=== PATIENT | female | born 1965 | race Caucasian/White ===

== ENCOUNTER 2021-04-02 19:28 | Inpatient (IN) | payer MEDICAID ==
[~2021-04-02] VITALS: Ht 162.6 cm; Wt 138.1 kg
[2021-04-02] MEDS ORDERED: PANTOPRAZOLE 40 MG/10 ML VIAL INJ IV STA (19:37)
[2021-04-02] MEDS ORDERED: MORPHINE SULFATE 4 MG/ML SYR/VIAL IV ONE (19:45)
[2021-04-02] MEDS ORDERED: ONDANSETRON HCL 4 MG/2 ML VIAL IV ONE (19:45)
[2021-04-02 20:20] LABS: Basophils # (auto) 0 10 ^3/uL (0-0.2); Eosinophils # (auto) 0 10 ^3/uL (0-0.8); Hemoglobin 12.2 g/dL (12.2-16.2); Lymphocytes # (auto) 1.8 10 ^3/uL (0.4-5.4); Monocytes # (auto) 0.2 10 ^3/uL (0-1.3)
[2021-04-02 20:21] LABS: Basophils % (auto) 0.4 % (0.0-2.0); Eosinophils % (auto) 0.4 % (0.0-7.0); Hematocrit 36.8 % (36.0-46.0); Lymphocytes % (auto) 17.7 % (10.0-50.0); Mean Corpuscular Hemoglobin 25.1 pg (28.0-32.0); Mean Corpuscular Hgb Conc. 33.1 g/dL (32.0-36.0); Mean Corpuscular Volume 75.8 fL (80.0-100.0); Neutrophils # (auto) 7.9 10 ^3/uL (1.6-8.6); Neutrophils % (auto) 79.5 % (37.0-80.0); Red Blood Cells 4.86 10^6/uL (4.0-5.20); Red Cell Distribution Width 16.1 % (11.8-14.3)
[2021-04-02 20:40] LABS: Chloride 104 mmol/L (98-107); Potassium 3.6 mmol/L (3.5-5.1); Sodium 138 mmol/L (136-145)
[2021-04-02 20:50] LABS: Alanine Aminotransferase 19 U/L (13-56); Albumin 3.3 g/dL (3.4-5.0); Alkaline Phosphatase 78 U/L (45-117); Amylase 50 U/L (25-115); Anion Gap 9 (5-15); Aspartate Aminotransferase 14 U/L (15-37); BUN/Creatinine Ratio 12.3; Bilirubin, Total 0.5 mg/dL (0.2-1.0); Blood Urea Nitrogen 7 mg/dL (7-18); Calcium 9.1 mg/dL (8.5-10.1); Carbon Dioxide 25 mmol/L (21-32); GFR African American 141 mL/min; GFR Non-African American 117 mL/min; Glucose 176 mg/dL (74-106); Lipase 53 U/L (73-393); Total Protein 7.8 g/dL (6.4-8.2)
[2021-04-02] MEDS ORDERED: SODIUM CHLORIDE 0.9% 1,000 ML IV ONE (21:45)
[2021-04-02] MEDS ORDERED: DEXTROSE (50%) 50ML SYRG IV PRN (22:30)
[2021-04-02] MEDS ORDERED: ACETAMINOPHEN 325 MG TAB PO PRN (22:30)
[2021-04-02] MEDS: cefTRIAXone 1GM/50ML D5W 50 ML IV SCH (23:19)
[2021-04-03] VITALS (7 sets, daily range): BP systolic 119–140; BP diastolic 69–79
[2021-04-03 00:09] LABS: Urine Bacteria FEW /hpf (None Seen); Urine Blood Negative /uL (Negative); Urine Mucus FEW (None Seen); Urine WBC 107 /hpf (0 - 5); Urine WBC Clumps PRESENT /hpf (None Seen)
[2021-04-03] MEDS: MORPHINE SULFATE 4 MG/ML SYR/VIAL IV PRN ×3 (01:16→22:15)
[2021-04-03] MEDS: ONDANSETRON HCL 4 MG/2 ML VIAL IV PRN (01:30)
[2021-04-03] MEDS: TEMAZEPAM 15 MG CAP PO PRN (01:38)
[2021-04-03] MEDS: GABAPENTIN 300 MG CAP PO SCH ×3 (05:42→21:53)
[2021-04-03] MEDS ORDERED: GABAPENTIN 300 MG CAP PO SCH (06:00)
[2021-04-03 06:06] LABS: Basophils # (auto) 0 10 ^3/uL (0-0.2); Eosinophils # (auto) 0 10 ^3/uL (0-0.8); Hemoglobin 11.1 g/dL (12.2-16.2)
[2021-04-03 06:09] LABS: Basophils % (auto) 0.2 % (0.0-2.0); Eosinophils % (auto) 0.1 % (0.0-7.0); Hematocrit 34.5 % (36.0-46.0); Lymphocytes # (auto) 2.6 10 ^3/uL (0.4-5.4); Mean Corpuscular Hemoglobin 24.7 pg (28.0-32.0); Mean Corpuscular Hgb Conc. 32.3 g/dL (32.0-36.0); Mean Corpuscular Volume 76.5 fL (80.0-100.0); Monocytes # (auto) 0.7 10 ^3/uL (0-1.3); Monocytes % (auto) 5.7 % (0.0-12.0); Neutrophils # (auto) 8.4 10 ^3/uL (1.6-8.6); Nucleated Red Blood Cells % 0.1 %; Red Blood Cells 4.52 10^6/uL (4.0-5.20); White Blood Cell 11.6 10^3/uL (4.4-10.8)
[2021-04-03] MEDS: ACCU-CHEK COMFORT CURVE STRIP VI SCH ×4 (06:15→21:54)
[2021-04-03] MEDS: InsuLIN REG 1unit/0.01ml Soln (100units/ml) SC SCH ×4 (06:15→22:00)
[2021-04-03] MEDS ORDERED: GABA-339 PO (06:18)
[2021-04-03] MEDS ORDERED: METF-370 PO (06:21)
[2021-04-03] MEDS ORDERED: SEMA2INJ SC (06:21)
[2021-04-03 06:35] LABS: Calcium 8.3 mg/dL (8.5-10.1); Potassium 3.6 mmol/L (3.5-5.1)
[2021-04-03 06:37] LABS: BUN/Creatinine Ratio 14.8
[2021-04-03] MEDS: HYDROcodone-ACET 5/325MG TAB PO PRN ×2 (09:04→15:40)
[2021-04-03] MEDS: FAMOTIDINE 20 MG TAB PO SCH ×2 (09:05→21:54)
[2021-04-03] MEDS ORDERED: ENOXAPARIN SOD 40 MG/0.4 ML SYRINGE SC ONE (13:45)
[2021-04-03] MEDS ORDERED: SOD CHL 0.45% WITH 20MEQ KCL 1,000 ML IV ONE (13:45)
[2021-04-03] MEDS: cefTRIAXone 1GM/50ML D5W 50 ML IV SCH (21:53)
[2021-04-04] MEDS: HYDROcodone-ACET 5/325MG TAB PO PRN ×3 (02:15→20:05)
[2021-04-04 04:56] VITALS: BP 108/62
[2021-04-04] MEDS: InsuLIN REG 1unit/0.01ml Soln (100units/ml) SC SCH ×4 (06:08→22:00)
[2021-04-04] MEDS: GABAPENTIN 300 MG CAP PO SCH ×3 (06:08→22:01)
[2021-04-04] MEDS: ACCU-CHEK COMFORT CURVE STRIP VI SCH ×4 (06:08→22:01)
[2021-04-04 09:00] VITALS: BP 135/69
[2021-04-04] MEDS ORDERED: ENOXAPARIN SOD 40 MG/0.4 ML SYRINGE SC SCH (10:00)
[2021-04-04] MEDS: FAMOTIDINE 20 MG TAB PO SCH ×2 (10:01→22:01)
[2021-04-04 12:33] LABS: Urine Bacteria NONE SEEN /hpf (None Seen); Urine Blood Negative /uL (Negative); Urine Mucus FEW (None Seen); Urine Specific Gravity 1.024 (1.001-1.035); Urine WBC 147 /hpf (0 - 5); Urine WBC Clumps PRESENT /hpf (None Seen)
[2021-04-04 13:00] VITALS: BP 114/72
[2021-04-04] MEDS: MORPHINE SULFATE 4 MG/ML SYR/VIAL IV PRN (13:57)
[2021-04-04 17:00] VITALS: BP 135/76
[2021-04-04 21:45] VITALS: BP 147/82
[2021-04-04] MEDS: cefTRIAXone 1GM/50ML D5W 50 ML IV SCH (22:00)
[2021-04-04] MEDS: ENOXAPARIN SOD 40 MG/0.4 ML SYRINGE SC SCH (22:01)
[2021-04-04] MEDS: TEMAZEPAM 15 MG CAP PO PRN (23:47)
[2021-04-05 05:14] VITALS: BP 129/81
[2021-04-05] MEDS: GABAPENTIN 300 MG CAP PO SCH ×3 (06:32→21:12)
[2021-04-05] MEDS: ACCU-CHEK COMFORT CURVE STRIP VI SCH ×4 (06:32→21:56)
[2021-04-05] MEDS: InsuLIN REG 1unit/0.01ml Soln (100units/ml) SC SCH ×4 (06:32→21:56)
[2021-04-05 08:00] VITALS: BP 133/84
[2021-04-05 08:30] VITALS: BP 133/84
[2021-04-05] MEDS: FAMOTIDINE 20 MG TAB PO SCH ×2 (09:50→21:13)
[2021-04-05] MEDS: ENOXAPARIN SOD 40 MG/0.4 ML SYRINGE SC SCH ×2 (09:50→21:13)
[2021-04-05] MEDS: HYDROcodone-ACET 5/325MG TAB PO PRN ×3 (10:05→21:24)
[2021-04-05] MEDS: metFORMIN HYDROCHLORIDE 500 MG TAB PO SCH ×2 (10:43→17:44)
[2021-04-05 12:30] VITALS: BP 152/88
[2021-04-05 16:51] VITALS: BP 132/86
[2021-04-05] MEDS: cefTRIAXone 1GM/50ML D5W 50 ML IV SCH (21:12)
[2021-04-05 22:00] VITALS: BP 132/67
[2021-04-06] MEDS: HYDROcodone-ACET 5/325MG TAB PO PRN ×2 (02:31→10:07)
[2021-04-06] MEDS: ONDANSETRON HCL 4 MG/2 ML VIAL IV PRN (02:31)
[2021-04-06] MEDS: MORPHINE SULFATE 4 MG/ML SYR/VIAL IV PRN (02:42)
[2021-04-06 05:00] VITALS: BP 122/73
[2021-04-06 06:00] LABS: Basophils # (auto) 0 10 ^3/uL (0-0.2); Basophils % (auto) 0.2 % (0.0-2.0); Eosinophils # (auto) 0.1 10 ^3/uL (0-0.8); Eosinophils % (auto) 1.5 % (0.0-7.0); Hematocrit 34.5 % (36.0-46.0); Hemoglobin 11.1 g/dL (12.2-16.2); Lymphocytes # (auto) 2.7 10 ^3/uL (0.4-5.4); Lymphocytes % (auto) 28.7 % (10.0-50.0); Mean Corpuscular Hemoglobin 24.9 pg (28.0-32.0); Mean Corpuscular Hgb Conc. 32.2 g/dL (32.0-36.0); Mean Corpuscular Volume 77.2 fL (80.0-100.0); Monocytes # (auto) 0.7 10 ^3/uL (0-1.3); Monocytes % (auto) 7.4 % (0.0-12.0); Neutrophils # (auto) 5.8 10 ^3/uL (1.6-8.6); Neutrophils % (auto) 62.2 % (37.0-80.0); Nucleated Red Blood Cells % 0.1 %; Red Blood Cells 4.47 10^6/uL (4.0-5.20); Red Cell Distribution Width 16.1 % (11.8-14.3); White Blood Cell 9.3 10^3/uL (4.4-10.8)
[2021-04-06] MEDS: GABAPENTIN 300 MG CAP PO SCH (06:00)
[2021-04-06] MEDS: ACCU-CHEK COMFORT CURVE STRIP VI SCH ×2 (06:11→11:28)
[2021-04-06 06:12] LABS: BUN/Creatinine Ratio 27.5; Calcium 8.4 mg/dL (8.5-10.1); Potassium 3.8 mmol/L (3.5-5.1)
[2021-04-06] MEDS: InsuLIN REG 1unit/0.01ml Soln (100units/ml) SC SCH ×2 (06:17→11:29)
[2021-04-06 08:00] VITALS: BP 122/73
[2021-04-06] MEDS: metFORMIN HYDROCHLORIDE 500 MG TAB PO SCH (08:06)
[2021-04-06] MEDS: ENOXAPARIN SOD 40 MG/0.4 ML SYRINGE SC SCH (09:49)
[2021-04-06] MEDS: FAMOTIDINE 20 MG TAB PO SCH (09:52)
[2021-04-06] MEDS ORDERED: CEFU500T43 PO (09:53)
[2021-04-06 10:49] VITALS: BP 122/73
[2021-04-06 12:52] VITALS: BP 133/71
== END 2021-04-06 13:30 | disposition home or self-care (01) | DRG 463 ==
LOC: EDSEX 19:28 → EDBD 19:28 → ER 19:30 → OVERFLOW 22:33 → WEST WING 23:23
PROVIDERS: ADMIT Nurse Practitioner; ATTEND Internal Medicine
DX: N13.6 Pyonephrosis (principal); E11.40 Type 2 diabetes mellitus with diabetic neuropathy, unspecified; E27.8 Other specified disorders of adrenal gland; E66.01 Morbid (severe) obesity due to excess calories; E44.1 Mild protein-calorie malnutrition; K57.30 Diverticulosis of large intestine without perforation or abscess without bleeding; K43.9 Ventral hernia without obstruction or gangrene; D35.02 Benign neoplasm of left adrenal gland; Z20.822 Contact with and (suspected) exposure to COVID-19; Z68.43 Body mass index [BMI] 50.0-59.9, adult; K59.00 Constipation, unspecified; Z83.3 Family history of diabetes mellitus; Z90.49 Acquired absence of other specified parts of digestive tract; Z90.710 Acquired absence of both cervix and uterus; Z79.899 Other long term (current) drug therapy
CPT/HCPCS: 36415; 74176; 80048; 80053; 81001; 82150; 82962; 83036; 83690; 84484; 85025; 87081; 87086; 87426; 93005; 96361; 96374; 96375; C9113; G0378; J0696; J1815; J2405

== ENCOUNTER 2021-05-06 12:15 | Inpatient (IN) | payer MEDICAID ==
[~2021-05-06] VITALS: Ht 162.6 cm; Wt 145.3 kg
[~2021-05-06 12:15] MED LIST: CEFU500T43 PO; GABA-339 PO; METF-370 PO; SEMA2INJ SC
[2021-05-06] MEDS ORDERED: ONDANSETRON HCL 4 MG/2 ML VIAL IV ONE (12:30)
[2021-05-06] MEDS ORDERED: TAMSULOSIN HYDROCHLORIDE 0.4 MG CAP PO ONE (12:30)
[2021-05-06] MEDS ORDERED: KETOROLAC TROMETH 30 MG/ML 1ML VIAL IV ONE (12:30)
[2021-05-06] MEDS ORDERED: SODIUM CHLORIDE 0.9% 1,000 ML IV ONE ×2 (12:30)
[2021-05-06 13:40] LABS: Basophils # (auto) 0 10 ^3/uL (0-0.2); Eosinophils # (auto) 0 10 ^3/uL (0-0.8); Eosinophils % (auto) 0.1 % (0.0-7.0); Hemoglobin 11.2 g/dL (12.2-16.2); Monocytes # (auto) 1.6 10 ^3/uL (0-1.3)
[2021-05-06 13:43] LABS: Basophils % (auto) 0.2 % (0.0-2.0); Hematocrit 35.5 % (36.0-46.0); Lymphocytes % (auto) 10.4 % (10.0-50.0); Mean Corpuscular Hemoglobin 24.3 pg (28.0-32.0); Mean Corpuscular Hgb Conc. 31.6 g/dL (32.0-36.0); Mean Corpuscular Volume 77.1 fL (80.0-100.0); Monocytes % (auto) 8.2 % (0.0-12.0); Neutrophils # (auto) 15.4 10 ^3/uL (1.6-8.6); Neutrophils % (auto) 81.1 % (37.0-80.0); Nucleated Red Blood Cells % 0.1 %; Platelet Count (auto) 301 10^3/uL (140-450); Red Blood Cells 4.61 10^6/uL (4.0-5.20)
[2021-05-06 13:52] LABS: Albumin 2.8 g/dL (3.4-5.0); Calcium 8.6 mg/dL (8.5-10.1); Potassium 3.4 mmol/L (3.5-5.1)
[2021-05-06 13:55] LABS: BUN/Creatinine Ratio 12.9; Bilirubin, Total 0.7 mg/dL (0.2-1.0); Total Protein 7.4 g/dL (6.4-8.2)
[2021-05-06 15:51] LABS: Urine Bacteria MOD /hpf (None Seen); Urine Blood 2+ /uL (Negative); Urine Mucus FEW (None Seen); Urine Specific Gravity 1.026 (1.001-1.035); Urine WBC 435 /hpf (0 - 5)
[2021-05-06] MEDS ORDERED: cefTRIAXone 1GM/50ML D5W 50 ML IV ONE (16:45)
[2021-05-06] MEDS ORDERED: DEXTROSE (50%) 50ML SYRG IV PRN (17:00)
[2021-05-06] MEDS ORDERED: PROMETHAZINE HCL 25 MG/ML 1ML IV PRN (17:00)
[2021-05-06] MEDS ORDERED: PIPERACILLIN-TAZOB 3.375GM 100 ML IV ONE (17:00)
[2021-05-06] MEDS ORDERED: traMADol HCL 50 MG TAB PO PRN (17:00)
[2021-05-06] MEDS ORDERED: NITROGLYCERIN 0.4 MG SL TAB SL PRN (17:00)
[2021-05-06] MEDS ORDERED: ACETAMINOPHEN 500 MG TAB PO PRN (17:00)
[2021-05-06] MEDS ORDERED: MORPHINE SULF INJ 2 MG/ML SYRINGE 1ML IV PRN (17:00)
[2021-05-06] MEDS ORDERED: TEMAZEPAM 15 MG CAP PO PRN (17:00)
[2021-05-06] MEDS: FAMOTIDINE (10MG/ML) 2ML VL IV SCH (17:47)
[2021-05-06] MEDS: MORPHINE SULF INJ 2 MG/ML SYRINGE 1ML IV PRN ×2 (17:47→22:55)
[2021-05-06] MEDS: SODIUM CHLORIDE 0.9% 1,000 ML IV SCH (18:58)
[2021-05-06 19:39] LABS: INR 1.05 (0.9-1.15)
[2021-05-06] MEDS: ACCU-CHEK COMFORT CURVE STRIP VI SCH (20:23)
[2021-05-06] MEDS: InsuLIN REG 1unit/0.01ml Soln (100units/ml) SC SCH (20:25)
[2021-05-06 21:37] VITALS: BP 127/75
[2021-05-06 22:53] VITALS: BP 127/75
[2021-05-07] MEDS: ACCU-CHEK COMFORT CURVE STRIP VI SCH ×7 (00:45→23:38)
[2021-05-07] MEDS: PIPERACILLIN-TAZOB 3.375GM 100 ML IV SCH ×5 (00:46→23:38)
[2021-05-07] MEDS: SODIUM CHLORIDE 0.9% 1,000 ML IV SCH ×3 (01:00→17:00)
[2021-05-07] MEDS: InsuLIN REG 1unit/0.01ml Soln (100units/ml) SC SCH ×7 (04:33→23:39)
[2021-05-07 05:00] VITALS: BP 115/63
[2021-05-07] MEDS: FAMOTIDINE (10MG/ML) 2ML VL IV SCH (05:31)
[2021-05-07 07:14] LABS: Basophils # (auto) 0 10 ^3/uL (0-0.2); Basophils % (auto) 0.2 % (0.0-2.0); Eosinophils # (auto) 0.1 10 ^3/uL (0-0.8); Eosinophils % (auto) 0.4 % (0.0-7.0)
[2021-05-07 07:16] LABS: Hematocrit 30.5 % (36.0-46.0); Lymphocytes # (auto) 2.4 10 ^3/uL (0.4-5.4); Mean Corpuscular Hgb Conc. 32.6 g/dL (32.0-36.0); Mean Corpuscular Volume 76.6 fL (80.0-100.0); Monocytes # (auto) 1.3 10 ^3/uL (0-1.3); Monocytes % (auto) 9.2 % (0.0-12.0); Neutrophils # (auto) 10.3 10 ^3/uL (1.6-8.6); Neutrophils % (auto) 73.2 % (37.0-80.0); Platelet Count (auto) 263 10^3/uL (140-450); Red Blood Cells 3.98 10^6/uL (4.0-5.20); Red Cell Distribution Width 16.8 % (11.8-14.3)
[2021-05-07 07:32] LABS: Potassium 3.1 mmol/L (3.5-5.1)
[2021-05-07 07:36] LABS: Albumin 2.5 g/dL (3.4-5.0); BUN/Creatinine Ratio 17.1; Bilirubin, Total 0.6 mg/dL (0.2-1.0); Calcium 8.2 mg/dL (8.5-10.1); Total Protein 6.7 g/dL (6.4-8.2)
[2021-05-07] MEDS: MORPHINE SULF INJ 2 MG/ML SYRINGE 1ML IV PRN (08:02)
[2021-05-07 10:00] VITALS: BP 114/67
[2021-05-07] MEDS ORDERED: POTASSIUM CHLORIDE 40 MEQ, LIDOCAINE 1% (LOCAL ANESTH.) 4 ML in SODIUM CHL 0.9% 250 ML IV ONE (11:45)
[2021-05-07] MEDS: HYDROmorphone HCL 2 MG/ML VL IV PRN ×3 (12:18→23:39)
[2021-05-07 13:00] VITALS: BP 115/73
[2021-05-07] MEDS ORDERED: HEPARIN SODIUM (PORCINE) 5000 UNITS/ML 1ML VIAL ONE (15:10)
[2021-05-07] MEDS ORDERED: fentaNYL CITRATE 100 MCG/2 ML VL ONE (15:10)
[2021-05-07] MEDS ORDERED: MIDAZOLAM HCL 1MG/1ML-2 ML VIAL ONE (15:10)
[2021-05-07] MEDS ORDERED: IODIXANOL 320MG/ML 100ML BTL IV ONE (15:12)
[2021-05-07] MEDS ORDERED: LIDOCAINE 2%HCL (LOCAL ANESTH.) INJ 20ML MDV ONE (15:12)
[2021-05-08] MEDS: SODIUM CHLORIDE 0.9% 1,000 ML IV SCH ×3 (01:00→17:00)
[2021-05-08] MEDS: ACCU-CHEK COMFORT CURVE STRIP VI SCH ×6 (04:05→23:46)
[2021-05-08] MEDS: InsuLIN REG 1unit/0.01ml Soln (100units/ml) SC SCH ×6 (04:08→23:48)
[2021-05-08] MEDS: HYDROmorphone HCL 2 MG/ML VL IV PRN ×4 (04:38→21:24)
[2021-05-08] MEDS: PIPERACILLIN-TAZOB 3.375GM 100 ML IV SCH ×4 (05:59→23:46)
[2021-05-08 06:01] VITALS: BP 105/67
[2021-05-08 06:13] LABS: Basophils # (auto) 0 10 ^3/uL (0-0.2); Hematocrit 31.2 % (36.0-46.0); Lymphocytes # (auto) 1.3 10 ^3/uL (0.4-5.4); Monocytes # (auto) 1.1 10 ^3/uL (0-1.3)
[2021-05-08 06:16] LABS: Basophils % (auto) 0.2 % (0.0-2.0); Eosinophils # (auto) 0 10 ^3/uL (0-0.8); Eosinophils % (auto) 0.3 % (0.0-7.0); Hemoglobin 10.3 g/dL (12.2-16.2); Lymphocytes % (auto) 9.9 % (10.0-50.0); Mean Corpuscular Hemoglobin 25.3 pg (28.0-32.0); Mean Corpuscular Volume 76.7 fL (80.0-100.0); Monocytes % (auto) 8.2 % (0.0-12.0); Neutrophils # (auto) 10.9 10 ^3/uL (1.6-8.6); Neutrophils % (auto) 81.4 % (37.0-80.0); Platelet Count (auto) 276 10^3/uL (140-450); Red Blood Cells 4.06 10^6/uL (4.0-5.20); Red Cell Distribution Width 16.7 % (11.8-14.3); White Blood Cell 13.4 10^3/uL (4.4-10.8)
[2021-05-08 06:31] LABS: Potassium 3.4 mmol/L (3.5-5.1)
[2021-05-08 06:34] LABS: BUN/Creatinine Ratio 20.4
[2021-05-08 09:00] VITALS: BP 119/70
[2021-05-08] MEDS ORDERED: POTASSIUM CHL 20 Meq TABLET PO ONE (10:30)
[2021-05-08 12:29] VITALS: BP 128/71
[2021-05-08 16:32] VITALS: BP 122/78
[2021-05-08] MEDS ORDERED: ALPRAZolam 0.25 MG TAB PO PRN (18:30)
[2021-05-08 22:00] VITALS: BP 119/72
[2021-05-09] MEDS: SODIUM CHLORIDE 0.9% 1,000 ML IV SCH ×2 (01:00→12:30)
[2021-05-09] MEDS: InsuLIN REG 1unit/0.01ml Soln (100units/ml) SC SCH ×5 (04:00→22:03)
[2021-05-09] MEDS: ACCU-CHEK COMFORT CURVE STRIP VI SCH ×5 (04:07→22:06)
[2021-05-09] MEDS: HYDROmorphone HCL 2 MG/ML VL IV PRN ×3 (04:35→22:06)
[2021-05-09 05:00] VITALS: BP 145/62
[2021-05-09] MEDS: PIPERACILLIN-TAZOB 3.375GM 100 ML IV SCH (05:21)
[2021-05-09 07:05] LABS: Basophils # (auto) 0 10 ^3/uL (0-0.2); Eosinophils # (auto) 0.1 10 ^3/uL (0-0.8); Hemoglobin 9.7 g/dL (12.2-16.2); Lymphocytes # (auto) 1.6 10 ^3/uL (0.4-5.4); Lymphocytes % (auto) 14.8 % (10.0-50.0); Monocytes # (auto) 1.1 10 ^3/uL (0-1.3); Neutrophils # (auto) 7.9 10 ^3/uL (1.6-8.6); Nucleated Red Blood Cells % 0.1 %
[2021-05-09 07:08] LABS: BUN/Creatinine Ratio 26.1; Basophils % (auto) 0.3 % (0.0-2.0); Calcium 8.4 mg/dL (8.5-10.1); Eosinophils % (auto) 0.7 % (0.0-7.0); Hematocrit 29.6 % (36.0-46.0); Mean Corpuscular Hemoglobin 25.1 pg (28.0-32.0); Mean Corpuscular Hgb Conc. 32.9 g/dL (32.0-36.0); Mean Corpuscular Volume 76.4 fL (80.0-100.0); Neutrophils % (auto) 74.2 % (37.0-80.0); Platelet Count (auto) 284 10^3/uL (140-450); Potassium 3.3 mmol/L (3.5-5.1); Red Blood Cells 3.88 10^6/uL (4.0-5.20); Red Cell Distribution Width 16.5 % (11.8-14.3); White Blood Cell 10.6 10^3/uL (4.4-10.8)
[2021-05-09 08:55] VITALS: BP 113/69
[2021-05-09] MEDS ORDERED: DEXTROSE (50%) 50ML SYRG IV PRN (11:30)
[2021-05-09] MEDS ORDERED: POTASSIUM CHL 20 Meq TABLET PO ONE (11:30)
[2021-05-09] MEDS: cefTRIAXone 1GM/50ML D5W 50 ML IV SCH (12:03)
[2021-05-09 13:00] VITALS: BP 119/69
[2021-05-09 17:00] VITALS: BP 113/65
[2021-05-09 23:39] VITALS: BP 114/68
[2021-05-10] MEDS: SODIUM CHLORIDE 0.9% 1,000 ML IV SCH ×2 (01:10→14:10)
[2021-05-10 05:00] VITALS: BP 95/55
[2021-05-10 06:31] LABS: Basophils # (auto) 0 10 ^3/uL (0-0.2); Basophils % (auto) 0.4 % (0.0-2.0); Eosinophils # (auto) 0.1 10 ^3/uL (0-0.8); Hematocrit 29.7 % (36.0-46.0); Hemoglobin 9.7 g/dL (12.2-16.2); Lymphocytes # (auto) 2.4 10 ^3/uL (0.4-5.4); Mean Corpuscular Hgb Conc. 32.7 g/dL (32.0-36.0)
[2021-05-10 06:33] LABS: Eosinophils % (auto) 1.4 % (0.0-7.0); Lymphocytes % (auto) 22.8 % (10.0-50.0); Mean Corpuscular Hemoglobin 24.9 pg (28.0-32.0); Mean Corpuscular Volume 76.4 fL (80.0-100.0); Monocytes # (auto) 0.9 10 ^3/uL (0-1.3); Neutrophils # (auto) 6.9 10 ^3/uL (1.6-8.6); Neutrophils % (auto) 66.4 % (37.0-80.0); Nucleated Red Blood Cells % 0.1 %; Platelet Count (auto) 302 10^3/uL (140-450); Red Blood Cells 3.89 10^6/uL (4.0-5.20); Red Cell Distribution Width 16.6 % (11.8-14.3); White Blood Cell 10.4 10^3/uL (4.4-10.8)
[2021-05-10] MEDS: InsuLIN REG 1unit/0.01ml Soln (100units/ml) SC SCH ×4 (06:35→22:00)
[2021-05-10] MEDS: ACCU-CHEK COMFORT CURVE STRIP VI SCH ×4 (06:38→22:00)
[2021-05-10 06:46] LABS: Potassium 3.5 mmol/L (3.5-5.1)
[2021-05-10 06:53] LABS: BUN/Creatinine Ratio 27.1; Calcium 8.5 mg/dL (8.5-10.1)
[2021-05-10] MEDS: HYDROmorphone HCL 2 MG/ML VL IV PRN ×3 (07:46→20:43)
[2021-05-10 09:00] VITALS: BP 112/69
[2021-05-10] MEDS: cefTRIAXone 1GM/50ML D5W 50 ML IV SCH (09:10)
[2021-05-10] MEDS ORDERED: SODIUM CHLORIDE 0.9% 1,000 ML IV ONE (10:00)
[2021-05-10] MEDS ORDERED: IOHEXOL 300 MG/ML 100ML BOTTLE IJ ONE (11:21)
[2021-05-10 13:00] VITALS: BP 130/78
[2021-05-10 14:16] LABS: INR 1.04 (0.9-1.15); Partial Thromboplastin Time 23.5 sec (23.0-31.2)
[2021-05-10 17:00] VITALS: BP_SYST 126; BP_SYST 99; BP_DIAS 59; BP_DIAS 65
[2021-05-10 18:00] VITALS: BP 97/66
[2021-05-11] MEDS: HYDROmorphone HCL 2 MG/ML VL IV PRN ×4 (02:29→22:23)
[2021-05-11 05:00] VITALS: BP 129/77
[2021-05-11] MEDS: SODIUM CHLORIDE 0.9% 1,000 ML IV SCH ×2 (05:38→16:40)
[2021-05-11] MEDS: ACCU-CHEK COMFORT CURVE STRIP VI SCH ×4 (06:26→22:23)
[2021-05-11] MEDS: InsuLIN REG 1unit/0.01ml Soln (100units/ml) SC SCH ×4 (06:26→22:20)
[2021-05-11 06:40] LABS: Basophils # (auto) 0 10 ^3/uL (0-0.2); Eosinophils # (auto) 0.2 10 ^3/uL (0-0.8); Eosinophils % (auto) 1.4 % (0.0-7.0); Hemoglobin 9.9 g/dL (12.2-16.2); Monocytes # (auto) 0.7 10 ^3/uL (0-1.3); Monocytes % (auto) 5.9 % (0.0-12.0); Red Cell Distribution Width 16.7 % (11.8-14.3); White Blood Cell 11.7 10^3/uL (4.4-10.8)
[2021-05-11 06:43] LABS: Basophils % (auto) 0.3 % (0.0-2.0); Hematocrit 30.6 % (36.0-46.0); Lymphocytes # (auto) 3.1 10 ^3/uL (0.4-5.4); Lymphocytes % (auto) 26.3 % (10.0-50.0); Mean Corpuscular Hgb Conc. 32.5 g/dL (32.0-36.0); Mean Corpuscular Volume 77.1 fL (80.0-100.0); Neutrophils # (auto) 7.7 10 ^3/uL (1.6-8.6); Neutrophils % (auto) 66.1 % (37.0-80.0); Platelet Count (auto) 359 10^3/uL (140-450); Red Blood Cells 3.97 10^6/uL (4.0-5.20)
[2021-05-11 06:59] LABS: BUN/Creatinine Ratio 25.6; Calcium 8.6 mg/dL (8.5-10.1); Potassium 3.6 mmol/L (3.5-5.1)
[2021-05-11 08:15] VITALS: BP 96/55
[2021-05-11] MEDS: cefTRIAXone 1GM/50ML D5W 50 ML IV SCH (08:43)
[2021-05-11 09:00] VITALS: BP 96/55
[2021-05-11 13:00] VITALS: BP 96/47
[2021-05-11] MEDS ORDERED: MIDAZOLAM HCL 1MG/1ML-2 ML VIAL ONE (16:45)
[2021-05-11] MEDS ORDERED: fentaNYL CITRATE 100 MCG/2 ML VL ONE (16:45)
[2021-05-11] MEDS ORDERED: LIDOCAINE 2%HCL (LOCAL ANESTH.) INJ 20ML MDV ONE (17:00)
[2021-05-11] MEDS ORDERED: IOHEXOL 350 MG/ML 100ML IJ ONE (17:13)
[2021-05-11 22:00] VITALS: BP 117/67
[2021-05-11] MEDS: SODIUM CHLOR 0.9% PF (SALINE LOCK) 10ML VIAL/SYR IV SCH (22:19)
[2021-05-12] VITALS (7 sets, daily range): BP systolic 102–135; BP diastolic 50–71
[2021-05-12] MEDS: SODIUM CHLOR 0.9% PF (SALINE LOCK) 10ML VIAL/SYR IV SCH ×3 (06:31→21:47)
[2021-05-12] MEDS: ACCU-CHEK COMFORT CURVE STRIP VI SCH ×4 (06:32→21:48)
[2021-05-12] MEDS: InsuLIN REG 1unit/0.01ml Soln (100units/ml) SC SCH ×4 (06:32→21:55)
[2021-05-12] MEDS: SODIUM CHLORIDE 0.9% 1,000 ML IV SCH ×2 (06:32→20:00)
[2021-05-12 08:15] LABS: Eosinophils # (auto) 0.1 10 ^3/uL (0-0.8); Hemoglobin 9.7 g/dL (12.2-16.2); Monocytes # (auto) 0.6 10 ^3/uL (0-1.3)
[2021-05-12 08:17] LABS: Basophils # (auto) 0 10 ^3/uL (0-0.2); Basophils % (auto) 0.3 % (0.0-2.0); Eosinophils % (auto) 1.2 % (0.0-7.0); Hematocrit 29.8 % (36.0-46.0); Lymphocytes # (auto) 2.2 10 ^3/uL (0.4-5.4); Lymphocytes % (auto) 20.8 % (10.0-50.0); Mean Corpuscular Hemoglobin 24.6 pg (28.0-32.0); Mean Corpuscular Hgb Conc. 32.5 g/dL (32.0-36.0); Mean Corpuscular Volume 75.7 fL (80.0-100.0); Monocytes % (auto) 6.1 % (0.0-12.0); Neutrophils # (auto) 7.5 10 ^3/uL (1.6-8.6); Neutrophils % (auto) 71.6 % (37.0-80.0); Platelet Count (auto) 378 10^3/uL (140-450); Red Blood Cells 3.93 10^6/uL (4.0-5.20); Red Cell Distribution Width 16.9 % (11.8-14.3); White Blood Cell 10.5 10^3/uL (4.4-10.8)
[2021-05-12 08:48] LABS: BUN/Creatinine Ratio 24.3; Calcium 8.6 mg/dL (8.5-10.1); Potassium 3.6 mmol/L (3.5-5.1)
[2021-05-12] MEDS: cefTRIAXone 1GM/50ML D5W 50 ML IV SCH (09:02)
[2021-05-12 16:10] LABS: % Iron Saturation 8.4 % (15-50)
[2021-05-12] MEDS: HYDROmorphone HCL 2 MG/ML VL IV PRN ×2 (17:27→21:55)
[2021-05-13] VITALS (7 sets, daily range): BP systolic 111–150; BP diastolic 56–79
[2021-05-13] MEDS: SODIUM CHLOR 0.9% PF (SALINE LOCK) 10ML VIAL/SYR IV SCH ×3 (06:25→21:42)
[2021-05-13] MEDS: InsuLIN REG 1unit/0.01ml Soln (100units/ml) SC SCH ×4 (06:32→21:43)
[2021-05-13] MEDS: ACCU-CHEK COMFORT CURVE STRIP VI SCH ×4 (06:32→21:43)
[2021-05-13] MEDS: SODIUM CHLORIDE 0.9% 1,000 ML IV SCH (08:35)
[2021-05-13] MEDS: CEFTRIAXONE SODIUM 2 GM in D5W 5% 50 ML IV SCH (09:39)
[2021-05-13] MEDS: HYDROmorphone HCL 2 MG/ML VL IV PRN ×3 (09:39→21:24)
[2021-05-13] MEDS: GABAPENTIN 300 MG CAP PO SCH ×2 (14:17→21:42)
[2021-05-13] MEDS ORDERED: SODIUM FERR GLUC 62.5MG/5ML 125 MG in SODIUM CHL 0.9% 100 ML IV ONE (14:30)
[2021-05-13 15:42] LABS: Basophils # (auto) 0.1 10 ^3/uL (0-0.2); Basophils % (auto) 0.5 % (0.0-2.0); Eosinophils # (auto) 0.1 10 ^3/uL (0-0.8); Lymphocytes # (auto) 2.5 10 ^3/uL (0.4-5.4); Monocytes # (auto) 0.6 10 ^3/uL (0-1.3); Nucleated Red Blood Cells % 0.1 %
[2021-05-13 15:43] LABS: Eosinophils % (auto) 0.8 % (0.0-7.0); Hematocrit 29.8 % (36.0-46.0); Hemoglobin 9.8 g/dL (12.2-16.2); Lymphocytes % (auto) 23.7 % (10.0-50.0); Mean Corpuscular Hemoglobin 25.1 pg (28.0-32.0); Mean Corpuscular Hgb Conc. 32.9 g/dL (32.0-36.0); Mean Corpuscular Volume 76.2 fL (80.0-100.0); Monocytes % (auto) 5.5 % (0.0-12.0); Neutrophils # (auto) 7.2 10 ^3/uL (1.6-8.6); Neutrophils % (auto) 69.5 % (37.0-80.0); Platelet Count (auto) 399 10^3/uL (140-450); Red Blood Cells 3.91 10^6/uL (4.0-5.20); Red Cell Distribution Width 16.5 % (11.8-14.3); White Blood Cell 10.4 10^3/uL (4.4-10.8)
[2021-05-13 15:44] LABS: Calcium 8.6 mg/dL (8.5-10.1); Potassium 3.9 mmol/L (3.5-5.1)
[2021-05-14] MEDS: HYDROmorphone HCL 2 MG/ML VL IV PRN ×5 (03:34→23:07)
[2021-05-14 05:00] VITALS: BP 124/68
[2021-05-14] MEDS: SODIUM CHLOR 0.9% PF (SALINE LOCK) 10ML VIAL/SYR IV SCH ×3 (06:15→21:31)
[2021-05-14] MEDS: GABAPENTIN 300 MG CAP PO SCH ×3 (06:15→21:31)
[2021-05-14] MEDS: InsuLIN REG 1unit/0.01ml Soln (100units/ml) SC SCH ×4 (06:31→21:31)
[2021-05-14] MEDS: ACCU-CHEK COMFORT CURVE STRIP VI SCH ×4 (06:31→21:32)
[2021-05-14 07:49] LABS: Basophils # (auto) 0.1 10 ^3/uL (0-0.2); Eosinophils # (auto) 0.1 10 ^3/uL (0-0.8); Monocytes # (auto) 0.6 10 ^3/uL (0-1.3); Red Cell Distribution Width 16.7 % (11.8-14.3)
[2021-05-14 07:51] LABS: Eosinophils % (auto) 1.1 % (0.0-7.0); Hematocrit 30.5 % (36.0-46.0); Hemoglobin 9.9 g/dL (12.2-16.2); Lymphocytes # (auto) 2.5 10 ^3/uL (0.4-5.4); Mean Corpuscular Hemoglobin 25.3 pg (28.0-32.0); Mean Corpuscular Hgb Conc. 32.4 g/dL (32.0-36.0); Mean Corpuscular Volume 78.2 fL (80.0-100.0); Monocytes % (auto) 5.6 % (0.0-12.0); Neutrophils # (auto) 7.4 10 ^3/uL (1.6-8.6); Neutrophils % (auto) 69.3 % (37.0-80.0); Nucleated Red Blood Cells % 0.1 %; Platelet Count (auto) 348 10^3/uL (140-450); White Blood Cell 10.7 10^3/uL (4.4-10.8)
[2021-05-14 08:01] LABS: Potassium 4.2 mmol/L (3.5-5.1)
[2021-05-14 08:12] LABS: Albumin 2.5 g/dL (3.4-5.0); BUN/Creatinine Ratio 22.7; Bilirubin, Total 0.3 mg/dL (0.2-1.0); Calcium 8.7 mg/dL (8.5-10.1); Total Protein 6.9 g/dL (6.4-8.2)
[2021-05-14 09:00] VITALS: BP_SYST 111; BP_SYST 123; BP_DIAS 44; BP_DIAS 80
[2021-05-14] MEDS: CEFTRIAXONE SODIUM 2 GM in D5W 5% 50 ML IV SCH (10:33)
[2021-05-14] MEDS ORDERED: SODIUM FERR GLUC 62.5MG/5ML 125 MG in SODIUM CHL 0.9% 100 ML IV SCH (12:00)
[2021-05-14 13:00] VITALS: BP_SYST 104; BP_SYST 110; BP_DIAS 48; BP_DIAS 65
[2021-05-14] MEDS ORDERED: IOHEXOL 300 MG/ML 100ML BOTTLE IJ ONE (13:11)
[2021-05-14 17:00] VITALS: BP 141/51
[2021-05-14 20:00] VITALS: BP 105/64
[2021-05-14 22:00] VITALS: BP 105/64
[2021-05-15 05:00] VITALS: BP 110/75
[2021-05-15] MEDS: HYDROmorphone HCL 2 MG/ML VL IV PRN ×4 (05:18→20:21)
[2021-05-15] MEDS: GABAPENTIN 300 MG CAP PO SCH ×3 (05:18→22:37)
[2021-05-15] MEDS: SODIUM CHLOR 0.9% PF (SALINE LOCK) 10ML VIAL/SYR IV SCH ×3 (05:19→22:36)
[2021-05-15] MEDS: ACCU-CHEK COMFORT CURVE STRIP VI SCH ×4 (06:08→22:00)
[2021-05-15] MEDS: InsuLIN REG 1unit/0.01ml Soln (100units/ml) SC SCH ×4 (06:09→22:39)
[2021-05-15 09:00] VITALS: BP 139/86
[2021-05-15] MEDS: CEFTRIAXONE SODIUM 2 GM in D5W 5% 50 ML IV SCH (10:41)
[2021-05-15 13:00] VITALS: BP 110/70
[2021-05-15 17:00] VITALS: BP 130/68
[2021-05-15 20:00] VITALS: BP 104/62
[2021-05-15 22:00] VITALS: BP 104/62
[2021-05-16] MEDS: HYDROmorphone HCL 2 MG/ML VL IV PRN ×4 (04:34→18:53)
[2021-05-16 05:00] VITALS: BP 126/84
[2021-05-16] MEDS: SODIUM CHLOR 0.9% PF (SALINE LOCK) 10ML VIAL/SYR IV SCH ×3 (06:22→21:54)
[2021-05-16] MEDS: GABAPENTIN 300 MG CAP PO SCH ×3 (06:23→21:54)
[2021-05-16] MEDS: ACCU-CHEK COMFORT CURVE STRIP VI SCH ×4 (06:26→21:54)
[2021-05-16] MEDS: InsuLIN REG 1unit/0.01ml Soln (100units/ml) SC SCH ×4 (06:27→21:59)
[2021-05-16 09:00] VITALS: BP 116/65
[2021-05-16] MEDS: CEFTRIAXONE SODIUM 2 GM in D5W 5% 50 ML IV SCH (09:16)
[2021-05-16 13:00] VITALS: BP 110/60
[2021-05-16 16:27] VITALS: BP 110/51
[2021-05-16 20:00] VITALS: BP 138/79
[2021-05-16 22:19] VITALS: BP 138/79
[2021-05-17] MEDS: HYDROmorphone HCL 2 MG/ML VL IV PRN ×5 (00:12→21:32)
[2021-05-17 05:31] VITALS: BP 135/70
[2021-05-17] MEDS: SODIUM CHLOR 0.9% PF (SALINE LOCK) 10ML VIAL/SYR IV SCH ×3 (05:34→22:00)
[2021-05-17] MEDS: GABAPENTIN 300 MG CAP PO SCH ×3 (05:36→21:31)
[2021-05-17] MEDS: InsuLIN REG 1unit/0.01ml Soln (100units/ml) SC SCH ×4 (06:26→23:27)
[2021-05-17] MEDS: ACCU-CHEK COMFORT CURVE STRIP VI SCH ×4 (06:26→22:00)
[2021-05-17 09:00] VITALS: BP 110/97
[2021-05-17] MEDS: CEFTRIAXONE SODIUM 2 GM in D5W 5% 50 ML IV SCH (09:22)
[2021-05-17] MEDS ORDERED: IOHEXOL 300 MG/ML 100ML BOTTLE IJ ONE (12:32)
[2021-05-17] MEDS ORDERED: SUCCINYLCHOLINE CHLORIDE 20 MG/ML 10ML VIAL IV ONE (12:52)
[2021-05-17] MEDS ORDERED: fentaNYL CITRATE 100 MCG/2 ML VL ONE (12:53)
[2021-05-17] MEDS ORDERED: MIDAZOLAM HCL 1MG/1ML-2 ML VIAL ONE (12:53)
[2021-05-17] MEDS ORDERED: ROCURONIUM 10MG/ML 10ML VIAL IV ONE (13:18)
[2021-05-17] MEDS ORDERED: PROPOFOL 10 MG/ML 20 ML IV ONE (13:30)
[2021-05-17] MEDS ORDERED: LIDOCAINE 2% (LOCAL ANESTH.) PF 5ml SDV ONE (13:30)
[2021-05-17] MEDS ORDERED: ONDANSETRON HCL 4 MG/2 ML VIAL ONE (13:30)
[2021-05-17] MEDS ORDERED: GLYCOPYRROLATE 0.2 MG/ML 1ML VIAL ONE (14:14)
[2021-05-17] MEDS ORDERED: HYDROmorphone HCL 2 MG/ML VL IV PRN (14:45)
[2021-05-17] MEDS ORDERED: ONDANSETRON HCL 4 MG/2 ML VIAL IV PRN (14:45)
[2021-05-17 17:00] VITALS: BP 108/60
[2021-05-17 22:00] VITALS: BP 140/66
[2021-05-18] MEDS: HYDROmorphone HCL 2 MG/ML VL IV PRN ×2 (04:30→08:43)
[2021-05-18 05:00] VITALS: BP_SYST 119; BP_DIAS 54; BP_DIAS 79
[2021-05-18] MEDS: SODIUM CHLOR 0.9% PF (SALINE LOCK) 10ML VIAL/SYR IV SCH ×2 (06:00→14:00)
[2021-05-18] MEDS: InsuLIN REG 1unit/0.01ml Soln (100units/ml) SC SCH ×2 (06:49→12:20)
[2021-05-18] MEDS: GABAPENTIN 300 MG CAP PO SCH ×2 (06:50→14:00)
[2021-05-18] MEDS: ACCU-CHEK COMFORT CURVE STRIP VI SCH ×2 (06:50→11:30)
[2021-05-18] MEDS: CEFTRIAXONE SODIUM 2 GM in D5W 5% 50 ML IV SCH (08:42)
[2021-05-18 08:58] VITALS: BP 102/62
[2021-05-18 13:00] VITALS: BP 97/62
== END 2021-05-18 16:00 | disposition home or self-care (01) | DRG 720 ==
LOC: ER 12:15 → TELE 16:53 → TELE-EAST 21:32 → EAST 05-08 10:31
PROVIDERS: ADMIT Internal Medicine; ATTEND Internal Medicine
PROC: 0T9030Z Drainage of Right Kidney with Drainage Device, Percutaneous Approach (ICD-10-PCS; 2021-05-07)
PROC: BT1DYZZ Fluoroscopy of Right Kidney, Ureter and Bladder using Other Contrast (ICD-10-PCS; 2021-05-07)
PROC: BT41ZZZ Ultrasonography of Right Kidney (ICD-10-PCS; 2021-05-07)
PROC: 0T9030Z Drainage of Right Kidney with Drainage Device, Percutaneous Approach (ICD-10-PCS; 2021-05-11)
PROC: BT1DYZZ Fluoroscopy of Right Kidney, Ureter and Bladder using Other Contrast (ICD-10-PCS; 2021-05-11)
PROC: BT41ZZZ Ultrasonography of Right Kidney (ICD-10-PCS; 2021-05-11)
PROC: 0T9B70Z Drainage of Bladder with Drainage Device, Via Natural or Artificial Opening (ICD-10-PCS; 2021-05-17)
PROC: 0TF3XZZ Fragmentation in Right Kidney Pelvis, External Approach (ICD-10-PCS; 2021-05-17)
PROC: 0T768DZ Dilation of Right Ureter with Intraluminal Device, Via Natural or Artificial Opening Endoscopic (ICD-10-PCS; principal; 2021-05-17 12:57)
DX: A41.51 Sepsis due to Escherichia coli [E. coli] (principal); K76.0 Fatty (change of) liver, not elsewhere classified; E11.65 Type 2 diabetes mellitus with hyperglycemia; E66.01 Morbid (severe) obesity due to excess calories; N13.6 Pyonephrosis; Z68.42 Body mass index [BMI] 45.0-49.9, adult; E87.6 Hypokalemia; J43.9 Emphysema, unspecified; D50.9 Iron deficiency anemia, unspecified; Z83.3 Family history of diabetes mellitus; Z87.442 Personal history of urinary calculi; Z90.710 Acquired absence of both cervix and uterus; Z88.1 Allergy status to other antibiotic agents; Z91.018 Allergy to other foods; Z71.3 Dietary counseling and surveillance; Z20.822 Contact with and (suspected) exposure to COVID-19; E44.1 Mild protein-calorie malnutrition
CPT/HCPCS: 36415; 50432; 71045; 74018; 74176; 74425; 76942; 80048; 80053; 81001; 82962; 83036; 83540; 83550; 83690; 85025; 85610; 85730; 86850; 86900; 86901; 87040; 87081; 87086; 87088; 87186; 87426; 93005; 96365; 96375; 99152; 99153; C1729; G0378; J0330; J0696; J1815; J1885; J2001; J2250; J2405; J2543; J2704; J3490; J7060; Q9967

== ENCOUNTER 2022-12-06 13:03 | Inpatient (IN) | payer MEDICAID ==
[~2022-12-06] VITALS: Ht 162.6 cm; Wt 147.4 kg
[2022-12-06 13:45] LABS: Basophils # (auto) 0 10 ^3/uL (0-0.2); Basophils % (auto) 0.4 % (0.0-2.0); Eosinophils # (auto) 0.1 10 ^3/uL (0-0.8); Eosinophils % (auto) 0.9 % (0.0-7.0); Hematocrit 51.2 % (36.0-46.0); Hemoglobin 16.1 g/dL (12.2-16.2); Lymphocytes # (auto) 2.8 10 ^3/uL (0.4-5.4); Lymphocytes % (auto) 23.3 % (10.0-50.0); Mean Corpuscular Hgb Conc. 31.5 g/dL (32.0-36.0); Mean Corpuscular Volume 85.4 fL (80.0-100.0); Monocytes # (auto) 0.9 10 ^3/uL (0-1.3); Monocytes % (auto) 7.8 % (0.0-12.0); Neutrophils # (auto) 8.2 10 ^3/uL (1.6-8.6); Neutrophils % (auto) 67.6 % (37.0-80.0); Nucleated Red Blood Cells % 0.3 %; Red Blood Cells 5.99 10^6/uL (4.0-5.20); Red Cell Distribution Width 16.4 % (11.8-14.3); White Blood Cell 12.1 10^3/uL (4.4-10.8)
[2022-12-06 13:52] LABS: INR 1.06 (0.9-1.15); Partial Thromboplastin Time 26.2 sec (24.6-33.4)
[2022-12-06 13:58] LABS: Albumin 3.3 g/dL (3.4-5.0); Calcium 9.1 mg/dL (8.5-10.1); Potassium 4.4 mmol/L (3.5-5.1)
[2022-12-06 14:02] LABS: BUN/Creatinine Ratio 19.5; Bilirubin, Total 0.6 mg/dL (0.2-1.0); Total Protein 7.5 g/dL (6.4-8.2)
[2022-12-06] MEDS ORDERED: DexAMETHasone 4 MG TAB PO ONE (14:15)
[2022-12-06] MEDS ORDERED: ASPirin 325 MG TAB PO ONE (14:15)
[2022-12-06] MEDS ORDERED: ALBUTEROL SULF 2.5 MG/0.5ML(0.5%) NEB SOLN NEB ONE (14:15)
[2022-12-06] MEDS ORDERED: IPRATROPIUM BROM 0.5 MG/2.5ML INH SOL NEB ONE (14:15)
[2022-12-06] MEDS ORDERED: DOXYCYCLINE 100 MG TAB/CAP PO ONE (14:30)
[2022-12-06] MEDS ORDERED: IOHEXOL 350 MG/ML 100ML IJ ONE (15:37)
[2022-12-06] MEDS ORDERED: MORPHINE SULFATE INJ 2 MG/ml SYRG IV PRN (17:30)
[2022-12-06] MEDS ORDERED: DOCUSATE SOD 100 MG CAP PO PRN (17:30)
[2022-12-06] MEDS ORDERED: NITROGLYCERIN 0.4 MG SL TAB SL PRN (17:30)
[2022-12-06] MEDS ORDERED: ONDANSETRON HCL 4 MG/2 ML VIAL IV PRN (17:30)
[2022-12-06] MEDS ORDERED: ACETAMINOPHEN 325 MG TAB PO PRN (17:30)
[2022-12-06] MEDS: CEPHALEXIN 250 MG CAP PO SCH (18:36)
[2022-12-07] MEDS: SODIUM CHLOR 0.9% PF (SALINE LOCK) 10ML VIAL/SYR IV SCH ×3 (01:40→15:55)
[2022-12-07] MEDS: HYDROcodone-ACET 5/325MG TAB PO PRN ×4 (01:41→22:46)
[2022-12-07] MEDS: CEPHALEXIN 250 MG CAP PO SCH ×5 (02:43→22:45)
[2022-12-07 05:08] VITALS: BP 134/83
[2022-12-07 08:10] VITALS: BP 143/79
[2022-12-07 09:00] VITALS: BP 143/79
[2022-12-07 13:00] VITALS: BP 142/88
[2022-12-07 17:00] VITALS: BP 112/70
[2022-12-07 21:49] VITALS: BP 127/74
[2022-12-08] MEDS: SODIUM CHLOR 0.9% PF (SALINE LOCK) 10ML VIAL/SYR IV SCH ×2 (04:46→04:55)
[2022-12-08] MEDS: CEPHALEXIN 250 MG CAP PO SCH ×2 (04:55→11:08)
[2022-12-08 05:00] VITALS: BP 127/77
[2022-12-08 08:15] VITALS: BP 123/67
[2022-12-08 08:57] VITALS: BP 123/67
[2022-12-08] MEDS: HYDROcodone-ACET 5/325MG TAB PO PRN (10:13)
[2022-12-08 13:00] VITALS: BP 128/78
[2022-12-08] MEDS ORDERED: DOXY-286 PO (13:11)
[2022-12-08 14:21] VITALS: BP 128/78
[2022-12-09] MEDS ORDERED: ASPirin 81 mg TAB PO SCH (10:00)
== END 2022-12-08 14:50 | disposition home or self-care (01) | DRG 203 ==
LOC: ER 13:03 → TELE 17:27 → TELE-WESTW 12-07 03:35
PROVIDERS: ADMIT Internal Medicine; ATTEND Internal Medicine
DX: R07.9 Chest pain, unspecified (principal); J44.1 Chronic obstructive pulmonary disease with (acute) exacerbation; E11.622 Type 2 diabetes mellitus with other skin ulcer; L97.519 Non-pressure chronic ulcer of other part of right foot with unspecified severity; R09.89 Other specified symptoms and signs involving the circulatory and respiratory systems; E66.01 Morbid (severe) obesity due to excess calories; S43.402A Unspecified sprain of left shoulder joint, initial encounter; Z20.822 Contact with and (suspected) exposure to COVID-19; F17.210 Nicotine dependence, cigarettes, uncomplicated; W01.0XXA Fall on same level from slipping, tripping and stumbling without subsequent striking against object, initial encounter; Z82.49 Family history of ischemic heart disease and other diseases of the circulatory system; Z86.16 Personal history of COVID-19; Z87.442 Personal history of urinary calculi; Z83.3 Family history of diabetes mellitus; Z90.710 Acquired absence of both cervix and uterus; Z88.1 Allergy status to other antibiotic agents; Z68.43 Body mass index [BMI] 50.0-59.9, adult; Z71.3 Dietary counseling and surveillance; Z71.6 Tobacco abuse counseling; Y93.89 Activity, other specified; Y92.512 Supermarket, store or market as the place of occurrence of the external cause; Y99.8 Other external cause status; Z91.018 Allergy to other foods
CPT/HCPCS: 36415; 36600; 70450; 71046; 71275; 73030; 73200; 80053; 82805; 83735; 83880; 84484; 85025; 85379; 85610; 85730; 87426; 93005; 93306; 94640; 97163; 99291; G0378

== ENCOUNTER 2024-03-01 12:40 | Inpatient (IN) | payer MEDICAID ==
[~2024-03-01] VITALS: Ht 160 cm; Wt 125.6 kg
[2024-03-01] VITALS (7 sets, daily range): BP systolic 111–124; BP diastolic 72–81; PULSE 120–127; RESP 12–16; O2SAT 90–100
[~2024-03-01 12:40] MED LIST changes: +DOXY-286 PO
[2024-03-01 13:16] LABS: Basophils # (auto) 0 10 ^3/uL (0-0.2); Basophils % (auto) 0.5 % (0.0-2.0); Eosinophils # (auto) 0.1 10 ^3/uL (0-0.8); Hemoglobin 16.3 g/dL (12.2-16.2); Monocytes # (auto) 0.8 10 ^3/uL (0-1.3); Neutrophils # (auto) 6.1 10 ^3/uL (1.6-8.6); White Blood Cell 9.1 10^3/uL (4.4-10.8)
[2024-03-01 13:17] LABS: Hematocrit 53.1 % (36.0-46.0); Lymphocytes % (auto) 22.2 % (10.0-50.0); Mean Corpuscular Hgb Conc. 30.8 g/dL (32.0-36.0); Mean Corpuscular Volume 94.2 fL (80.0-100.0); Monocytes % (auto) 8.8 % (0.0-12.0); Neutrophils % (auto) 67.5 % (37.0-80.0); Nucleated Red Blood Cells % 0.2 %; Red Blood Cells 5.63 10^6/uL (4.0-5.20)
[2024-03-01 13:42] LABS: Alanine Aminotransferase 25 U/L (7-40); Albumin 3.7 g/dL (3.2-4.8); Alkaline Phosphatase 89 U/L (46-116); Anion Gap 8 (5-15); Aspartate Aminotransferase 31 U/L (13-40); Bilirubin, Total 0.5 mg/dL (0.2-1.0); Blood Urea Nitrogen 42 mg/dL (9-23); Calcium 9.1 mg/dL (8.5-10.1); Carbon Dioxide 25 mmol/L (20-30); Chloride 103 mmol/L (98-107); Glucose 100 mg/dL (74-106); Sodium 136 mmol/L (136-145); Total Protein 6.3 g/dL (5.7-8.2)
[2024-03-01 13:58] LABS: Lactic Acid w/Reflex 3.7 mmol/L (0.4-2.0)
[2024-03-01] MEDS: SODIUM CHLORIDE 0.9% 3,950 ML IV ONE (14:08)
[2024-03-01] MEDS: cefTRIAXone 1GM/50ML D5W 50 ML IV ONE (14:08)
[2024-03-01] MEDS: CALCIUM GLUC 1,000mg/50ml-NS 50 ML IV ONE (14:08)
[2024-03-01 14:12] LABS: COVID19 ANTIGEN SOFIA FIA NEGATIVE (NEGATIVE)
[2024-03-01] MEDS: VANCOMYCIN 1GM/200ML 200 ML IV ONE (14:26)
[2024-03-01] MEDS: SODIUM BICARB 8.4% 50Meq/50ml SYR Vial IV ONE (14:26)
[2024-03-01] MEDS ORDERED: DEXTROSE (50%) 50ML SYRG IV PRN (14:45)
[2024-03-01] MEDS ORDERED: LORazepam 2MG/ML-1ML VIAL IV PRN (16:15)
[2024-03-01] MEDS ORDERED: ENOXAPARIN SOD 30 MG/0.3 ML SYRINGE SC SCH (16:15)
[2024-03-01 16:17] LABS: Magnesium 1.9 mg/dL (1.6-2.6)
[2024-03-01 16:19] LABS: Phosphorus 6.6 mg/dL (2.4-5.1)
[2024-03-01 16:25] LABS: Potassium 6.7 mmol/L (3.5-5.1)
[2024-03-01] MEDS ORDERED: LEVALBUTEROL HCL 1.25 MG/3 ML NEB NEB SCH (16:30)
[2024-03-01 17:06] LABS: Base Excess -3.9 mmol/L (-2.0-2.0)
[2024-03-01] MEDS: CLINDAMYCIN 600MG IV 50 ML IV ONE (17:54)
[2024-03-01] MEDS: NYSTATIN TOPICAL POWDER 15GM TOP ONE (17:54)
[2024-03-01] MEDS: FUROSEMIDE 40 MG/4 ML VIAL IV ONE (17:55)
[2024-03-01] MEDS: FUROSEMIDE 20 MG/2 ML VIAL IV SCH (18:00)
[2024-03-01] MEDS: NYSTATIN-TRIAMCINOLONE TOPICAL CRE 15GM TOP ONE (18:18)
[2024-03-01] MEDS: ACCU-CHEK COMFORT CURVE STRIP VI SCH (18:19)
[2024-03-01] MEDS: InsuLIN REG 1unit/0.01ml Soln (100units/ml) SC SCH (18:39)
[2024-03-01 18:43] LABS: Urine Bacteria MOD /hpf (None Seen); Urine Blood 3+ /uL (Negative); Urine Clarity CLOUDY (Clear); Urine Color Red (Yellow); Urine Mucus FEW (None Seen); Urine Protein, UAD 2+ (Negative); Urine Urobilinogen Normal (Negative); Urine WBC 764 /hpf (0 - 5); Urine WBC Clumps PRESENT /hpf (None Seen); Urine pH 5.5 (5.0-9.0)
[2024-03-01] MEDS: LEVALBUTEROL HCL 1.25 MG/3 ML NEB NEB SCH (18:45)
[2024-03-01] MEDS: IPRATROPIUM BROM 0.5 MG/2.5ML INH SOL NEB SCH (18:45)
[2024-03-01] MEDS: IPRATROPIUM BROM 0.5 MG/2.5ML INH SOL NEB ONE (18:45)
[2024-03-01 18:46] LABS: Urine Specific Gravity 1.025 (1.001-1.035)
[2024-03-01] MEDS: levoFLOXacin 500MG 100 ML IV ONE (19:10)
[2024-03-01] MEDS: FUROSEMIDE 100 MG/10ML VIAL IV ONE (20:27)
[2024-03-01] MEDS: SODIUM ZIRCONIUM CYCL 10 GM PAK PO ONE ×2 (20:27→23:43)
[2024-03-01 20:32] LABS: Base Excess -5.1 mmol/L (-2.0-2.0)
[2024-03-01] MEDS: METOPROLOL TARTRATE 25 MG TAB PO SCH (22:00)
[2024-03-01] MEDS: ATORVASTATIN 20 MG TAB PO SCH (22:26)
[2024-03-01 22:52] LABS: Base Excess -5.6 mmol/L (-2.0-2.0)
[2024-03-01] MEDS: CLINDAMYCIN 600MG IV 50 ML IV SCH (23:34)
[2024-03-02] VITALS (55 sets, daily range): BP systolic 86–175; BP diastolic 44–114; PULSE 123–149; RESP 16–41; TEMP 97.5–98.2; O2SAT 91–100
[2024-03-02] MEDS: PHENYLEPHRINE IV 250 ML IV SCH (02:54)
[2024-03-02 05:12] LABS: Basophils # (auto) 0.1 10 ^3/uL (0-0.2); Eosinophils # (auto) 0.1 10 ^3/uL (0-0.8); Hemoglobin 15.9 g/dL (12.2-16.2); Mean Corpuscular Volume 92.8 fL (80.0-100.0)
[2024-03-02 05:15] LABS: Basophils % (auto) 0.5 % (0.0-2.0); Hematocrit 51.1 % (36.0-46.0); Lymphocytes # (auto) 2.5 10 ^3/uL (0.4-5.4); Lymphocytes % (auto) 20.6 % (10.0-50.0); Mean Corpuscular Hemoglobin 28.9 pg (28.0-32.0); Mean Corpuscular Hgb Conc. 31.1 g/dL (32.0-36.0); Monocytes # (auto) 1.5 10 ^3/uL (0-1.3); Monocytes % (auto) 12.4 % (0.0-12.0); Neutrophils % (auto) 65.5 % (37.0-80.0); Nucleated Red Blood Cells % 0.3 %; Red Blood Cells 5.51 10^6/uL (4.0-5.20); Red Cell Distribution Width 16.7 % (11.8-14.3); White Blood Cell 12.2 10^3/uL (4.4-10.8)
[2024-03-02 05:43] LABS: Alanine Aminotransferase 13 U/L (7-40); Albumin 3.6 g/dL (3.2-4.8); Alkaline Phosphatase 81 U/L (46-116); Anion Gap 9 (5-15); Aspartate Aminotransferase 27 U/L (13-40); BUN/Creatinine Ratio 11.3 (10.0-20.0); Bilirubin, Total 0.4 mg/dL (0.2-1.0); Calcium 8.5 mg/dL (8.7-10.4); Carbon Dioxide 26 mmol/L (20-30); Chloride 103 mmol/L (98-107); Glucose 79 mg/dL (74-106); Sodium 138 mmol/L (136-145); Total Protein 6.9 g/dL (5.7-8.2)
[2024-03-02 05:51] LABS: Blood Urea Nitrogen 32 mg/dL (9-23)
[2024-03-02 05:52] LABS: Potassium 6.5 mmol/L (3.5-5.1)
[2024-03-02 06:03] LABS: LDL Cholesterol 74 mg/dL (< 100); Triglycerides 105 mg/dL (< 150)
[2024-03-02 06:05] LABS: Cholesterol 108 mg/dL (< 200); HDL Cholesterol 21 mg/dL (40-59)
[2024-03-02] MEDS: ALBUTEROL SULF 2.5 MG/0.5ML(0.5%) NEB SOLN NEB ONE ×3 (06:15→18:00)
[2024-03-02 06:42] LABS: Base Excess -5.2 mmol/L (-2.0-2.0)
[2024-03-02] MEDS: DEXTROSE (50%) 50ML SYRG IV ONE ×2 (06:45→11:17)
[2024-03-02] MEDS: SODIUM BICARB 8.4% 50Meq/50ml SYR INJ IV ONE ×3 (06:46→20:32)
[2024-03-02] MEDS: InsuLIN REG 1unit/0.01ml Soln (100units/ml) IV ONE ×2 (06:46→09:30)
[2024-03-02] MEDS: CALCIUM GLUC 1,000mg/50ml-NS 50 ML IV ONE ×2 (07:01→20:25)
[2024-03-02] MEDS: SODIUM ZIRCONIUM CYCL 10 GM PAK PO ONE ×2 (07:13→09:53)
[2024-03-02] MEDS ORDERED: levoFLOXacin 500MG 100 ML IV SCH (10:00)
[2024-03-02] MEDS ORDERED: ENOXAPARIN SOD 150 MG/1 ML SYRINGE SC SCH (10:00)
[2024-03-02] MEDS ORDERED: levoFLOXacin 250MG 50 ML IV SCH (10:00)
[2024-03-02] MEDS ORDERED: SEMA4INJ SC (11:15)
[2024-03-02] MEDS ORDERED: METF-929 PO (11:15)
[2024-03-02] MEDS: MEROPENEM 1GM IVPB 50 ML IV ONE (11:17)
[2024-03-02] MEDS ORDERED: HYDR-4902 PO (11:19)
[2024-03-02] MEDS ORDERED: CITA10TA5 PO (11:19)
[2024-03-02] MEDS ORDERED: FURO20TA3 PO (11:19)
[2024-03-02] MEDS ORDERED: IBUP-1455 PO (11:19)
[2024-03-02 11:21] LABS: Base Excess -4.8 mmol/L (-2.0-2.0)
[2024-03-02] MEDS: FUROSEMIDE 20 MG/2 ML VIAL IV ONE (11:22)
[2024-03-02] MEDS ORDERED: VARE1TAB12 (11:22)
[2024-03-02] MEDS: PROPOFOL 100 ML IV SCH (12:45)
[2024-03-02] MEDS: ETOMIDATE (2MG/ML) 20ML VIAL IV ONE ×2 (12:50→12:52)
[2024-03-02] MEDS: ROCURONIUM 10MG/ML 10ML VIAL IV ONE ×2 (12:51→12:52)
[2024-03-02] MEDS: MIDAZOLAM DRIP 50 mg/50mL 50 ML IV SCH ×2 (12:55→13:22)
[2024-03-02] MEDS ORDERED: DEXTROSE (50%) 50ML SYRG IV PRN (13:00)
[2024-03-02] MEDS: NOREPINEPHRINE 8 MG/250ML KIT 250 ML IV SCH (13:00)
[2024-03-02] MEDS: PANTOPRAZOLE 40 MG/10 ML VIAL INJ IV ONE (13:27)
[2024-03-02 13:55] LABS: Base Excess -2.8 mmol/L (-2.0-2.0)
[2024-03-02] MEDS ORDERED: MEROPENEM 1GM IVPB 50 ML IV SCH (14:00)
[2024-03-02] MEDS: ENOXAPARIN SOD 30 MG/0.3 ML SYRINGE SC SCH (14:00)
[2024-03-02 15:22] LABS: INR 1.18 (0.9-1.15); Partial Thromboplastin Time 26.8 SEC (24.5-34.5); Prothrombin Time 12.3 sec (9.3-11.8)
[2024-03-02] MEDS: InsuLIN REG 1unit/0.01ml Soln (100units/ml) SC SCH (18:00)
[2024-03-02] MEDS: ACCU-CHEK COMFORT CURVE STRIP VI SCH (18:00)
[2024-03-02 18:47] LABS: Sodium Urine 105 mmol/L (40-220)
[2024-03-02 18:52] LABS: Protein, Urine 128.2 mg/dL (0.0-11.9)
[2024-03-02 18:53] LABS: Amphetamine Screen, Urine Neg (NEGATIVE)
[2024-03-02 18:54] LABS: Barbiturate Scree,Urine Neg (NEGATIVE); Benzodiazephine Screen, Urine Pos (NEGATIVE); Cannabinoid Screen, Urine Neg (NEGATIVE); Cocaine Screen, Urine Neg (NEGATIVE); Creatinine, Urine 44.35 mg/dL (30.0-125.0); Opiate Scree,Urine Neg (NEGATIVE); Phencyclidine Screen, Urine Neg (NEGATIVE)
[2024-03-02 19:52] LABS: Basophils # (auto) 0 10 ^3/uL (0-0.2); Basophils % (auto) 0.4 % (0.0-2.0); Eosinophils # (auto) 0.1 10 ^3/uL (0-0.8); Eosinophils % (auto) 0.7 % (0.0-7.0); Hematocrit 50.4 % (36.0-46.0); Hemoglobin 15.8 g/dL (12.2-16.2); Lymphocytes % (auto) 25.5 % (10.0-50.0); Mean Corpuscular Hemoglobin 28.5 pg (28.0-32.0); Mean Corpuscular Hgb Conc. 31.4 g/dL (32.0-36.0); Mean Corpuscular Volume 90.8 fL (80.0-100.0); Monocytes # (auto) 1.3 10 ^3/uL (0-1.3); Monocytes % (auto) 10.9 % (0.0-12.0); Neutrophils # (auto) 7.4 10 ^3/uL (1.6-8.6); Neutrophils % (auto) 62.5 % (37.0-80.0); Nucleated Red Blood Cells % 0.1 %; Red Blood Cells 5.55 10^6/uL (4.0-5.20); Red Cell Distribution Width 16.8 % (11.8-14.3); White Blood Cell 11.8 10^3/uL (4.4-10.8)
[2024-03-02 20:13] LABS: Alanine Aminotransferase 14 U/L (7-40); Albumin 3.4 g/dL (3.2-4.8); Alkaline Phosphatase 79 U/L (46-116); Anion Gap 9 (5-15); Aspartate Aminotransferase 27 U/L (13-40); BUN/Creatinine Ratio 13.7 (10.0-20.0); Bilirubin, Total 0.4 mg/dL (0.2-1.0); Blood Urea Nitrogen 39 mg/dL (9-23); Calcium 8.1 mg/dL (8.5-10.1); Carbon Dioxide 27 mmol/L (20-30); Chloride 104 mmol/L (98-107); Glucose 100 mg/dL (74-106); Potassium 5.4 mmol/L (3.5-5.1); Sodium 140 mmol/L (136-145); Total Protein 6.5 g/dL (5.7-8.2)
[2024-03-02 20:28] LABS: Magnesium 1.8 mg/dL (1.6-2.6)
[2024-03-02] MEDS: FUROSEMIDE INJECTION 100 MG in SODIUM CHL 0.9% 100 ML IV SCH (20:38)
[2024-03-02] MEDS: LINEZOLID 600MG/300ML 300 ML IV SCH (20:52)
[2024-03-02] MEDS: SODIUM CHLOR 0.9% PF (SALINE LOCK) 10ML VIAL/SYR IV SCH (21:03)
[2024-03-02] MEDS: MEROPENEM 1GM IVPB 50 ML IV SCH (23:16)
[2024-03-03] VITALS (110 sets, daily range): BP systolic 76–173; BP diastolic 36–112; PULSE 136–149; RESP 13–37; TEMP 96.8–98.8; O2SAT 91–99
[2024-03-03 00:10] LABS: Magnesium 1.7 mg/dL (1.6-2.6)
[2024-03-03] MEDS: AMIODARONE BOLUS KIT 100 ML IV ONE (01:19)
[2024-03-03] MEDS: AMIODARONE 450mg/250ml AE 250 ML IV SCH ×2 (01:19→07:05)
[2024-03-03 04:12] LABS: Basophils # (auto) 0 10 ^3/uL (0-0.2); Basophils % (auto) 0.4 % (0.0-2.0); Eosinophils # (auto) 0.1 10 ^3/uL (0-0.8); Eosinophils % (auto) 1.1 % (0.0-7.0); Hematocrit 48.5 % (36.0-46.0); Hemoglobin 15.9 g/dL (12.2-16.2); Lymphocytes # (auto) 2.2 10 ^3/uL (0.4-5.4); Lymphocytes % (auto) 22.3 % (10.0-50.0); Mean Corpuscular Hemoglobin 29.7 pg (28.0-32.0); Mean Corpuscular Hgb Conc. 32.8 g/dL (32.0-36.0); Mean Corpuscular Volume 90.7 fL (80.0-100.0); Monocytes # (auto) 1.1 10 ^3/uL (0-1.3); Monocytes % (auto) 11.3 % (0.0-12.0); Neutrophils # (auto) 6.4 10 ^3/uL (1.6-8.6); Neutrophils % (auto) 64.9 % (37.0-80.0); Nucleated Red Blood Cells % 0.1 %; Red Blood Cells 5.35 10^6/uL (4.0-5.20); Red Cell Distribution Width 16.6 % (11.8-14.3); White Blood Cell 9.9 10^3/uL (4.4-10.8)
[2024-03-03 04:25] LABS: Alanine Aminotransferase 10 U/L (7-40); Albumin 2.9 g/dL (3.2-4.8); Alkaline Phosphatase 71 U/L (46-116); Anion Gap 10 (5-15); Aspartate Aminotransferase 24 U/L (13-40); BUN/Creatinine Ratio 12.3 (10.0-20.0); Blood Urea Nitrogen 32 mg/dL (9-23); Calcium 8.1 mg/dL (8.7-10.4); Carbon Dioxide 24 mmol/L (20-30); Chloride 103 mmol/L (98-107); Glucose 143 mg/dL (74-106); Magnesium 1.7 mg/dL (1.6-2.6); Potassium 4.8 mmol/L (3.5-5.1); Sodium 137 mmol/L (136-145)
[2024-03-03 04:26] LABS: Bilirubin, Total 0.4 mg/dL (0.2-1.0); Total Protein 5.8 g/dL (5.7-8.2)
[2024-03-03 04:41] LABS: Lactic Acid w/Reflex 2.6 mmol/L (0.4-2.0)
[2024-03-03 06:55] LABS: Base Excess -1.2 mmol/L (-2.0-2.0)
[2024-03-03] MEDS: MAGNESIUM SULFATE 1GM/100ML 100 ML IV ONE (07:50)
[2024-03-03] MEDS: PANTOPRAZOLE 40 MG/10 ML VIAL INJ IV SCH (09:20)
[2024-03-03] MEDS: CLOTRIMAZOLE 1 % CREAM 15GM TOP SCH (10:00)
[2024-03-03] MEDS: ADENOSINE 6 MG/2 ML INJ IV ONE ×4 (14:28→15:01)
[2024-03-03] MEDS ORDERED: ADENOSINE 6 MG/2 ML INJ IV ONE (15:04)
[2024-03-04] VITALS (115 sets, daily range): BP systolic 84–148; BP diastolic 29–84; PULSE 84–139; RESP 9–29; TEMP 97.3–99.7; O2SAT 90–100
[2024-03-04 03:52] LABS: Basophils # (auto) 0.1 10 ^3/uL (0-0.2); Basophils % (auto) 0.8 % (0.0-2.0); Eosinophils # (auto) 0.1 10 ^3/uL (0-0.8); Eosinophils % (auto) 1.3 % (0.0-7.0); Hematocrit 47.9 % (36.0-46.0); Hemoglobin 15.5 g/dL (12.2-16.2); Lymphocytes # (auto) 1.7 10 ^3/uL (0.4-5.4); Lymphocytes % (auto) 19.9 % (10.0-50.0); Mean Corpuscular Hemoglobin 28.7 pg (28.0-32.0); Mean Corpuscular Hgb Conc. 32.3 g/dL (32.0-36.0); Mean Corpuscular Volume 88.7 fL (80.0-100.0); Monocytes # (auto) 0.9 10 ^3/uL (0-1.3); Monocytes % (auto) 10.8 % (0.0-12.0); Neutrophils # (auto) 5.7 10 ^3/uL (1.6-8.6); Neutrophils % (auto) 67.2 % (37.0-80.0); Nucleated Red Blood Cells % 0.2 %; Red Blood Cells 5.39 10^6/uL (4.0-5.20); Red Cell Distribution Width 16.5 % (11.8-14.3); White Blood Cell 8.5 10^3/uL (4.4-10.8)
[2024-03-04 04:11] LABS: Alanine Aminotransferase 10 U/L (7-40); Alkaline Phosphatase 73 U/L (46-116); Anion Gap 7 (5-15); Aspartate Aminotransferase 21 U/L (13-40); BUN/Creatinine Ratio 17.6 (10.0-20.0); Bilirubin, Total 0.8 mg/dL (0.2-1.0); Blood Urea Nitrogen 40 mg/dL (9-23); Calcium 8.3 mg/dL (8.7-10.4); Carbon Dioxide 29 mmol/L (20-30); Chloride 101 mmol/L (98-107); Glucose 120 mg/dL (74-106); Magnesium 1.6 mg/dL (1.6-2.6); Potassium 4.6 mmol/L (3.5-5.1); Sodium 137 mmol/L (136-145)
[2024-03-04 07:03] LABS: Complement C3 104 mg/dL (82-167)
[2024-03-04 08:24] LABS: Base Excess 3.6 mmol/L (-2.0-2.0)
[2024-03-04] MEDS ORDERED: ENOXAPARIN SOD 100 MG/1 ML SYRINGE SC SCH (10:00)
[2024-03-04] MEDS: fentaNYL Drip 2500mCg/250mlNS 250 ML IV SCH (10:12)
[2024-03-04] MEDS: MUPIROCIN 2% OINT 15gm or 22gm FOR MRSA NARES EACHNOSTRI SCH (12:39)
[2024-03-04] MEDS: ENOXAPARIN SOD 150 MG/1 ML SYRINGE SC SCH (22:00)
[2024-03-05] VITALS (117 sets, daily range): BP systolic 92–126; BP diastolic 48–77; PULSE 88–126; RESP 10–26; TEMP 99.3–100; O2SAT 91–98
[2024-03-05 03:44] LABS: Basophils # (auto) 0 10 ^3/uL (0-0.2); Basophils % (auto) 0.6 % (0.0-2.0); Eosinophils # (auto) 0.1 10 ^3/uL (0-0.8); Eosinophils % (auto) 0.9 % (0.0-7.0); Hemoglobin 15.6 g/dL (12.2-16.2); Lymphocytes # (auto) 1.4 10 ^3/uL (0.4-5.4); Lymphocytes % (auto) 16.4 % (10.0-50.0); Mean Corpuscular Hemoglobin 28.8 pg (28.0-32.0); Mean Corpuscular Hgb Conc. 32.5 g/dL (32.0-36.0); Mean Corpuscular Volume 88.8 fL (80.0-100.0); Monocytes # (auto) 0.9 10 ^3/uL (0-1.3); Monocytes % (auto) 10.6 % (0.0-12.0); Neutrophils # (auto) 6.1 10 ^3/uL (1.6-8.6); Neutrophils % (auto) 71.5 % (37.0-80.0); Nucleated Red Blood Cells % 0.1 %; Red Blood Cells 5.41 10^6/uL (4.0-5.20); Red Cell Distribution Width 16.4 % (11.8-14.3); White Blood Cell 8.6 10^3/uL (4.4-10.8)
[2024-03-05 04:02] LABS: Alkaline Phosphatase 75 U/L (46-116); Anion Gap 2 (5-15); Aspartate Aminotransferase 26 U/L (13-40); BUN/Creatinine Ratio 23.5 (10.0-20.0); Blood Urea Nitrogen 32 mg/dL (9-23); Calcium 8.6 mg/dL (8.7-10.4); Carbon Dioxide 36 mmol/L (20-30); Chloride 100 mmol/L (98-107); Glucose 109 mg/dL (74-106); Magnesium 1.3 mg/dL (1.6-2.6); Potassium 3.9 mmol/L (3.5-5.1); Sodium 138 mmol/L (136-145)
[2024-03-05 04:03] LABS: Bilirubin, Total 1.6 mg/dL (0.2-1.0); Total Protein 6.1 g/dL (5.7-8.2)
[2024-03-05 05:23] LABS: Alanine Aminotransferase < 9 U/L (7-40)
[2024-03-05 06:58] LABS: Base Excess 8.5 mmol/L (-2.0-2.0)
[2024-03-05 10:06] LABS: Anti-Centromere B Antibody <0.2 AI (0.0-0.9); Anti-Jo-1 Antibody <0.2 AI (0.0-0.9); Anti-dsDNA Antibody <1 IU/mL (0-9); Antichromatin Antibody <0.2 AI (0.0-0.9); Antiscleroderma-70 Antibody <0.2 AI (0.0-0.9); RNP Antibody <0.2 AI (0.0-0.9); Sjogren's Anti-SS-A Antibody <0.2 AI (0.0-0.9); Sjogren's Anti-SS-B Antibody <0.2 AI (0.0-0.9); Smith Antibody <0.2 AI (0.0-0.9)
[2024-03-05] MEDS: MAGNESIUM SULFATE 1GM/100ML 100 ML IV ONE ×2 (11:00→11:12)
[2024-03-05] MEDS: MEROPENEM 1GM IVPB 50 ML IV SCH (15:30)
[2024-03-06] VITALS (110 sets, daily range): BP systolic 87–142; BP diastolic 48–85; PULSE 81–114; RESP 9–29; TEMP 99.3–100.2; O2SAT 88–100
[2024-03-06 04:16] LABS: Basophils # (auto) 0 10 ^3/uL (0-0.2); Basophils % (auto) 0.4 % (0.0-2.0); Eosinophils # (auto) 0.1 10 ^3/uL (0-0.8); Hematocrit 46.6 % (36.0-46.0); Hemoglobin 15.2 g/dL (12.2-16.2); Lymphocytes # (auto) 1.3 10 ^3/uL (0.4-5.4); Mean Corpuscular Hemoglobin 28.9 pg (28.0-32.0); Mean Corpuscular Hgb Conc. 32.6 g/dL (32.0-36.0); Mean Corpuscular Volume 88.7 fL (80.0-100.0); Monocytes # (auto) 0.9 10 ^3/uL (0-1.3); Monocytes % (auto) 9.5 % (0.0-12.0); Neutrophils % (auto) 75.1 % (37.0-80.0); Nucleated Red Blood Cells % 0.1 %; Red Blood Cells 5.26 10^6/uL (4.0-5.20); White Blood Cell 9.3 10^3/uL (4.4-10.8)
[2024-03-06 04:38] LABS: Alkaline Phosphatase 76 U/L (46-116); Anion Gap 5 (5-15); Aspartate Aminotransferase 30 U/L (13-40); BUN/Creatinine Ratio 27.7 (10.0-20.0); Blood Urea Nitrogen 23 mg/dL (9-23); Calcium 8.5 mg/dL (8.7-10.4); Carbon Dioxide 39 mmol/L (20-30); Chloride 96 mmol/L (98-107); Glucose 128 mg/dL (74-106); Magnesium 1.2 mg/dL (1.6-2.6); Potassium 3.2 mmol/L (3.5-5.1); Sodium 140 mmol/L (136-145)
[2024-03-06 04:39] LABS: Bilirubin, Total 1.9 mg/dL (0.2-1.0); Total Protein 6.2 g/dL (5.7-8.2)
[2024-03-06 04:55] LABS: Alanine Aminotransferase < 9 U/L (7-40)
[2024-03-06] MEDS: Glucerna 1.2 Cal 1Liter BOTTLE GT SCH (05:18)
[2024-03-06] MEDS: MAGNESIUM SULFATE 1GM/100ML 100 ML IV SCH (06:38)
[2024-03-06 07:12] LABS: Base Excess 9.7 mmol/L (-2.0-2.0)
[2024-03-06 09:06] LABS: Antiglomerular BM Antibody <0.2 units (0.0-0.9); Antimyeloperoxidase (MPO) Ab <0.2 units (0.0-0.9); Antiproteinase 3 (PR-3) Ab 0.7 units (0.0-0.9)
[2024-03-06] MEDS: POTASSIUM CHL 20MEQ/100ML 100 ML IV SCH (09:48)
[2024-03-06] MEDS: POTASSIUM CHL 20MEQ/100ML 200 ML IV ONE (12:47)
[2024-03-06] MEDS: MAGNESIUM SULFATE 1GM/100ML 100 ML IV ONE ×2 (12:47)
[2024-03-06] MEDS: FUROSEMIDE INJECTION 100 MG in SODIUM CHL 0.9% 100 ML IV SCH (15:44)
[2024-03-07] VITALS (105 sets, daily range): BP systolic 92–170; BP diastolic 43–151; PULSE 74–101; RESP 10–41; TEMP 98.2–99.9; O2SAT 92–100
[2024-03-07 04:14] LABS: Chloride 98 mmol/L (98-107); Sodium 140 mmol/L (136-145)
[2024-03-07 04:15] LABS: Calcium 8.6 mg/dL (8.7-10.4)
[2024-03-07 04:20] LABS: BUN/Creatinine Ratio 27.7 (10.0-20.0); Blood Urea Nitrogen 18 mg/dL (9-23); Glucose 87 mg/dL (74-106)
[2024-03-07 04:21] LABS: Magnesium 1.2 mg/dL (1.6-2.6)
[2024-03-07 04:57] LABS: Anion Gap 1.99999 (5-15)
[2024-03-07 04:58] LABS: Carbon Dioxide > 40 mmol/L (20-30)
[2024-03-07] MEDS: MAGNESIUM SULFATE 1GM/100ML 100 ML IV ONE ×2 (05:46→07:30)
[2024-03-07] MEDS: MAGNESIUM SULFATE 1GM/100ML 100 ML IV SCH (05:47)
[2024-03-07 07:25] LABS: Base Excess 12.7 mmol/L (-2.0-2.0)
[2024-03-07] MEDS: POTASSIUM CHL 20MEQ/100ML 100 ML IV SCH (08:55)
[2024-03-07] MEDS: acetaZOLAMIDE SODIUM 500 MG VL IV ONE (11:28)
[2024-03-07] MEDS: AMIODARONE HCL 200 MG TAB ONE ×2 (12:20→21:08)
[2024-03-07] MEDS: AMIODARONE HCL 200 MG TAB PO SCH (12:22)
[2024-03-07] MEDS: methylPREDNISolone SOD SUCC 125 MG/2 ML VL ONE (14:55)
[2024-03-07] MEDS: methylPREDNISolone SOD SUCC 125 MG/2 ML VL IV ONE (14:58)
[2024-03-07] MEDS: CLINDAMYCIN 300MG IV 50 ML IV ONE ×3 (15:44→20:48)
[2024-03-07] MEDS: FLUCONAZOLE 200MG/100ML 100 ML IV ONE ×2 (16:45→16:46)
[2024-03-07] MEDS: CLINDAMYCIN 300MG IV 50 ML IV SCH (20:50)
[2024-03-07] MEDS: methylPREDNISolone SOD SUCC 40 MG/ML VL ONE (21:04)
[2024-03-07] MEDS: ENOXAPARIN SOD 100 MG/1 ML SYRINGE SC ONE (21:12)
[2024-03-07] MEDS: methylPREDNISolone SOD SUCC 40 MG/ML VL IV SCH (21:38)
[2024-03-07] MEDS: LACTULOSE 20Gm/30ML SOLN PO SCH (21:38)
[2024-03-07] MEDS: ENOXAPARIN SOD 100 MG/1 ML SYRINGE SC SCH (21:38)
[2024-03-08] VITALS (107 sets, daily range): BP systolic 86–127; BP diastolic 36–71; PULSE 76–107; RESP 10–22; TEMP 98.4–99.3; O2SAT 90–98
[2024-03-08] MEDS: CLINDAMYCIN 300MG IV 50 ML IV ONE ×2 (04:16→13:38)
[2024-03-08 04:17] LABS: Basophils # (auto) 0 10 ^3/uL (0-0.2); Basophils % (auto) 0.1 % (0.0-2.0); Eosinophils # (auto) 0 10 ^3/uL (0-0.8); Eosinophils % (auto) 0.1 % (0.0-7.0); Hematocrit 46.9 % (36.0-46.0); Lymphocytes % (auto) 11.8 % (10.0-50.0); Mean Corpuscular Hemoglobin 28.9 pg (28.0-32.0); Mean Corpuscular Volume 90.4 fL (80.0-100.0); Monocytes # (auto) 0.2 10 ^3/uL (0-1.3); Monocytes % (auto) 2.1 % (0.0-12.0); Neutrophils # (auto) 7.4 10 ^3/uL (1.6-8.6); Neutrophils % (auto) 85.9 % (37.0-80.0); Nucleated Red Blood Cells % 0.1 %; Red Cell Distribution Width 16.2 % (11.8-14.3); White Blood Cell 8.6 10^3/uL (4.4-10.8)
[2024-03-08 04:34] LABS: Albumin 3.1 g/dL (3.2-4.8); Alkaline Phosphatase 74 U/L (46-116); Anion Gap 10 (5-15); Aspartate Aminotransferase 39 U/L (13-40); BUN/Creatinine Ratio 28.4 (10.0-20.0); Blood Urea Nitrogen 19 mg/dL (9-23); Calcium 8.6 mg/dL (8.5-10.1); Carbon Dioxide 33 mmol/L (20-30); Chloride 99 mmol/L (98-107); Glucose 144 mg/dL (74-106); Sodium 142 mmol/L (136-145)
[2024-03-08 04:35] LABS: Total Protein 6.1 g/dL (5.7-8.2)
[2024-03-08 04:36] LABS: Alanine Aminotransferase < 9 U/L (7-40)
[2024-03-08] MEDS: methylPREDNISolone SOD SUCC 40 MG/ML VL ONE ×2 (05:14→13:38)
[2024-03-08 07:37] LABS: Base Excess 9.2 mmol/L (-2.0-2.0)
[2024-03-08] MEDS: POTASSIUM CHL 20MEQ/100ML 200 ML IV ONE (08:32)
[2024-03-08 08:39] LABS: COVID19 ANTIGEN SOFIA FIA NEGATIVE (NEGATIVE)
[2024-03-08] MEDS: POTASSIUM CHL 20MEQ/100ML 100 ML IV SCH (08:39)
[2024-03-08 08:40] LABS: Rapid Influenza A Negative (Negative); Rapid Influenza B Negative (Negative)
[2024-03-08] MEDS: AMIODARONE HCL 200 MG TAB ONE (09:11)
[2024-03-08] MEDS: LACTULOSE 20Gm/30ML SOLN ONE (09:11)
[2024-03-08] MEDS: FLUCONAZOLE 200MG/100ML 100 ML IV ONE (09:12)
[2024-03-08] MEDS: FLUCONAZOLE 200MG/100ML 100 ML IV SCH (09:27)
[2024-03-08] MEDS: ENOXAPARIN SOD 100 MG/1 ML SYRINGE SC ONE (09:34)
[2024-03-08] MEDS: FUROSEMIDE 20 MG/2 ML VIAL ONE (12:05)
[2024-03-08] MEDS: FUROSEMIDE 20 MG/2 ML VIAL IV ONE (12:06)
[2024-03-08] MEDS: METOCLOPRAMIDE HCL 5MG/ml INJ 2ml VIAL IV ONE (14:55)
[2024-03-08] MEDS: NYSTATIN TOPICAL POWDER 15GM TOP ONE (15:04)
[2024-03-08] MEDS: acetaZOLAMIDE SODIUM 500 MG VL IV ONE (16:30)
[2024-03-08 17:59] LABS: INR 1.12 (0.9-1.15); Prothrombin Time 11.7 sec (9.3-11.8)
[2024-03-08] MEDS: METOCLOPRAMIDE HCL 5MG/ml INJ 2ml VIAL IV SCH (22:43)
[2024-03-08] MEDS: FUROSEMIDE 20 MG/2 ML VIAL IV SCH (22:43)
[2024-03-08] MEDS: NYSTATIN TOPICAL POWDER 15GM TOP SCH (22:44)
[2024-03-09] VITALS (105 sets, daily range): BP systolic 92–152; BP diastolic 41–97; PULSE 67–92; RESP 12–30; TEMP 96.3–99.1; O2SAT 91–96
[2024-03-09] MEDS: POTASSIUM CHL 20MEQ/100ML 100 ML IV SCH ×2 (01:56→12:45)
[2024-03-09 04:32] LABS: Basophils # (auto) 0 10 ^3/uL (0-0.2); Eosinophils # (auto) 0 10 ^3/uL (0-0.8); Hematocrit 46.9 % (36.0-46.0); Hemoglobin 15.1 g/dL (12.2-16.2); Lymphocytes # (auto) 1.3 10 ^3/uL (0.4-5.4); Lymphocytes % (auto) 16.9 % (10.0-50.0); Mean Corpuscular Hemoglobin 28.9 pg (28.0-32.0); Mean Corpuscular Hgb Conc. 32.1 g/dL (32.0-36.0); Monocytes # (auto) 0.7 10 ^3/uL (0-1.3); Monocytes % (auto) 8.4 % (0.0-12.0); Neutrophils % (auto) 74.7 % (37.0-80.0); Nucleated Red Blood Cells % 0.1 %
[2024-03-09 04:46] LABS: Alanine Aminotransferase 13 U/L (7-40); Alkaline Phosphatase 73 U/L (46-116); Anion Gap 4 (5-15); BUN/Creatinine Ratio 33.8 (10.0-20.0); Blood Urea Nitrogen 23 mg/dL (9-23); Calcium 9.4 mg/dL (8.7-10.4); Carbon Dioxide 36 mmol/L (20-30); Chloride 103 mmol/L (98-107); Glucose 174 mg/dL (74-106); Magnesium 1.9 mg/dL (1.6-2.6); Sodium 143 mmol/L (136-145)
[2024-03-09 04:47] LABS: Albumin 3.1 g/dL (3.2-4.8)
[2024-03-09 04:48] LABS: Aspartate Aminotransferase 34 U/L (13-40); Bilirubin, Total 0.6 mg/dL (0.2-1.0); Phosphorus 2.4 mg/dL (2.4-5.1); Total Protein 6.3 g/dL (5.7-8.2)
[2024-03-09 07:29] LABS: Base Excess 8.7 mmol/L (-2.0-2.0)
[2024-03-09] MEDS: cefTRIAXone 2GM/50ML D5W 50 ML IV SCH (09:36)
[2024-03-09] MEDS ORDERED: FUROSEMIDE 20 MG/2 ML VIAL IV SCH (10:00)
[2024-03-09] MEDS: POTASSIUM CHL 20MEQ/100ML 200 ML IV ONE (10:04)
[2024-03-09] MEDS: Glucerna 1.2 Cal 1Liter BOTTLE GT SCH (11:42)
[2024-03-10] VITALS (110 sets, daily range): BP systolic 85–126; BP diastolic 46–79; PULSE 70–90; RESP 11–30; TEMP 97.3–99.1; O2SAT 91–99
[2024-03-10 03:47] LABS: Basophils # (auto) 0 10 ^3/uL (0-0.2); Eosinophils # (auto) 0 10 ^3/uL (0-0.8); Eosinophils % (auto) 0.5 % (0.0-7.0); Hematocrit 45.4 % (36.0-46.0); Hemoglobin 14.1 g/dL (12.2-16.2); Lymphocytes # (auto) 2.2 10 ^3/uL (0.4-5.4); Mean Corpuscular Hemoglobin 28.2 pg (28.0-32.0); Mean Corpuscular Hgb Conc. 31.1 g/dL (32.0-36.0); Mean Corpuscular Volume 90.9 fL (80.0-100.0); Neutrophils # (auto) 6.8 10 ^3/uL (1.6-8.6); Neutrophils % (auto) 67.5 % (37.0-80.0); Nucleated Red Blood Cells % 0.1 %; Red Cell Distribution Width 16.2 % (11.8-14.3); White Blood Cell 10.1 10^3/uL (4.4-10.8)
[2024-03-10 04:09] LABS: Alanine Aminotransferase 15 U/L (7-40); Albumin 2.9 g/dL (3.2-4.8); Alkaline Phosphatase 63 U/L (46-116); Anion Gap 4 (5-15); BUN/Creatinine Ratio 41.2 (10.0-20.0); Blood Urea Nitrogen 28 mg/dL (9-23); Calcium 9.4 mg/dL (8.7-10.4); Carbon Dioxide 36 mmol/L (20-30); Chloride 106 mmol/L (98-107); Glucose 118 mg/dL (74-106); Magnesium 1.7 mg/dL (1.6-2.6); Potassium 2.9 mmol/L (3.5-5.1); Sodium 146 mmol/L (136-145)
[2024-03-10 04:10] LABS: Aspartate Aminotransferase 27 U/L (13-40); Bilirubin, Total 0.5 mg/dL (0.2-1.0); Total Protein 5.8 g/dL (5.7-8.2)
[2024-03-10 07:18] LABS: Base Excess 8.5 mmol/L (-2.0-2.0)
[2024-03-10] MEDS: POTASSIUM EFFERVESENT TAB 25 MEQ GT ONE (09:29)
[2024-03-10] MEDS: POTASSIUM CHL 20MEQ/100ML 100 ML IV SCH (11:01)
[2024-03-10 11:03] LABS: Base Excess 10.8 mmol/L (-2.0-2.0)
[2024-03-10] MEDS: acetaZOLAMIDE SODIUM 500 MG VL IV ONE (12:32)
[2024-03-10 13:07] LABS: Cytoplasmic (C-ANCA) <1:20 titer (Neg:<1:20); Perinuclear (P-ANCA) <1:20 titer (Neg:<1:20)
[2024-03-10] MEDS: CLINDAMYCIN 600MG IV 50 ML IV SCH (13:45)
[2024-03-10] MEDS: acetaZOLAMIDE 250 MG TAB PO SCH (19:46)
[2024-03-10] MEDS: POTASSIUM CHL 20MEQ/100ML 100 ML IV ONE (21:53)
[2024-03-11] VITALS (119 sets, daily range): BP systolic 93–140; BP diastolic 45–83; PULSE 71–88; RESP 17–21; TEMP 97.5–99.3; O2SAT 90–98
[2024-03-11 03:57] LABS: Basophils # (auto) 0 10 ^3/uL (0-0.2); Basophils % (auto) 0.2 % (0.0-2.0); Eosinophils # (auto) 0.2 10 ^3/uL (0-0.8); Eosinophils % (auto) 2.7 % (0.0-7.0); Hematocrit 46.6 % (36.0-46.0); Hemoglobin 14.5 g/dL (12.2-16.2); Lymphocytes # (auto) 2.4 10 ^3/uL (0.4-5.4); Mean Corpuscular Hemoglobin 28.7 pg (28.0-32.0); Mean Corpuscular Hgb Conc. 31.2 g/dL (32.0-36.0); Mean Corpuscular Volume 91.9 fL (80.0-100.0); Monocytes # (auto) 0.7 10 ^3/uL (0-1.3); Neutrophils # (auto) 4.2 10 ^3/uL (1.6-8.6); Neutrophils % (auto) 56.1 % (37.0-80.0); Nucleated Red Blood Cells % 0.1 %; Red Blood Cells 5.07 10^6/uL (4.0-5.20); Red Cell Distribution Width 16.7 % (11.8-14.3); White Blood Cell 7.5 10^3/uL (4.4-10.8)
[2024-03-11 04:06] LABS: Chloride 111 mmol/L (98-107); Potassium 3.4 mmol/L (3.5-5.1); Sodium 148 mmol/L (136-145)
[2024-03-11 04:07] LABS: Anion Gap 3 (5-15); Calcium 9.2 mg/dL (8.7-10.4); Carbon Dioxide 34 mmol/L (20-30)
[2024-03-11 04:12] LABS: BUN/Creatinine Ratio 38.1 (10.0-20.0); Blood Urea Nitrogen 24 mg/dL (9-23); Glucose 121 mg/dL (74-106)
[2024-03-11 04:13] LABS: Magnesium 1.6 mg/dL (1.6-2.6)
[2024-03-11 07:36] LABS: Base Excess 6.4 mmol/L (-2.0-2.0)
[2024-03-11] MEDS: POTASSIUM EFFERVESENT TAB 25 MEQ GT ONE (09:19)
[2024-03-11] MEDS: POTASSIUM CHL 20MEQ/100ML 100 ML IV SCH (09:20)
[2024-03-11] MEDS: MAGNESIUM SULFATE 1GM/100ML 100 ML IV SCH (14:24)
[2024-03-11] MEDS: fentaNYL Drip 2500mCg/250mlNS 250 ML IV SCH (15:44)
[2024-03-11] MEDS: FREE WATER GT SCH (18:14)
[2024-03-11] MEDS: FUROSEMIDE 20 MG/2 ML VIAL IV SCH (22:25)
[2024-03-12] VITALS (107 sets, daily range): BP systolic 91–167; BP diastolic 53–103; PULSE 70–99; RESP 15–35; TEMP 98.4–100.8; O2SAT 91–100
[2024-03-12 03:32] LABS: Basophils # (auto) 0 10 ^3/uL (0-0.2); Basophils % (auto) 0.4 % (0.0-2.0); Eosinophils # (auto) 0.2 10 ^3/uL (0-0.8); Eosinophils % (auto) 3.2 % (0.0-7.0); Hematocrit 44.6 % (36.0-46.0); Hemoglobin 14.1 g/dL (12.2-16.2); Lymphocytes # (auto) 1.9 10 ^3/uL (0.4-5.4); Lymphocytes % (auto) 27.3 % (10.0-50.0); Mean Corpuscular Hemoglobin 28.8 pg (28.0-32.0); Mean Corpuscular Hgb Conc. 31.7 g/dL (32.0-36.0); Mean Corpuscular Volume 91.1 fL (80.0-100.0); Monocytes # (auto) 0.6 10 ^3/uL (0-1.3); Monocytes % (auto) 7.9 % (0.0-12.0); Neutrophils # (auto) 4.4 10 ^3/uL (1.6-8.6); Neutrophils % (auto) 61.2 % (37.0-80.0); Nucleated Red Blood Cells % 0.1 %; Red Blood Cells 4.89 10^6/uL (4.0-5.20); Red Cell Distribution Width 16.4 % (11.8-14.3); White Blood Cell 7.1 10^3/uL (4.4-10.8)
[2024-03-12 03:43] LABS: Chloride 110 mmol/L (98-107); Potassium 3.6 mmol/L (3.5-5.1); Sodium 145 mmol/L (136-145)
[2024-03-12 03:44] LABS: Anion Gap 5 (5-15); Calcium 9.1 mg/dL (8.7-10.4); Carbon Dioxide 30 mmol/L (20-30)
[2024-03-12 03:49] LABS: BUN/Creatinine Ratio 35.7 (10.0-20.0); Blood Urea Nitrogen 20 mg/dL (9-23); Glucose 141 mg/dL (74-106)
[2024-03-12 03:50] LABS: Magnesium 1.7 mg/dL (1.6-2.6)
[2024-03-12] MEDS: POTASSIUM EFFERVESENT TAB 25 MEQ GT ONE (06:45)
[2024-03-12] MEDS: MAGNESIUM SULFATE 1GM/100ML 100 ML IV ONE (06:45)
[2024-03-12 07:17] LABS: Base Excess 2.9 mmol/L (-2.0-2.0)
[2024-03-12] MEDS: POTASSIUM CHL 20MEQ/100ML 100 ML IV ONE (09:40)
[2024-03-12] MEDS: ACETAMINOPHEN 500 MG TAB PO PRN (12:20)
[2024-03-12] MEDS ORDERED: DOXYCYCLINE 100MG/250ML 250 ML IV SCH (14:30)
[2024-03-12] MEDS: FREE WATER GT SCH (18:00)
[2024-03-12] MEDS: LINEZOLID 600MG/300ML 300 ML IV SCH (22:15)
[2024-03-13] VITALS (108 sets, daily range): BP systolic 88–177; BP diastolic 41–88; PULSE 77–96; RESP 10–35; TEMP 97.3–100.8; O2SAT 90–100
[2024-03-13 04:07] LABS: Basophils # (auto) 0.1 10 ^3/uL (0-0.2); Basophils % (auto) 0.8 % (0.0-2.0); Eosinophils # (auto) 0.2 10 ^3/uL (0-0.8); Eosinophils % (auto) 2.5 % (0.0-7.0); Hematocrit 45.1 % (36.0-46.0); Hemoglobin 14.5 g/dL (12.2-16.2); Lymphocytes # (auto) 1.6 10 ^3/uL (0.4-5.4); Lymphocytes % (auto) 17.8 % (10.0-50.0); Mean Corpuscular Hemoglobin 29.2 pg (28.0-32.0); Mean Corpuscular Hgb Conc. 32.1 g/dL (32.0-36.0); Mean Corpuscular Volume 90.8 fL (80.0-100.0); Monocytes # (auto) 0.8 10 ^3/uL (0-1.3); Neutrophils # (auto) 6.4 10 ^3/uL (1.6-8.6); Neutrophils % (auto) 69.9 % (37.0-80.0); Nucleated Red Blood Cells % 0.1 %; Red Blood Cells 4.97 10^6/uL (4.0-5.20); Red Cell Distribution Width 15.8 % (11.8-14.3); White Blood Cell 9.1 10^3/uL (4.4-10.8)
[2024-03-13 04:28] LABS: Alanine Aminotransferase 13 U/L (7-40); Albumin 3.2 g/dL (3.2-4.8); Alkaline Phosphatase 72 U/L (46-116); Anion Gap 6 (5-15); Aspartate Aminotransferase 22 U/L (13-40); BUN/Creatinine Ratio 22.6 (10.0-20.0); Blood Urea Nitrogen 14 mg/dL (9-23); Calcium 9.5 mg/dL (8.7-10.4); Carbon Dioxide 29 mmol/L (20-30); Chloride 109 mmol/L (98-107); Glucose 106 mg/dL (74-106); Magnesium 1.7 mg/dL (1.6-2.6); Potassium 3.4 mmol/L (3.5-5.1); Sodium 144 mmol/L (136-145)
[2024-03-13 04:29] LABS: Bilirubin, Total 1.2 mg/dL (0.2-1.0); Total Protein 6.4 g/dL (5.7-8.2)
[2024-03-13 08:23] LABS: Base Excess 4.3 mmol/L (-2.0-2.0)
[2024-03-13] MEDS: acetaZOLAMIDE 250 MG TAB PO SCH (11:08)
[2024-03-13 14:17] LABS: Base Excess 3.5 mmol/L (-2.0-2.0)
[2024-03-14] VITALS (95 sets, daily range): BP systolic 91–151; BP diastolic 50–95; PULSE 72–100; RESP 12–27; TEMP 98.2–100.8; O2SAT 80–100
[2024-03-14 05:40] LABS: Basophils # (auto) 0.1 10 ^3/uL (0-0.2); Basophils % (auto) 0.6 % (0.0-2.0); Eosinophils # (auto) 0.2 10 ^3/uL (0-0.8); Eosinophils % (auto) 1.9 % (0.0-7.0); Hematocrit 44.7 % (36.0-46.0); Hemoglobin 14.1 g/dL (12.2-16.2); Lymphocytes # (auto) 1.8 10 ^3/uL (0.4-5.4); Lymphocytes % (auto) 17.8 % (10.0-50.0); Mean Corpuscular Hemoglobin 28.8 pg (28.0-32.0); Mean Corpuscular Hgb Conc. 31.6 g/dL (32.0-36.0); Mean Corpuscular Volume 91.3 fL (80.0-100.0); Monocytes # (auto) 0.9 10 ^3/uL (0-1.3); Monocytes % (auto) 8.7 % (0.0-12.0); Neutrophils # (auto) 7.3 10 ^3/uL (1.6-8.6); Red Blood Cells 4.89 10^6/uL (4.0-5.20); Red Cell Distribution Width 16.2 % (11.8-14.3); White Blood Cell 10.2 10^3/uL (4.4-10.8)
[2024-03-14 05:45] LABS: Alanine Aminotransferase 10 U/L (7-40); Albumin 3.2 g/dL (3.2-4.8); Alkaline Phosphatase 72 U/L (46-116); Anion Gap 9 (5-15); Aspartate Aminotransferase 22 U/L (13-40); Bilirubin, Total 1.1 mg/dL (0.2-1.0); Blood Urea Nitrogen 12 mg/dL (9-23); Calcium 9.5 mg/dL (8.7-10.4); Carbon Dioxide 27 mmol/L (20-30); Chloride 106 mmol/L (98-107); Glucose 100 mg/dL (74-106); Potassium 3.4 mmol/L (3.5-5.1); Sodium 142 mmol/L (136-145); Total Protein 6.5 g/dL (5.7-8.2)
[2024-03-14 08:16] LABS: Base Excess 1.3 mmol/L (-2.0-2.0)
[2024-03-14] MEDS: ONDANSETRON HCL 4 MG/2 ML VIAL IV PRN (11:35)
[2024-03-14 15:02] LABS: Base Excess 2.7 mmol/L (-2.0-2.0)
[2024-03-15] VITALS (89 sets, daily range): BP systolic 89–138; BP diastolic 52–85; PULSE 74–99; RESP 11–27; TEMP 98.8–100; O2SAT 89–99
[2024-03-15 04:27] LABS: Basophils # (auto) 0.1 10 ^3/uL (0-0.2); Basophils % (auto) 0.6 % (0.0-2.0); Eosinophils # (auto) 0.3 10 ^3/uL (0-0.8); Eosinophils % (auto) 2.8 % (0.0-7.0); Hematocrit 42.1 % (36.0-46.0); Hemoglobin 13.3 g/dL (12.2-16.2); Lymphocytes % (auto) 20.5 % (10.0-50.0); Mean Corpuscular Hemoglobin 28.6 pg (28.0-32.0); Mean Corpuscular Hgb Conc. 31.7 g/dL (32.0-36.0); Mean Corpuscular Volume 90.2 fL (80.0-100.0); Monocytes % (auto) 10.5 % (0.0-12.0); Neutrophils # (auto) 6.4 10 ^3/uL (1.6-8.6); Neutrophils % (auto) 65.6 % (37.0-80.0); Nucleated Red Blood Cells % 0.1 %; Red Blood Cells 4.66 10^6/uL (4.0-5.20); White Blood Cell 9.7 10^3/uL (4.4-10.8)
[2024-03-15 04:37] LABS: Chloride 104 mmol/L (98-107); Potassium 2.9 mmol/L (3.5-5.1); Sodium 141 mmol/L (136-145)
[2024-03-15 04:38] LABS: Anion Gap 8 (5-15); Carbon Dioxide 29 mmol/L (20-30)
[2024-03-15 04:39] LABS: Calcium 9.2 mg/dL (8.7-10.4)
[2024-03-15 04:43] LABS: Blood Urea Nitrogen 12 mg/dL (9-23); Glucose 103 mg/dL (74-106)
[2024-03-15] MEDS: POTASSIUM CHL 20MEQ/100ML 100 ML IV SCH (06:31)
[2024-03-15 07:21] LABS: Base Excess 3.6 mmol/L (-2.0-2.0)
[2024-03-15] MEDS: POTASSIUM EFFERVESENT TAB 25 MEQ PO ONE (08:03)
[2024-03-15] MEDS: IPRATROPIUM BROM 0.5 MG/2.5ML INH SOL ONE (09:51)
[2024-03-15] MEDS: LEVALBUTEROL HCL 1.25 MG/3 ML NEB ONE (09:51)
[2024-03-15] MEDS: MAGNESIUM SULFATE 1GM/100ML 100 ML IV SCH (11:13)
[2024-03-15] MEDS: MICAFUNGIN SODIUM 100 MG in SODIUM CHL 0.9% 100 ML IV ONE (14:58)
[2024-03-16] VITALS (82 sets, daily range): BP systolic 94–155; BP diastolic 54–90; PULSE 69–127; RESP 15–37; TEMP 99.5–100.2; O2SAT 81–100
[2024-03-16 03:59] LABS: Basophils # (auto) 0.1 10 ^3/uL (0-0.2); Basophils % (auto) 0.7 % (0.0-2.0); Eosinophils # (auto) 0.3 10 ^3/uL (0-0.8); Eosinophils % (auto) 2.9 % (0.0-7.0); Hematocrit 42.5 % (36.0-46.0); Hemoglobin 13.8 g/dL (12.2-16.2); Lymphocytes # (auto) 1.7 10 ^3/uL (0.4-5.4); Mean Corpuscular Hemoglobin 29.3 pg (28.0-32.0); Mean Corpuscular Hgb Conc. 32.4 g/dL (32.0-36.0); Mean Corpuscular Volume 90.5 fL (80.0-100.0); Monocytes # (auto) 1.2 10 ^3/uL (0-1.3); Monocytes % (auto) 12.2 % (0.0-12.0); Neutrophils # (auto) 6.4 10 ^3/uL (1.6-8.6); Neutrophils % (auto) 66.2 % (37.0-80.0); Red Blood Cells 4.69 10^6/uL (4.0-5.20); Red Cell Distribution Width 15.6 % (11.8-14.3); White Blood Cell 9.6 10^3/uL (4.4-10.8)
[2024-03-16 04:20] LABS: Alanine Aminotransferase 10 U/L (7-40); Albumin 3.3 g/dL (3.2-4.8); Alkaline Phosphatase 84 U/L (46-116); Anion Gap 7 (5-15); Aspartate Aminotransferase 19 U/L (13-40); BUN/Creatinine Ratio 21.1 (10.0-20.0); Blood Urea Nitrogen 12 mg/dL (9-23); Calcium 9.1 mg/dL (8.7-10.4); Carbon Dioxide 27 mmol/L (20-30); Chloride 103 mmol/L (98-107); Glucose 121 mg/dL (74-106); Magnesium 1.8 mg/dL (1.6-2.6); Potassium 3.4 mmol/L (3.5-5.1); Sodium 137 mmol/L (136-145)
[2024-03-16 04:21] LABS: Bilirubin, Total 0.9 mg/dL (0.2-1.0); Total Protein 6.7 g/dL (5.7-8.2)
[2024-03-16] MEDS: POTASSIUM EFFERVESENT TAB 25 MEQ GT ONE (07:15)
[2024-03-16] MEDS: MAGNESIUM SULFATE 1GM/100ML 100 ML IV ONE (07:15)
[2024-03-16] MEDS: POTASSIUM CHL 20MEQ/100ML 100 ML IV SCH (07:21)
[2024-03-16 08:51] LABS: Base Excess 0.7 mmol/L (-2.0-2.0)
[2024-03-16] MEDS: FUROSEMIDE 40 MG/4 ML VIAL IV SCH (10:12)
[2024-03-16] MEDS: MICAFUNGIN SODIUM 100 MG in SODIUM CHL 0.9% 100 ML IV SCH (10:14)
[2024-03-16 13:28] LABS: Base Excess 1.9 mmol/L (-2.0-2.0)
[2024-03-16] MEDS: FUROSEMIDE 40 MG/4 ML VIAL IV ONE (13:42)
[2024-03-16] MEDS: EPINEPHrine HCL 0.5 ML NEB ONE (15:46)
[2024-03-16] MEDS: EPINEPHrine HCL 0.5 ML NEB NEB ONE (18:00)
[2024-03-16] MEDS: LORazepam 2MG/ML-1ML VIAL IV PRN (23:24)
[2024-03-17] VITALS (78 sets, daily range): BP systolic 99–174; BP diastolic 56–101; PULSE 93–117; RESP 14–40; TEMP 98.1–98.8; O2SAT 82–100
[2024-03-17 04:15] LABS: Anion Gap 7 (5-15); Basophils # (auto) 0.1 10 ^3/uL (0-0.2); Basophils % (auto) 0.8 % (0.0-2.0); Carbon Dioxide 28 mmol/L (20-30); Chloride 103 mmol/L (98-107); Eosinophils # (auto) 0.2 10 ^3/uL (0-0.8); Eosinophils % (auto) 2.2 % (0.0-7.0); Hematocrit 44.1 % (36.0-46.0); Lymphocytes # (auto) 1.4 10 ^3/uL (0.4-5.4); Mean Corpuscular Hemoglobin 29.2 pg (28.0-32.0); Mean Corpuscular Hgb Conc. 31.8 g/dL (32.0-36.0); Mean Corpuscular Volume 92.1 fL (80.0-100.0); Monocytes # (auto) 1.1 10 ^3/uL (0-1.3); Monocytes % (auto) 11.8 % (0.0-12.0); Neutrophils # (auto) 6.7 10 ^3/uL (1.6-8.6); Neutrophils % (auto) 70.2 % (37.0-80.0); Nucleated Red Blood Cells % 0.1 %; Potassium 3.4 mmol/L (3.5-5.1); Red Blood Cells 4.79 10^6/uL (4.0-5.20); Red Cell Distribution Width 15.7 % (11.8-14.3); Sodium 138 mmol/L (136-145); White Blood Cell 9.5 10^3/uL (4.4-10.8)
[2024-03-17 04:16] LABS: Calcium 9.6 mg/dL (8.7-10.4)
[2024-03-17 04:21] LABS: BUN/Creatinine Ratio 12.7 (10.0-20.0); Blood Urea Nitrogen 7 mg/dL (9-23); Glucose 119 mg/dL (74-106)
[2024-03-17 04:22] LABS: Magnesium 1.7 mg/dL (1.6-2.6)
[2024-03-17 05:08] LABS: CRP High Sensitivity 8.82 mg/dL (<1.0)
[2024-03-17] MEDS: EPINEPHrine HCL 0.5 ML NEB ONE (07:40)
[2024-03-17] MEDS: EPINEPHrine HCL 0.5 ML NEB NEB ONE (07:56)
[2024-03-17 08:37] LABS: Base Excess 0.4 mmol/L (-2.0-2.0)
[2024-03-17] MEDS: FUROSEMIDE 40 MG/4 ML VIAL IV ONE (11:58)
[2024-03-17] MEDS: methylPREDNISolone SOD SUCC 40 MG/ML VL IV ONE (12:37)
[2024-03-17] MEDS: POTASSIUM CHL 20MEQ/100ML 100 ML IV ONE (13:18)
[2024-03-17] MEDS: cefTRIAXone 2GM/50ML D5W 50 ML IV SCH (16:19)
[2024-03-17] MEDS: DexAMETHasone SOD PHOS 4 MG/1ML SDV INJ IV ONE (16:32)
[2024-03-17] MEDS: NTG 0.1MG/HR TOPICAL PATCH TD SCH (16:32)
[2024-03-17] MEDS: LINEZOLID 600MG/300ML 300 ML IV SCH (21:07)
[2024-03-17] MEDS: methylPREDNISolone SOD SUCC 40 MG/ML VL IV SCH (21:07)
[2024-03-18] VITALS (36 sets, daily range): BP systolic 98–178; BP diastolic 54–116; PULSE 87–121; RESP 13–31; TEMP 97.4–98.8; O2SAT 85–96
[2024-03-18 03:56] LABS: Basophils # (auto) 0 10 ^3/uL (0-0.2); Basophils % (auto) 0.2 % (0.0-2.0); Eosinophils # (auto) 0 10 ^3/uL (0-0.8); Hematocrit 46.8 % (36.0-46.0); Hemoglobin 15.1 g/dL (12.2-16.2); Lymphocytes % (auto) 11.1 % (10.0-50.0); Mean Corpuscular Hemoglobin 28.8 pg (28.0-32.0); Mean Corpuscular Hgb Conc. 32.2 g/dL (32.0-36.0); Mean Corpuscular Volume 89.6 fL (80.0-100.0); Monocytes # (auto) 0.1 10 ^3/uL (0-1.3); Monocytes % (auto) 1.5 % (0.0-12.0); Neutrophils # (auto) 7.7 10 ^3/uL (1.6-8.6); Neutrophils % (auto) 87.2 % (37.0-80.0); Nucleated Red Blood Cells % 0.2 %; Red Blood Cells 5.23 10^6/uL (4.0-5.20); Red Cell Distribution Width 15.1 % (11.8-14.3); White Blood Cell 8.8 10^3/uL (4.4-10.8)
[2024-03-18 04:12] LABS: Alanine Aminotransferase 15 U/L (7-40); Alkaline Phosphatase 98 U/L (46-116); Anion Gap 9 (5-15); Calcium 10.3 mg/dL (8.7-10.4); Carbon Dioxide 28 mmol/L (20-30); Chloride 102 mmol/L (98-107); Glucose 150 mg/dL (74-106); Potassium 3.6 mmol/L (3.5-5.1); Sodium 139 mmol/L (136-145)
[2024-03-18 04:13] LABS: BUN/Creatinine Ratio 18.9 (10.0-20.0); Blood Urea Nitrogen 10 mg/dL (9-23); Magnesium 1.7 mg/dL (1.6-2.6)
[2024-03-18 04:14] LABS: Albumin 3.8 g/dL (3.2-4.8); Aspartate Aminotransferase 18 U/L (13-40)
[2024-03-18 04:15] LABS: Bilirubin, Total 0.7 mg/dL (0.2-1.0); Total Protein 7.7 g/dL (5.7-8.2)
[2024-03-18] MEDS: ENALAPRILAT 1.25 MG/ML-1ML VIAL IV PRN (05:10)
[2024-03-18] MEDS: MAGNESIUM SULFATE 1GM/100ML 100 ML IV SCH (10:09)
[2024-03-18] MEDS: LORazepam 2MG/ML-1ML VIAL IV PRN ×2 (10:19→19:58)
[2024-03-18] MEDS: POTASSIUM CHLORIDE 40 MEQ, LIDOCAINE 1% (LOCAL ANESTH.) 4 ML in SODIUM CHL 0.9% 250 ML IV ONE (10:53)
[2024-03-18] MEDS: MAGNESIUM SULFATE 1GM/100ML 100 ML IV ONE (12:48)
[2024-03-19] VITALS (43 sets, daily range): BP systolic 133–179; BP diastolic 68–114; PULSE 90–106; RESP 12–32; TEMP 98.1–99.5; O2SAT 3–99
[2024-03-19 04:24] LABS: Basophils # (auto) 0 10 ^3/uL (0-0.2); Basophils % (auto) 0.2 % (0.0-2.0); Eosinophils # (auto) 0 10 ^3/uL (0-0.8); Eosinophils % (auto) 0.1 % (0.0-7.0); Hemoglobin 14.6 g/dL (12.2-16.2); Lymphocytes % (auto) 10.6 % (10.0-50.0); Mean Corpuscular Hemoglobin 28.9 pg (28.0-32.0); Mean Corpuscular Hgb Conc. 32.5 g/dL (32.0-36.0); Mean Corpuscular Volume 88.9 fL (80.0-100.0); Monocytes # (auto) 0.3 10 ^3/uL (0-1.3); Monocytes % (auto) 3.3 % (0.0-12.0); Neutrophils # (auto) 8.3 10 ^3/uL (1.6-8.6); Neutrophils % (auto) 85.8 % (37.0-80.0); Red Blood Cells 5.06 10^6/uL (4.0-5.20); Red Cell Distribution Width 15.7 % (11.8-14.3); White Blood Cell 9.7 10^3/uL (4.4-10.8)
[2024-03-19 04:39] LABS: Alanine Aminotransferase 18 U/L (7-40); Albumin 3.7 g/dL (3.2-4.8); Alkaline Phosphatase 86 U/L (46-116); Anion Gap 10 (5-15); Aspartate Aminotransferase 24 U/L (13-40); BUN/Creatinine Ratio 23.6 (10.0-20.0); Blood Urea Nitrogen 13 mg/dL (9-23); Calcium 9.7 mg/dL (8.5-10.1); Carbon Dioxide 28 mmol/L (20-30); Chloride 104 mmol/L (98-107); Glucose 160 mg/dL (74-106); Potassium 4.1 mmol/L (3.5-5.1); Sodium 142 mmol/L (136-145)
[2024-03-19 04:40] LABS: Bilirubin, Total 0.7 mg/dL (0.2-1.0); Total Protein 7.1 g/dL (5.7-8.2)
[2024-03-19 04:48] LABS: CRP High Sensitivity 3.02 mg/dL (<1.0)
[2024-03-19 07:34] LABS: Base Excess 6.5 mmol/L (-2.0-2.0)
[2024-03-19] MEDS: FLUCONAZOLE 200MG/100ML 100 ML IV SCH (11:10)
[2024-03-19] MEDS: Glucerna 1.2 Cal 1Liter BOTTLE GT SCH (22:29)
[2024-03-20] VITALS (25 sets, daily range): BP systolic 103–154; BP diastolic 55–94; PULSE 90–113; RESP 16–29; TEMP 98.2–99.7; O2SAT 87–100
[2024-03-20 05:02] LABS: Basophils # (auto) 0 10 ^3/uL (0-0.2); Basophils % (auto) 0.1 % (0.0-2.0); Eosinophils # (auto) 0 10 ^3/uL (0-0.8); Eosinophils % (auto) 0.2 % (0.0-7.0); Hematocrit 47.8 % (36.0-46.0); Hemoglobin 15.3 g/dL (12.2-16.2); Lymphocytes # (auto) 1.8 10 ^3/uL (0.4-5.4); Lymphocytes % (auto) 16.5 % (10.0-50.0); Mean Corpuscular Hemoglobin 28.7 pg (28.0-32.0); Mean Corpuscular Volume 89.5 fL (80.0-100.0); Monocytes % (auto) 9.6 % (0.0-12.0); Neutrophils # (auto) 7.9 10 ^3/uL (1.6-8.6); Neutrophils % (auto) 73.6 % (37.0-80.0); Nucleated Red Blood Cells % 0.3 %; Red Blood Cells 5.34 10^6/uL (4.0-5.20); Red Cell Distribution Width 15.4 % (11.8-14.3); White Blood Cell 10.7 10^3/uL (4.4-10.8)
[2024-03-20 05:24] LABS: Alanine Aminotransferase 23 U/L (7-40); Alkaline Phosphatase 84 U/L (46-116); Anion Gap 9 (5-15); BUN/Creatinine Ratio 24.6 (10.0-20.0); Blood Urea Nitrogen 16 mg/dL (9-23); Calcium 10.1 mg/dL (8.7-10.4); Carbon Dioxide 33 mmol/L (20-30); Chloride 103 mmol/L (98-107); Glucose 131 mg/dL (74-106); Magnesium 1.7 mg/dL (1.6-2.6); Sodium 145 mmol/L (136-145)
[2024-03-20 05:26] LABS: Albumin 3.8 g/dL (3.2-4.8); Aspartate Aminotransferase 26 U/L (13-40); Bilirubin, Total 0.9 mg/dL (0.2-1.0); Total Protein 7.4 g/dL (5.7-8.2)
[2024-03-20] MEDS: POTASSIUM CHL 20MEQ/100ML 100 ML IV SCH ×2 (06:00→12:23)
[2024-03-20 06:03] LABS: CRP High Sensitivity 1.16 mg/dL (<1.0)
[2024-03-21] VITALS (28 sets, daily range): BP systolic 110–146; BP diastolic 58–87; PULSE 80–98; RESP 17–89; TEMP 97.5–99.5; O2SAT 89–97
[2024-03-21 05:40] LABS: Basophils # (auto) 0 10 ^3/uL (0-0.2); Basophils % (auto) 0.1 % (0.0-2.0); Eosinophils # (auto) 0.1 10 ^3/uL (0-0.8); Eosinophils % (auto) 1.5 % (0.0-7.0); Hematocrit 49.1 % (36.0-46.0); Hemoglobin 15.8 g/dL (12.2-16.2); Lymphocytes # (auto) 1.9 10 ^3/uL (0.4-5.4); Mean Corpuscular Hemoglobin 29.1 pg (28.0-32.0); Mean Corpuscular Hgb Conc. 32.2 g/dL (32.0-36.0); Mean Corpuscular Volume 90.4 fL (80.0-100.0); Monocytes # (auto) 0.7 10 ^3/uL (0-1.3); Monocytes % (auto) 7.8 % (0.0-12.0); Neutrophils # (auto) 5.7 10 ^3/uL (1.6-8.6); Neutrophils % (auto) 67.6 % (37.0-80.0); Nucleated Red Blood Cells % 0.1 %; Red Blood Cells 5.43 10^6/uL (4.0-5.20); Red Cell Distribution Width 15.2 % (11.8-14.3); White Blood Cell 8.5 10^3/uL (4.4-10.8)
[2024-03-21 05:43] LABS: Anion Gap 9 (5-15); Carbon Dioxide 34 mmol/L (20-30); Chloride 103 mmol/L (98-107); Potassium 3.3 mmol/L (3.5-5.1); Sodium 146 mmol/L (136-145)
[2024-03-21 05:45] LABS: Calcium 9.7 mg/dL (8.5-10.1)
[2024-03-21 05:49] LABS: BUN/Creatinine Ratio 25.9 (10.0-20.0); Blood Urea Nitrogen 15 mg/dL (9-23); Glucose 115 mg/dL (74-106)
[2024-03-21] MEDS ORDERED: POTASSIUM CHL 20MEQ/100ML 100 ML IV SCH (09:15)
[2024-03-21] MEDS: MAGNESIUM SULFATE 1GM/100ML 100 ML IV ONE (09:34)
[2024-03-21] MEDS: POTASSIUM CHLORIDE 40 MEQ in D5W 5% 1,000 ML IV SCH (10:46)
[2024-03-22] VITALS (34 sets, daily range): BP systolic 90–143; BP diastolic 38–90; PULSE 80–101; RESP 11–27; TEMP 97.2–98.7; O2SAT 87–100
[2024-03-22 05:56] LABS: Anion Gap 5 (5-15); Carbon Dioxide 36 mmol/L (20-30); Chloride 99 mmol/L (98-107); Potassium 3.7 mmol/L (3.5-5.1); Sodium 140 mmol/L (136-145)
[2024-03-22 05:58] LABS: Calcium 9.7 mg/dL (8.7-10.4)
[2024-03-22 06:01] LABS: Basophils # (auto) 0 10 ^3/uL (0-0.2); Basophils % (auto) 0.4 % (0.0-2.0); Eosinophils # (auto) 0.2 10 ^3/uL (0-0.8); Eosinophils % (auto) 2.6 % (0.0-7.0); Hematocrit 48.6 % (36.0-46.0); Hemoglobin 15.5 g/dL (12.2-16.2); Lymphocytes # (auto) 1.8 10 ^3/uL (0.4-5.4); Lymphocytes % (auto) 19.1 % (10.0-50.0); Mean Corpuscular Hemoglobin 28.6 pg (28.0-32.0); Mean Corpuscular Volume 89.6 fL (80.0-100.0); Monocytes # (auto) 0.6 10 ^3/uL (0-1.3); Monocytes % (auto) 6.5 % (0.0-12.0); Neutrophils # (auto) 6.9 10 ^3/uL (1.6-8.6); Neutrophils % (auto) 71.4 % (37.0-80.0); Nucleated Red Blood Cells % 0.4 %; Red Blood Cells 5.42 10^6/uL (4.0-5.20); Red Cell Distribution Width 15.1 % (11.8-14.3); White Blood Cell 9.7 10^3/uL (4.4-10.8)
[2024-03-22 06:02] LABS: Glucose 133 mg/dL (74-106)
[2024-03-22 06:03] LABS: Blood Urea Nitrogen 11 mg/dL (9-23)
[2024-03-22] MEDS ORDERED: Glucerna 1.2 Cal 1Liter BOTTLE GT SCH (12:30)
[2024-03-22] MEDS: POTASSIUM CHLORIDE 40 MEQ in D5W 5% 1,000 ML IV SCH (12:30)
[2024-03-23] VITALS (17 sets, daily range): BP systolic 99–142; BP diastolic 61–83; PULSE 79–89; RESP 16–20; TEMP 97.5–98.4; O2SAT 93–100
[2024-03-23 06:56] LABS: Anion Gap 7 (5-15); Basophils # (auto) 0 10 ^3/uL (0-0.2); Basophils % (auto) 0.3 % (0.0-2.0); Calcium 9.5 mg/dL (8.5-10.1); Carbon Dioxide 31 mmol/L (20-30); Chloride 98 mmol/L (98-107); Eosinophils # (auto) 0.3 10 ^3/uL (0-0.8); Hematocrit 49.1 % (36.0-46.0); Hemoglobin 15.8 g/dL (12.2-16.2); Lymphocytes # (auto) 2.7 10 ^3/uL (0.4-5.4); Lymphocytes % (auto) 25.1 % (10.0-50.0); Mean Corpuscular Hemoglobin 28.9 pg (28.0-32.0); Mean Corpuscular Hgb Conc. 32.2 g/dL (32.0-36.0); Mean Corpuscular Volume 89.7 fL (80.0-100.0); Monocytes # (auto) 0.8 10 ^3/uL (0-1.3); Monocytes % (auto) 7.6 % (0.0-12.0); Neutrophils # (auto) 6.9 10 ^3/uL (1.6-8.6); Nucleated Red Blood Cells % 0.2 %; Potassium 3.8 mmol/L (3.5-5.1); Red Blood Cells 5.48 10^6/uL (4.0-5.20); Red Cell Distribution Width 15.6 % (11.8-14.3); Sodium 136 mmol/L (136-145); White Blood Cell 10.8 10^3/uL (4.4-10.8)
[2024-03-23 07:02] LABS: BUN/Creatinine Ratio 14.1 (10.0-20.0); Blood Urea Nitrogen 9 mg/dL (9-23); Glucose 125 mg/dL (74-106)
[2024-03-23 07:26] LABS: Magnesium 1.6 mg/dL (1.6-2.6)
[2024-03-23] MEDS: POTASSIUM CHL 20 Meq TABLET PO ONE (08:47)
[2024-03-23] MEDS: MAGNESIUM SULFATE 1GM/100ML 100 ML IV SCH (08:47)
[2024-03-23] MEDS ORDERED: LORazepam 2MG/ML-1ML VIAL IV PRN (12:00)
[2024-03-24] VITALS (8 sets, daily range): BP systolic 109–145; BP diastolic 58–77; PULSE 73–87; RESP 16–20; TEMP 97.6–98.4; O2SAT 92–100
[2024-03-24 07:54] LABS: Basophils # (auto) 0 10 ^3/uL (0-0.2); Basophils % (auto) 0.3 % (0.0-2.0); Eosinophils # (auto) 0.3 10 ^3/uL (0-0.8); Eosinophils % (auto) 2.8 % (0.0-7.0); Hematocrit 47.9 % (36.0-46.0); Hemoglobin 15.4 g/dL (12.2-16.2); Lymphocytes # (auto) 2.3 10 ^3/uL (0.4-5.4); Lymphocytes % (auto) 23.6 % (10.0-50.0); Mean Corpuscular Hgb Conc. 32.2 g/dL (32.0-36.0); Monocytes # (auto) 0.8 10 ^3/uL (0-1.3); Monocytes % (auto) 8.1 % (0.0-12.0); Neutrophils # (auto) 6.4 10 ^3/uL (1.6-8.6); Neutrophils % (auto) 65.2 % (37.0-80.0); Nucleated Red Blood Cells % 0.3 %; Red Blood Cells 5.32 10^6/uL (4.0-5.20); Red Cell Distribution Width 15.5 % (11.8-14.3); White Blood Cell 9.8 10^3/uL (4.4-10.8)
[2024-03-24 08:09] LABS: Anion Gap 7 (5-15); Calcium 9.6 mg/dL (8.5-10.1); Carbon Dioxide 31 mmol/L (20-30); Chloride 96 mmol/L (98-107); Potassium 3.5 mmol/L (3.5-5.1); Sodium 134 mmol/L (136-145)
[2024-03-24 08:15] LABS: BUN/Creatinine Ratio 15.9 (10.0-20.0); Blood Urea Nitrogen 10 mg/dL (9-23); Glucose 110 mg/dL (74-106)
[2024-03-24 08:39] LABS: Rapid Influenza A Negative (Negative); Rapid Influenza B Negative (Negative)
[2024-03-24 09:08] LABS: Magnesium 1.7 mg/dL (1.6-2.6)
[2024-03-24] MEDS ORDERED: FUROSEMIDE 40 MG/4 ML VIAL IV SCH (10:00)
[2024-03-24] MEDS ORDERED: FUROSEMIDE 40 MG TAB PO SCH (10:00)
[2024-03-24] MEDS: FUROSEMIDE 40 MG TAB PO SCH (10:01)
[2024-03-24] MEDS: POTASSIUM CHL 20 Meq TABLET PO SCH (10:01)
[2024-03-24] MEDS: MAGNESIUM SULFATE 1GM/100ML 100 ML IV SCH (10:01)
[2024-03-24] MEDS: POTASSIUM CHL 20 Meq TABLET PO ONE (10:02)
== END 2024-03-24 13:40 | disposition left against medical advice (07) | DRG 720 ==
LOC: ER 12:40 → TELE 16:24 → ICU WEST 03-02 15:45 → DOU IN ICU 03-19 19:35 → CENTRAL 03-22 18:09 → DOU IN ICU 03-22 18:30 → TELE-CENTR 03-22 19:32
PROVIDERS: ADMIT Internal Medicine; ATTEND Emergency Medicine
PROC: 05HF33Z Insertion of Infusion Device into Left Cephalic Vein, Percutaneous Approach (ICD-10-PCS; 2024-03-01)
PROC: B54NZZA Ultrasonography of Left Upper Extremity Veins, Guidance (ICD-10-PCS; 2024-03-01)
PROC: 5A09357 Assistance with Respiratory Ventilation, Less than 24 Consecutive Hours, Continuous Positive Airway Pressure (ICD-10-PCS; 2024-03-01)
PROC: 0BH17EZ Insertion of Endotracheal Airway into Trachea, Via Natural or Artificial Opening (ICD-10-PCS; principal; 2024-03-02)
PROC: 5A1955Z Respiratory Ventilation, Greater than 96 Consecutive Hours (ICD-10-PCS; 2024-03-02)
PROC: 02HV33Z Insertion of Infusion Device into Superior Vena Cava, Percutaneous Approach (ICD-10-PCS; 2024-03-02)
PROC: B548ZZA Ultrasonography of Superior Vena Cava, Guidance (ICD-10-PCS; 2024-03-02)
PROC: 5A09357 Assistance with Respiratory Ventilation, Less than 24 Consecutive Hours, Continuous Positive Airway Pressure (ICD-10-PCS; 2024-03-02)
PROC: 05HD33Z Insertion of Infusion Device into Right Cephalic Vein, Percutaneous Approach (ICD-10-PCS; 2024-03-17)
PROC: B54MZZA Ultrasonography of Right Upper Extremity Veins, Guidance (ICD-10-PCS; 2024-03-17)
PROC: 5A09357 Assistance with Respiratory Ventilation, Less than 24 Consecutive Hours, Continuous Positive Airway Pressure (ICD-10-PCS; 2024-03-17)
PROC: 5A09357 Assistance with Respiratory Ventilation, Less than 24 Consecutive Hours, Continuous Positive Airway Pressure (ICD-10-PCS; 2024-03-20)
PROC: 5A09357 Assistance with Respiratory Ventilation, Less than 24 Consecutive Hours, Continuous Positive Airway Pressure (ICD-10-PCS; 2024-03-21)
PROC: 05HD33Z Insertion of Infusion Device into Right Cephalic Vein, Percutaneous Approach (ICD-10-PCS; 2024-03-22)
PROC: B54MZZA Ultrasonography of Right Upper Extremity Veins, Guidance (ICD-10-PCS; 2024-03-22)
PROC: 5A09357 Assistance with Respiratory Ventilation, Less than 24 Consecutive Hours, Continuous Positive Airway Pressure (ICD-10-PCS; 2024-03-23)
DX: A41.51 Sepsis due to Escherichia coli [E. coli] (principal); N17.0 Acute kidney failure with tubular necrosis; J96.21 Acute and chronic respiratory failure with hypoxia; R65.21 Severe sepsis with septic shock; J69.0 Pneumonitis due to inhalation of food and vomit; G93.41 Metabolic encephalopathy; I50.33 Acute on chronic diastolic (congestive) heart failure; R18.8 Other ascites; I13.0 Hypertensive heart and chronic kidney disease with heart failure and stage 1 through stage 4 chronic kidney disease, or unspecified chronic kidney disease; L89.152 Pressure ulcer of sacral region, stage 2; I95.0 Idiopathic hypotension; B35.4 Tinea corporis; I21.A1 Myocardial infarction type 2; J44.0 Chronic obstructive pulmonary disease with (acute) lower respiratory infection; L03.115 Cellulitis of right lower limb; L03.116 Cellulitis of left lower limb; E87.5 Hyperkalemia; F17.210 Nicotine dependence, cigarettes, uncomplicated; J44.1 Chronic obstructive pulmonary disease with (acute) exacerbation; F32.A Depression, unspecified; N39.0 Urinary tract infection, site not specified; N20.0 Calculus of kidney; E66.01 Morbid (severe) obesity due to excess calories; D75.1 Secondary polycythemia; N18.9 Chronic kidney disease, unspecified; E87.0 Hyperosmolality and hypernatremia; Z20.822 Contact with and (suspected) exposure to COVID-19; E87.6 Hypokalemia; I47.10 Supraventricular tachycardia, unspecified; J96.22 Acute and chronic respiratory failure with hypercapnia; I48.0 Paroxysmal atrial fibrillation; R80.9 Proteinuria, unspecified; E11.22 Type 2 diabetes mellitus with diabetic chronic kidney disease; K42.9 Umbilical hernia without obstruction or gangrene; Z83.3 Family history of diabetes mellitus; Z90.710 Acquired absence of both cervix and uterus; Z87.442 Personal history of urinary calculi; Z90.49 Acquired absence of other specified parts of digestive tract; Z88.1 Allergy status to other antibiotic agents; Z68.42 Body mass index [BMI] 45.0-49.9, adult; Z93.6 Other artificial openings of urinary tract status; Z99.11 Dependence on respirator [ventilator] status; Z88.0 Allergy status to penicillin; Z79.84 Long term (current) use of oral hypoglycemic drugs
CPT/HCPCS: 36415; 36569; 36600; 70450; 71045; 74176; 76604; 76775; 80048; 80053; 80061; 80307; 81001; 82306; 82550; 82553; 82570; 82607; 82805; 82962; 83036; 83516; 83520; 83605; 83735; 83880; 84100; 84132; 84156; 84300; 84443; 84484; 85025; 85379; 85610; 85730; 86141; 86160; 86225; 86235; 86256; 87040; 87070; 87077; 87081; 87086; 87088; 87186; 87205; 87426; 87804; 92507; 92610; 93005; 93306; 93886; 93970; 94002; 94003; 94640; 94660; 96365; 96368; 96375; 97110; 97116; 97163; 97530; 99291; C9113; G0378; J0153; J1100; J1450; J1815; J1956; J2001; J2185; J2248; J2250; J2405; J2704; J3480; J3490; J7060

== ENCOUNTER 2025-02-10 15:06 | Inpatient (IN) | payer MEDICAID ==
[~2025-02-10] VITALS: Ht 160 cm; Wt 148.0 kg
[~2025-02-10 15:06] MED LIST changes: -CEFU500T43 PO; +CITA10TA5 PO; -DOXY-286 PO; +FURO20TA3 PO; +HYDR-4902 PO; +IBUP-1455 PO; -METF-370 PO; +METF-929 PO; -SEMA2INJ SC; +SEMA4INJ SC; +VARE1TAB12
--- NOTE | 2025-02-10 16:08 | DVH ---
INDICATION: sob cp TECHNIQUE: Frontal view of the chest. COMPARISON: XY CHEST PORTABLE on DOS: 03/22/24, XY CHEST PORTABLE on DOS: 03/20/24, XY CHEST PORTABLE o n DOS: 03/19/24, XY CHEST PORTABLE on DOS: 03/18/24, XY CHEST PORTABLE on DOS: 03/17/24 FINDINGS: . Cardiomegaly. There is no evidence of pleural disease. The lungs are clear. The bony structures of the chest are intact without fracture. IMPRESSION: Cardiomegaly with pulmonary edema.
[2025-02-10 16:20] LABS: Basophils # (auto) 0 10 ^3/uL (0-0.2); Basophils % (auto) 0.3 % (0.0-2.0); Eosinophils # (auto) 0.1 10 ^3/uL (0-0.8); Eosinophils % (auto) 1.3 % (0.0-7.0); Hemoglobin 14.9 g/dL (12.2-16.2); Lymphocytes % (auto) 22.3 % (10.0-50.0); Mean Corpuscular Hgb Conc. 31.8 g/dL (32.0-36.0); Monocytes # (auto) 0.6 10 ^3/uL (0-1.3); Monocytes % (auto) 7.2 % (0.0-12.0); Neutrophils # (auto) 6.1 10 ^3/uL (1.6-8.6); Neutrophils % (auto) 68.9 % (37.0-80.0); Nucleated Red Blood Cells % 0.2 %; Platelet Count (auto) 199 10^3/uL (140-450); Red Blood Cells 5.34 10^6/uL (4.0-5.20); Red Cell Distribution Width 15.8 % (11.8-14.3); White Blood Cell 8.9 10^3/uL (4.4-10.8)
[2025-02-10 16:30] LABS: Albumin 3.7 g/dL (3.2-4.8); Alkaline Phosphatase 80 U/L (46-116); Anion Gap 4 (5-15); Aspartate Aminotransferase 15 U/L (13-40); BUN/Creatinine Ratio 25.6 (10.0-20.0); Bilirubin, Total 0.7 mg/dL (0.2-1.0); Blood Urea Nitrogen 23 mg/dL (9-23); Calcium 9.7 mg/dL (8.7-10.4); Chloride 103 mmol/L (98-107); Potassium 4.6 mmol/L (3.5-5.1); Sodium 143 mmol/L (136-145); Total Protein 6.4 g/dL (5.7-8.2)
[2025-02-10 16:31] LABS: Alanine Aminotransferase < 9 U/L (7-40); Carbon Dioxide 36 mmol/L (20-31); Glucose 122 mg/dL (74-106)
[2025-02-10] MEDS: ALBUTEROL SULF 2.5 MG/0.5ML(0.5%) NEB SOLN ONE (17:33)
[2025-02-10] MEDS: IPRATROPIUM BROM 0.5 MG/2.5ML INH SOL ONE (17:33)
[2025-02-10 18:08] VITALS: PULSE 87; RESP 18; O2SAT 95
[2025-02-10] MEDS: FUROSEMIDE 40 MG/4 ML VIAL IV ONE (18:30)
[2025-02-10 18:38] VITALS: O2SAT 96
--- NOTE | 2025-02-10 18:38 | ED.PDOC ---
SOB-HPI HPI Comments 59y F who presents to the ED via EMS for chief complaint of shortness of breath. Pt states she has been having shortness of breath, upper chest pain, cough with associated clear sputum for the past 2 weeks and called EMS to due exacerbation of her symptoms. Pt states over the past few weeks, she has started to get increased swelling her lower extremities and abdominal area. Pt states she saw PCP a few weeks ago and states her Lasix were increased from 20 to 40 mg daily. Pt now in the ED, states she has sharp pain with inspiration around her neck, shoulders and diffusely across her chest. Per EMS, pt received 324 ASA, 0.4 nitro x 1 and they state her was a 1/10 upon arrival to the ED. Pt now in the ED, has stable vitals with noted 02 sat of 95% on 4 L via nc, BP of 114/66, rr 18, and heart rate of 87. Pt states she has history of COPD and CHF and is on 1.5-2 L home 02. Pt otherwise denies any other symptoms at this time. Chief Complaint: Shortness of Breath Time Seen by MD: 18:32 Primary Care Provider: ABELINO Reviewed notes: Nurses Notes, Manager Installation Notes Information Source: Patient Mode of Arrival: EMS Brought in by: EMS Past Medical History PAST MEDICAL HISTORY: CHF, COPD, DM, HTN, Kidney Stones Surgical History: Cholecystectomy, Hysterectomy [employer] History: Ovarian Cysts Family History Family History: Family hx of DM Social History Smoker: Cigarettes Alcohol: Denies ETOH Use Drugs: Denies Drug Use Lives In: Home Constitutional: denies: chills, diaphoresis, fatigue, fever, malaise, sweats, weakness, others EENTM: denies: blurred vision, double vision, ear bleeding, ear discharge, ear drainage, ear pain, ear ringing, eye pain, eye redness, hearing loss, mouth pain, mouth swelling, nasal discharge, nose bleeding, nose congestion, nose pain, photophobia, tearing, throat pain, throat swelling, voice changes, others Respiratory: reports: cough, shortness of breath; denies: hemoptysis, orthopnea, SOB at rest, SOB with excertion, stridor, wheezing, others Cardiovascular: reports: chest pain; denies: dizzy spells, diaphoresis, Dyspnea on exertion, edema, irregular heart beat, left arm pain, lightheadedness, palpitations, PND, syncope, others Gastrointestinal: denies: abdomen distended, abdominal pain, blood streaked bowels, constipated, diarrhea, dysphagia, difficulty swallowing, hematemesis, melena, nausea, poor appetite, poor fluid intake, rectal bleeding, rectal pain, vomiting, others Genitourinary: denies: abnormal vagina bleeding, burning, dyspareunia, dysuria, flank pain, frequency, hematuria, incontinence, pain, , vagina discharge, urgency, others Neurological: denies: dizziness, fainting, headache, left sided numbness, left sided weakness, numbness, paresthesia, pre-existing deficit, right sided numbness, right sided weakness, seizure, speech problems, tingling, tremors, weakness, others Musculoskeletal: denies: back pain, gout, joint pain, joint swelling, muscle pain, muscle stiffness, neck pain, others Integumetry: denies: bruises, change in color, change in hair/nails, dryness, laceration, lesions, lumps, rash, wounds, others Allergic/Immunocompromised: denies: Difficulty Healing, Frequent Infections, Hives, Itching, others Hematologic/Lymphatic: denies: anemia, blood clots, easy bleeding, easy bruising, swollen glands, others Endocrine: denies: excessive hunger, excessive sweating, excessive thirst, excessive urination, flushing, intolerance to cold, intolerance to heat, unexplained weight gain, unexplained weight loss, others Psychiatric: denies: anxiety, bipolar disorder, depression, hopeless, panic dis order, schizophrenia, sleepless, suicidal, others All Other Systems: Reviewed and Negative Physical Exam General Appearance: No Apparent Distress, Obese HEENT: PERRL/EOMI Neck: Full Range of Motion, Normal Inspection Respiratory: Decreased Breath Sounds, No Accessory Muscle Use, No Respiratory Distress, Rales Cardiovascular: No JVD, Regular Rate/Rhythm Breast Exam: Deferred Gastrointestinal: Non Tender, Soft Genitalia: Deferred Pelvic: Deferred Rectal: Deferred Extremities: Leg edema, Pedal edema, Swelling, Tender, Other (Bilateral lower extremity 3+ pitting edema and erythema to the mid leg area) Neurologic: Alert (Oriented x4), Normal Affect, Normal Mood, Other (Moves all extremities. No gross focal deficit.) Cerebellar Function: NOT DONE Reflexes: NOT DONE Skin: Dry, Normal Color, Warm Lymphatic: NOT DONE EKG EKG : Comments Sinus rhythm, rate 95, normal intervals, normal axis, possible RVH, inferior, anteroseptal and lateral T-wave inversion with ST depression Was a procedure done? Was a procedure done?: No Differential Dx Differential Diagnosis: CHF, COPD, Myocardial infarction, Pneumonia, Pulmonary Embolism, Respiratory Distress, Other (Lower extremity DVT) Comments acute coronary syndrome, influenza A and B, COVID X-Ray, Labs, Meds, VS Vital Signs Date Time Temp Pulse Resp B/P (MAP) Pulse Ox O2 Delivery O2 Flow Rate FiO2 02/10/25 20:07 89 23 97 Room Air* 0 21 02/10/25 19:30 98.1 89 23 144/74 (97) 96 98.1 02/10/25 18:38 18 96 Nasal Cannula* 4 36 02/10/25 18:08 87 18 95 Nasal Cannula* 4 36 02/10/25 17:36 98.8 87 18 114/66 (82) 95 98.8 02/10/25 17:34 95 Nasal Cannula* 4 36 02/10/25 15:20 98.4 97 18 129/73 (91) 91 02/10/25 15:09 95 Lab Test 02/10/25 19:00 02/10/25 17:24 02/10/25 15:57 Range/Units Lactic Acid Level 1.1 0.4-2.0 mmol/L Troponin I High Sensitivity 13 11 10 </=34 ng/L White Blood Count 8.9 4.4-10.8 10^3/uL Red Blood Count 5.34 H 4.0-5.20 10^6/uL Hemoglobin 14.9 12.2-16.2 g/dL Hematocrit 47.0 H 36.0-46.0 % Mean Corpuscular Volume 88.0 80.0-100.0 fL Mean Corpuscular Hemoglobin 28.0 28.0-32.0 pg Mean Corpuscular Hemoglobin Concent 31.8 L 32.0-36.0 g/dL Red Cell Distribution Width 15.8 H 11.8-14.3 % Platelet Count 199 140-450 10^3/uL Mean Platelet Volume 7.6 6.9-10.8 fL Neutrophils (%) (Auto) 68.9 37.0-80.0 % Lymphocytes (%) (Auto) 22.3 10.0-50.0 % Monocytes (%) (Auto) 7.2 0.0-12.0 % Eosinophils (%) (Auto) 1.3 0.0-7.0 % Basophils (%) (Auto) 0.3 0.0-2.0 % Neutrophils # (Auto) 6.1 1.6-8.6 10 ^3/uL Lymphocytes # (Auto) 2.0 0.4-5.4 10 ^3/uL Monocytes # (Auto) 0.6 0-1.3 10 ^3/uL Eosinophils # (Auto) 0.1 0-0.8 10 ^3/uL Basophils # (Auto) 0 0-0.2 10 ^3/uL Nucleated Red Blood Cells 0.2 % Sodium Level 143 136-145 mmol/L Potassium Level 4.6 3.5-5.1 mmol/L Chloride Level 103 98-107 mmol/L Carbon Dioxide Level 36 H 20-31 mmol/L Anion Gap 4 L 5-15 Blood Urea Nitrogen 23 9-23 mg/dL Creatinine 0.90 0.550-1.02 mg/dL Glomerular Filtration Rate Calc 73 >90 mL/min BUN/Creatinine Ratio 25.6 H 10.0-20.0 Serum Glucose 122 H 74-106 mg/dL Calcium Level 9.7 8.7-10.4 mg/dL Total Bilirubin 0.7 0.2-1.0 mg/dL Aspartate Amino Transferase (AST) 15 13-40 U/L Alanine Aminotransferase (ALT) < 9 7-40 U/L Alkaline Phosphatase 80 46-116 U/L B-Type Natriuretic Peptide 150.89 0-100 pg/mL Total Protein 6.4 5.7-8.2 g/dL Albumin 3.7 3.2-4.8 g/dL Current Medications Medications (Trade) Dose Ordered Sig/Chance Route Start Time Stop Time Status Last Admin Methylprednisolone Sodium Succinate (Solu Medrol) 125 mg ONCE ONCE IV 02/10/25 18:30 02/10/25 18:34 DC 02/10/25 20:17 Albuterol (Ventolin Medneb) 5 mg ONCE ONCE NEB 02/10/25 18:30 02/10/25 18:34 DC 02/10/25 18:39 Ipratropium [place] (Atrovent Medneb) 0.5 mg ONCE ONCE NEB 02/10/25 18:30 02/10/25 18:34 DC 02/10/25 18:39 [place] [id number] Ph: [phone] DIAGNOSTIC IMAGING Diagnostic Imaging Report : [id number] Signed PATIENT: BENI YANEZ ACCT: [id number] UNIT: [id number] : 1965 LOC: ER ROOM / BED: / AGE / SEX: 59 / F ADM STATUS: REG ER SERVICE 1523 ORDERING PHYSICIAN: JOSE ANTONIO MILLER MD PROCEDURE(s): CXRP - CHEST PORTABLE REASON: sob cp ORDER NUMBER(s): [id number], ACCESSION NUMBER(s): [id number] INDICATION: sob cp TECHNIQUE: Frontal view of the chest. COMPARISON: XY CHEST PORTABLE on DOS: 03/22/24, XY CHEST PORTABLE on DOS: 03/20/24, XY CHEST PORTABLE on DOS: 03/19/24, XY CHEST PORTABLE on DOS: 03/18/24, XY CHEST PORTABLE on DOS: 03/17/24 FINDINGS: . Cardiomegaly. There is no evidence of pleural disease. The lungs are clear. The bony structures of the chest are intact without fracture. IMPRESSION: Cardiomegaly with pulmonary edema. ATED BY: TYESHA MCHUGH MD DICTATED DATE/TIME: 02/10/25 1605 SIGNED BY: TYESHA MCHUGH MD SIGNED DATE/TIME: 02/10/25 1605 CC: X-Ray, Labs, Meds, VS Comment 59-year-old female with a history of hypertension, diabetes, COPD on home O2 and CHF presenting with chest pain, shortness a breath and worsening extremity edema Vitals remarkable for oxygen saturation 91% on 3 L nasal cannula Exam remarkable for rales, productive sounding cough and 3+ pitting edema of the lower extremities Rhythm strip independently interpreted by me: Sinus rhythm, rate 95, no ectopy. Chest x-ray IMPRESSION: Cardiomegaly with pulmonary edema. Bilateral lower extremity ultrasound: Impression: No evidence of right or left femoropopliteal venous thrombosis. CBC unremarkable, metabolic panel remarkable for CO2 36, BNP 150.89, troponin negative x2, lactate pending Patient treated with the following in the ED: Albuterol 5 mg/Atrovent 0.5 mg nebulized, Solu-Medrol 125 mg IV, Lasix 40 mg IV On re-evaluation, patient is resting comfortably with stable vitals on 4 L nasal cannula. She is not in respiratory distress. Plan is to admit the patient for diuresis and respiratory support as needed. Time of 1ST Reevaluation: 19:05 Reevaluation 1ST: Unchanged Time of 2ND Reevaluation: 19:29 Reevaluation 2ND: Improved Patient Education/Counseling: Diagnosis, Treatment Family Education/Counseling: No Family Present Additional Information -Reviewed patient's previous visit(s): - The following tests were ordered, and results were reviewed by me: trop x3, cbc, cmp, bnp, chest x-ray, ekg x1, ua, lactic acid - Additional information was gathered from interviewing the following independent Historian: patient and EMS - I reviewed and agreed with the following test results read by other provider: radiologist - I discussed treatments and results with medical personnel and: patient Comprehensive systems review obtained and negative except for what is stated in the HPI. Departure 1 Departure Time of Disposition: 19:30 Impression: Primary Impression: [id number] respiratory failure Qualified Codes: J96.20 - Acute and chronic respiratory failure, unspecified whether with hypoxia or hypercapnia Additional Impressions: CHF exacerbation Qualified Codes: I50.9 - Heart failure, unspecified COPD exacerbation Disposition: ADMITTED INPATIENT Admit to: Tele Condition: Guarded Critical Care Note Critical Care Time?: No Stability Stability form required: No Heart Score Heart Score: Heart Score Response (Comments) Value History Slightly Suspicious [address]-Deviation 2 Age 45-64 1 Risk Factors >3 or Hx ASHD 2 Troponin Normal limit 0 Total 5 I personally scribed for JOSE ANTON[facility]ILLER MD ([facility] on 02/10/25 at 18:38. Electronically submitted by Boaz Perez ([email or web address]). JOSE ANTONIO MILLER MD Feb 10, 2025 18:38
[2025-02-10] MEDS: IPRATROPIUM BROM 0.5 MG/2.5ML INH SOL NEB ONE (18:39)
[2025-02-10] MEDS: ALBUTEROL SULF 2.5 MG/0.5ML(0.5%) NEB SOLN NEB ONE (18:39)
--- NOTE | 2025-02-10 19:15 | DVHHP2 ---
Admitting Diagnosis: Shortness of breaths History of Present Illness 59y F who presents to the ED via EMS for chief complaint of shortness of breath. Pt states she has been having shortness of breath, chest pains, cough with associated clear sputum for the past 2 weeks and called EMS to due exacerbation of her symptoms. Pt states over the past few weeks, she has started to get increased swelling diffusely across her chest and extremities. Pt states she saw PCP a few weeks prior and states her Lasix were increased from 20 to 40. Pt now in the ED, states she has pain around her neck, shoulder and diffusely across her chest. Per EKG, pt received 324 ASA, 0.4 nitro x 1 and they state her was a 1/10 upon arrival to the ED. Pt now in the ED, has stable vitals with noted 02 sat of 95% on 4 L via nc, BP of 114/66, rr 18, and heart rate of 87. Pt states she has history of COPD and CHF and is on home 02. Pt otherwise denies any other symptoms at this time. Chief Complaint: Shortness of Breath Time Seen by MD: 18:32 Primary Care Provider: ABELINO Reviewed notes: Nurses Notes, Windshield Technician Notes Information Source: Patient Mode of Arrival: EMS Brought in by: EMS Past Medical History Past Medical History PAST MEDICAL HISTORY: CHF, DM, HTN, Kidney Stones Surgical History: Cholecystectomy, Hysterectomy [employer]ATE[employer] History: Ovarian Cysts Family History Family History: Family hx of DM Social History Smoker: Cigarettes Alcohol: Denies ETOH Use Drugs: Denies Drug Use Lives In: Home Patient Family History: Arthritis G8 MOTHER Diabetes mellitus G8 FATHER FH: lupus G8 MOTHER Allergies: Coded Allergies: Lexa (Verified Allergy, Unknown, 04/04/21) Vancomycin (Verified Allergy, Unknown, 04/03/21) Home Meds Reported Medications Varenicline Tartrate (Varenicline Starti... 0.5 mg X 11 & 1 mg X 42) 1 Tab Tab Use as directed. 03/02/24 Furosemide (Furosemide) 20 Mg Tab, 1 TAB PO DAILY 03/02/24 Hydrocodone-Acetaminophen (Hydrocodone Bitartrate/AC 5-325 mg) 1 Tab Tab, 1 TAB PO Q8HR PRN 03/02/24 Ibuprofen Micronized (Ibuprofen) 800 Mg Tab, 1 TAB PO Q12HR PRN 03/02/24 Citalopram Hydrobromide (Citalopram Hydrobromide) 10 Mg Tab, 1 TAB PO DAILY 03/02/24 Semaglutide (Ozempic) 4 Mg/3 Ml Inj, 1 MG SC QWEEKLY 03/02/24 Metformin HCl (Metformin Hydrochloride) 1,000 Mg Tab, 1 TAB PO BID 03/02/24 Gabapentin (Gabapentin) 600 Mg Tab, 600 MG PO TID for peripheral neuropathy for 30 Days, MG 04/03/21 Current Medications Current Medications Medications (Trade) Dose Ordered Sig/Chance Route PRN Reason Start Time Stop Time Status Last Admin Methylprednisolone Sodium Succinate (Solu Medrol) 40 mg Q8HR IV 02/10/25 22:00 Albuterol (Ventolin Medneb) 2.5 mg Q4HPRN PRN NEB SHORTNESS OF BREATH 02/10/25 20:00 Ipratropium [place] (Atrovent Medneb) 0.5 mg Q4HPRN PRN NEB SHORTNESS OF BREATH 02/10/25 20:00 Famotidine (Pepcid Injection) 20 mg Q12HR IV 02/10/25 22:00 Furosemide (Lasix Injection) 40 mg DAILY IV 02/11/25 10:00 Diagnostic Test (Pha) (Accu-Chek Comfort Curve T) 1 strip ACHS 02/10/25 22:00 Insulin Human Regular (InsuLIN R) ACHS SC 02/10/25 22:00 Dextrose 50 ml UD PRN IV Blood Sugar LESS THAN 60 02/10/25 20:00 Sodium Chloride (Saline Lock Ns) 10 ml Q8HR IV 02/10/25 22:00 Acetaminophen/ Hydrocodone Bitart ([place] 5/325MG Tab) 1 tab Q4HP PRN PO MODERATE PAIN (4-6 PAIN SCALE) 02/10/25 20:00 Ondansetron HCl (Zofran) 4 mg Q4HP PRN IV NAUSEA / VOMITING 02/10/25 20:00 Docusate Sodium (Colace Capsule) 100 mg BIDPRN PRN PO FOR CONSTIPATION 02/10/25 20:00 Acetaminophen (Tylenol Tablet) 650 mg Q6HP PRN PO PAIN SCALE 1-3 OR TEMP>100.4 02/10/25 20:00 Carvedilol (Coreg Tablet) 3.125 mg Q12HR PO 02/10/25 22:00 Vital Signs Vital Signs Date Time Temp Pulse Resp B/P (MAP) Pulse Ox O2 Delivery O2 Flow Rate FiO2 02/10/25 20:07 89 23 97 Room Air* 0 21 02/10/25 19:30 98.1 144/74 (97) 98.1 Physical Exam Generally 59 years old woman, morbidly obese, sitting on bed. No apparent distress on nasal cannula HEENT-atraumatic normocephalic Heart-regular rate and rhythm Lungs bilateral wheezing posterior lung malagon Abdomen soft, nondistended, nontender Musculoskeletal-pitting edema no cyanosis Neuro-AO x3, no focal deficits Results Labs Test 02/10/25 19:00 02/10/25 15:57 Range/Units Lactic Acid Level 1.1 0.4-2.0 mmol/L Troponin I High Sensitivity 13 </=34 ng/L White Blood Count 8.9 4.4-10.8 10^3/uL Red Blood Count 5.34 H 4.0-5.20 10^6/uL Hemoglobin 14.9 12.2-16.2 g/dL Hematocrit 47.0 H 36.0-46.0 % Mean Corpuscular Volume 88.0 80.0-100.0 fL Mean Corpuscular Hemoglobin 28.0 28.0-32.0 pg Mean Corpuscular Hemoglobin Concent 31.8 L 32.0-36.0 g/dL Red Cell Distribution Width 15.8 H 11.8-14.3 % Platelet Count 199 140-450 10^3/uL Mean Platelet Volume 7.6 6.9-10.8 fL Neutrophils (%) (Auto) 68.9 37.0-80.0 % Lymphocytes (%) (Auto) 22.3 10.0-50.0 % Monocytes (%) (Auto) 7.2 0.0-12.0 % Eosinophils (%) (Auto) 1.3 0.0-7.0 % Basophils (%) (Auto) 0.3 0.0-2.0 % Neutrophils # (Auto) 6.1 1.6-8.6 10 ^3/uL Lymphocytes # (Auto) 2.0 0.4-5.4 10 ^3/uL Monocytes # (Auto) 0.6 0-1.3 10 ^3/uL Eosinophils # (Auto) 0.1 0-0.8 10 ^3/uL Basophils # (Auto) 0 0-0.2 10 ^3/uL Nucleated Red Blood Cells 0.2 % Sodium Level 143 136-145 mmol/L Potassium Level 4.6 3.5-5.1 mmol/L Chloride Level 103 98-107 mmol/L Carbon Dioxide Level 36 H 20-31 mmol/L Anion Gap 4 L 5-15 Blood Urea Nitrogen 23 9-23 mg/dL Creatinine 0.90 0.550-1.02 mg/dL Glomerular Filtration Rate Calc 73 >90 mL/min BUN/Creatinine Ratio 25.6 H 10.0-20.0 Serum Glucose 122 H 74-106 mg/dL Calcium Level 9.7 8.7-10.4 mg/dL Total Bilirubin 0.7 0.2-1.0 mg/dL Aspartate Amino Transferase (AST) 15 13-40 U/L Alanine Aminotransferase (ALT) < 9 7-40 U/L Alkaline Phosphatase 80 46-116 U/L B-Type Natriuretic Peptide 150.89 0-100 pg/mL Total Protein 6.4 5.7-8.2 g/dL Albumin 3.7 3.2-4.8 g/dL Primary Diagnosis Acute hypoxic respiratory failure likely due to pneumonia, COPD, CHF Bilateral lower extremity edema Plan Chest x-ray is clear DVT study negative Start Solu-Medrol 60 mg q.6 Duo nebs q.6 standing Positive sputum production Check sputum Ceftriaxone 1 g daily, azithromycin 500 mg daily Check procalcitonin IV Lasix 40 mg b.i.d. Check echo of the heart Daily weight Strict in and out Fluid restriction Potassium greater than four, magnesium greater than two Cardiology consult saturation greater than 92% Full code Cardiac diet Lovenox for DVT prophylaxis PPI for GI prophylaxis Plan discussed with: Patient, Son Problems List: (1) Pneumonia (2) Acute hypoxic respiratory failure (3) CHF exacerbation Status: Acute (4) COPD exacerbation Status: Acute Date of Service: Feb 10, 2025 Billing Provider: OWEN BRYAN MD Common Visit Codes: 47152-TNLITRC INP/OBS CARE (HIGH) OWEN BRYAN MD Feb 10, 2025 19:15
--- NOTE | 2025-02-10 19:48 | DVH ---
Bilateral lower extremity venous duplex Clinical History: edema Comparison: US BILAT LOWER DVT on DOS: 03/01/24 Technique: Duplex Doppler evaluation of the deep venous systems of both lower extremities from the common femora l veins to the popliteal veins including color Doppler and spectral/pulsed waveform analysis was perf ormed. Findings: RIGHT SIDE: The common femoral vein demonstrates appropriate compressibility and waveform variability. There is compressibility/patency of the great saphenous vein at the proximal thigh. The femoral vein demonstrates appropriate compressibility and waveform variability. The deep femoral vein demonstrates appropriate compressibility and waveform variability. The popliteal vein demonstrates appropriate compressibility and waveform variability. There is normal compressibility at the tibioperoneal trunk. LEFT SIDE: The common femoral vein demonstrates appropriate compressibility and waveform variability. There is compressibility/patency of the great saphenous vein at the proximal thigh. The femoral vein demonstrates appropriate compressibility and waveform variability. The deep femoral vein demonstrates appropriate compressibility and waveform variability. The popliteal vein demonstrates appropriate compressibility and waveform variability. There is normal compressibility at the tibioperoneal trunk. Impression: No evidence of right or left femoropopliteal venous thrombosis.
[2025-02-10] MEDS ORDERED: DEXTROSE (50%) 50ML SYRG IV PRN (20:00)
[2025-02-10] MEDS ORDERED: ONDANSETRON HCL 4 MG/2 ML VIAL IV PRN ×2 (20:00→20:30)
[2025-02-10] MEDS ORDERED: DOCUSATE SOD 100 MG CAP PO PRN ×2 (20:00→20:30)
[2025-02-10] MEDS ORDERED: ACETAMINOPHEN 325 MG TAB PO PRN ×2 (20:00→20:30)
[2025-02-10] MEDS ORDERED: HYDROcodone-ACET 5/325MG TAB PO PRN (20:00)
[2025-02-10 20:07] VITALS: PULSE 89; RESP 23; O2SAT 97
[2025-02-10] MEDS: methylPREDNISolone SOD SUCC 125 MG/2 ML VL IV ONE (20:17)
[2025-02-10] MEDS ORDERED: MORPHINE SULFATE INJ 2 MG/ml SYRG IV PRN (20:30)
[2025-02-10] MEDS: FUROSEMIDE 40 MG/4 ML VIAL IV SCH (20:30)
[2025-02-10] MEDS: cefTRIAXone 1GM/50ML D5W 50 ML IV SCH (20:41)
[2025-02-10] MEDS: AZITHROMYCIN 500MG/ 250ML 250 ML IV SCH (21:11)
[2025-02-10] MEDS: methylPREDNISolone SOD SUCC 125 MG/2 ML VL IV SCH (21:25)
[2025-02-10] MEDS: SODIUM CHLOR 0.9% PF (SALINE LOCK) 10ML VIAL/SYR IV SCH (21:48)
[2025-02-10] MEDS: CARVEDILOL 3.125 MG TAB PO SCH (21:57)
[2025-02-10] MEDS: FAMOTIDINE (10MG/ML) 2ML VL IV SCH (21:57)
[2025-02-10] MEDS: InsuLIN REG 1unit/0.01ml Soln (100units/ml) SC SCH (21:57)
[2025-02-10 21:58] VITALS: BP 144/74; PULSE 92; RESP 19; O2SAT 96
[2025-02-10] MEDS: ACCU-CHEK COMFORT CURVE STRIP VI SCH (21:58)
[2025-02-10] MEDS ORDERED: SODIUM CHLOR 0.9% PF (SALINE LOCK) 10ML VIAL/SYR IV SCH (22:00)
[2025-02-10 22:44] LABS: Urine Bacteria FEW /hpf (None Seen); Urine Blood 1+ /uL (Negative); Urine Clarity Turbid (Clear); Urine Color Yellow (Yellow); Urine Mucus FEW (None Seen); Urine Protein, UAD 1+ (Negative); Urine Specific Gravity 1.028 (1.001-1.035); Urine Squamous Epithelial Cell MOD /hpf (<5); Urine Urobilinogen 3 mg/dL (Negative); Urine WBC 2 /HPF (0-5); Urine pH 5.5 (5.0-9.0)
[2025-02-10 23:24] VITALS: BP 143/76; PULSE 90; RESP 18; TEMP 98.3; O2SAT 95
[2025-02-10 23:37] VITALS: BP 143/76; PULSE 90; RESP 18; TEMP 98.3; O2SAT 95
--- NOTE | 2025-02-10 23:53 | DVHINCON2 ---
Date of service: Feb 10, 2025 Referring Physician Juanito Reason for Consultation CHF exacerbation History of Present Illness This is a 59 year old female with a PMH of CHF, COPD, DM, HTN who was brought in by EMS due to complaints of worsening shortness of breath. Patient states she has been having shortness of breath, chest pains, cough with associated clear sputum for the past 2 weeks and called EMS to due exacerbation of her symptoms. EMS administered 324 ASA, 0.4 nitro x 1. Patient states over the past few weeks, she has started to get increased swelling her lower extremities and abdominal area. Patient saw PCP a few weeks ago and states her Lasix was increased from 20 to 40 mg daily. EKG is NSR at 95. Chest x-ray shows cardiomegaly with pulmonary edema. Bilateral lower extremity venous duplex is negative for DVT. Troponin is negative x3. BNP 150.89. Patient was admitted to the hospital. I am asked to consult on this patient. Family History: Arthritis G8 MOTHER Diabetes mellitus G8 FATHER FH: lupus G8 MOTHER Allergies: Coded Allergies: Bath (Verified Allergy, Unknown, 04/04/21) Vancomycin (Verified Allergy, Unknown, 04/03/21) Home Meds Reported Medications Varenicline Tartrate (Varenicline Starti... 0.5 mg X 11 & 1 mg X 42) 1 Tab Tab Use as directed. 03/02/24 Furosemide (Furosemide) 20 Mg Tab, 1 TAB PO DAILY 03/02/24 Hydrocodone-Acetaminophen (Hydrocodone Bitartrate/AC 5-325 mg) 1 Tab Tab, 1 TAB PO Q8HR PRN 03/02/24 Ibuprofen Micronized (Ibuprofen) 800 Mg Tab, 1 TAB PO Q12HR PRN 03/02/24 Citalopram Hydrobromide (Citalopram Hydrobromide) 10 Mg Tab, 1 TAB PO DAILY 03/02/24 Semaglutide (Ozempic) 4 Mg/3 Ml Inj, 1 MG SC QWEEKLY 03/02/24 Metformin HCl (Metformin Hydrochloride) 1,000 Mg Tab, 1 TAB PO BID 03/02/24 Gabapentin (Gabapentin) 600 Mg Tab, 600 MG PO TID for peripheral neuropathy for 30 Days, MG 04/03/21 Current Medications Current Medications Medications (Trade) Dose Ordered Sig/Chance Route PRN Reason Start Time Stop Time Status Last Admin Methylprednisolone Sodium Succinate (Solu Medrol) 40 mg Q8HR IV 02/10/25 22:00 Albuterol (Ventolin Medneb) 2.5 mg Q4HPRN PRN NEB SHORTNESS OF BREATH 02/10/25 20:00 Ipratropium [place] (Atrovent Medneb) 0.5 mg Q4HPRN PRN NEB SHORTNESS OF BREATH 02/10/25 20:00 Famotidine (Pepcid Injection) 20 mg Q12HR IV 02/10/25 22:00 02/10/25 21:57 Furosemide (Lasix Injection) 40 mg DAILY IV 02/11/25 10:00 02/10/25 20:23 DC Diagnostic Test (Pha) (Accu-Chek Comfort Curve T) 1 strip ACHS 02/10/25 22:00 02/10/25 21:58 Insulin Human Regular (InsuLIN R) ACHS SC 02/10/25 22:00 02/10/25 21:57 Dextrose 50 ml UD PRN IV Blood Sugar LESS THAN 60 02/10/25 20:00 Sodium Chloride (Saline Lock Ns) 10 ml Q8HR IV 02/10/25 22:00 02/10/25 20:35 DC Acetaminophen/ Hydrocodone Bitart ([place] 5/325MG Tab) 1 tab Q4HP PRN PO MODERATE PAIN (4-6 PAIN SCALE) 02/10/25 20:00 02/10/25 20:35 DC Ondansetron HCl (Zofran) 4 mg Q4HP PRN IV NAUSEA / VOMITING 02/10/25 20:00 02/10/25 20:35 DC Docusate Sodium (Colace Capsule) 100 mg BIDPRN PRN PO FOR CONSTIPATION 02/10/25 20:00 02/10/25 20:35 DC Acetaminophen (Tylenol Tablet) 650 mg Q6HP PRN PO PAIN SCALE 1-3 OR TEMP>100.4 02/10/25 20:00 02/10/25 20:35 DC Carvedilol (Coreg Tablet) 3.125 mg Q12HR PO 02/10/25 22:00 02/10/25 21:57 Furosemide (Lasix Injection) 40 mg BIDD IV 02/10/25 20:30 Sodium Chloride (Saline Lock Ns) 10 ml Q8HR IV 02/10/25 22:00 02/10/25 21:48 Docusate Sodium (Colace Capsule) 100 mg BIDPRN PRN PO FOR CONSTIPATION 02/10/25 20:30 Acetaminophen (Tylenol Tablet) 650 mg Q6HP PRN PO PAIN SCALE 1-3 OR TEMP>100.4 02/10/25 20:30 Acetaminophen/ Hydrocodone Bitart ([place] 5/325MG Tab) 1 tab Q4HP PRN PO MODERATE PAIN (4-6 PAIN SCALE) 02/10/25 20:30 Ondansetron HCl (Zofran) 4 mg Q4HP PRN IV NAUSEA / VOMITING 02/10/25 20:30 Morphine Sulfate 2 mg Q4HPRN PRN IV SEVERE PAIN (7-10 PAIN SCALE) 02/10/25 20:30 Enoxaparin Sodium (Lovenox) 40 mg DAILY SC 02/11/25 10:00 Ceftriaxone Sodium 50 ml @ 100 mls/hr DAILY IV 02/10/25 20:30 02/10/25 20:41 Azithromycin 250 ml @ 125 mls/hr DAILY IV 02/10/25 20:30 02/10/25 21:11 Review of Systems Constitutional: denies: chills, diaphoresis, fatigue, fever, malaise, sweats, weakness, others EENTM: denies: blurred vision, double vision, ear bleeding, ear discharge, ear drainage, ear pain, ear ringing, eye pain, eye redness, hearing loss, mouth pa in, mouth swelling, nasal discharge, nose bleeding, nose congestion, nose pain, photophobia, tearing, throat pain, throat swelling, voice changes, others Respiratory: reports: cough, shortness of breath; denies: hemoptysis, orthopnea, SOB at rest, SOB with excertion, stridor, wheezing, others Cardiovascular: reports: chest pain; denies: dizzy spells, diaphoresis, Dyspnea on exertion, edema, irregular heart beat, left arm pain, lightheadedness, palpitations, PND, syncope, others Gastrointestinal: denies: abdomen distended, abdominal pain, blood streaked bowels, constipated, diarrhea, dysphagia, difficulty swallowing, hematemesis, me cary, nausea, poor appetite, poor fluid intake, rectal bleeding, rectal pain, vomiting, others Genitourinary: denies: abnormal vagina bleeding, burning, dyspareunia, dysuria, flank pain, frequency, hematuria, incontinence, pain, , vagina discharge, urgency, others Neurological: denies: dizziness, fainting, headache, left sided numbness, left sided weakness, numbness, paresthesia, pre-existing deficit, right sided numbness, right sided weakness, seizure, speech problems, tingling, tremors, weakness, others Musculoskeletal: denies: back pain, gout, joint pain, joint swelling, muscle pain, muscle stiffness, neck pain, others Integumetry: denies: bruises, change in color, change in hair/nails, dryness, laceration, lesions, lumps, rash, wounds, others Allergic/Immunocompromised: denies: Difficulty Healing, Frequent Infections, Hives, Itching, others Hematologic/Lymphatic: denies: anemia, blood clots, easy bleeding, easy bruising, swollen glands, others Endocrine: denies: excessive hunger, excessive sweating, excessive thirst, excessive urination, flushing, intolerance to cold, intolerance to heat, unexplained weight gain, unexplained weight loss, others Psychiatric: denies: anxiety, bipolar disorder, depression, hopeless, panic disorder, schizophrenia, sleepless, suicidal, others All Other Systems: Reviewed and Negative Vital Signs Vital Signs Date Time Temp Pulse Resp B/P (MAP) Pulse Ox O2 Delivery O2 Flow Rate FiO2 02/10/25 21:58 92 19 144/74 96 4.0 36 02/10/25 20:07 Room Air* 02/10/25 19:30 98.1 98.1 Physical Exam GENERAL: Awake, alert, oriented. Obese LUNGS: Bilateral wheezing posterior lung malagon . CARDIOVASCULAR: Heart sounds are good. ABDOMEN: Soft. EXT: Bilateral lower extremity edema. Labs/Diagnostic Data Labs Test 02/10/25 22:26 02/10/25 21:47 02/10/25 19:00 02/10/25 15:57 Range/Units POC Glucose 156 H 70-106 mg/dl Lactic Acid Level 1.1 0.4-2.0 mmol/L Troponin I High Sensitivity 13 </=34 ng/L White Blood Count 8.9 4.4-10.8 10^3/uL Red Blood Count 5.34 H 4.0-5.20 10^6/uL Hemoglobin 14.9 12.2-16.2 g/dL Hematocrit 47.0 H 36.0-46.0 % Mean Corpuscular Volume 88.0 80.0-100.0 fL Mean Corpuscular Hemoglobin 28.0 28.0-32.0 pg Mean Corpuscular Hemoglobin Concent 31.8 L 32.0-36.0 g/dL Red Cell Distribution Width 15.8 H 11.8-14.3 % Platelet Count 199 140-450 10^3/uL Mean Platelet Volume 7.6 6.9-10.8 fL Neutrophils (%) (Auto) 68.9 37.0-80.0 % Lymphocytes (%) (Auto) 22.3 10.0-50.0 % Monocytes (%) (Auto) 7.2 0.0-12.0 % Eosinophils (%) (Auto) 1.3 0.0-7.0 % Basophils (%) (Auto) 0.3 0.0-2.0 % Neutrophils # (Auto) 6.1 1.6-8.6 10 ^3/uL Lymphocytes # (Auto) 2.0 0.4-5.4 10 ^3/uL Monocytes # (Auto) 0.6 0-1.3 10 ^3/uL Eosinophils # (Auto) 0.1 0-0.8 10 ^3/uL Basophils # (Auto) 0 0-0.2 10 ^3/uL Nucleated Red Blood Cells 0.2 % Sodium Level 143 136-145 mmol/L Potassium Level 4.6 3.5-5.1 mmol/L Chloride Level 103 98-107 mmol/L Carbon Dioxide Level 36 H 20-31 mmol/L Anion Gap 4 L 5-15 Blood Urea Nitrogen 23 9-23 mg/dL Creatinine 0.90 0.550-1.02 mg/dL Glomerular Filtration Rate Calc 73 >90 mL/min BUN/Creatinine Ratio 25.6 H 10.0-20.0 Serum Glucose 122 H 74-106 mg/dL Calcium Level 9.7 8.7-10.4 mg/dL Total Bilirubin 0.7 0.2-1.0 mg/dL Aspartate Amino Transferase (AST) 15 13-40 U/L Alanine Aminotransferase (ALT) < 9 7-40 U/L Alkaline Phosphatase 80 46-116 U/L B-Type Natriuretic Peptide 150.89 0-100 pg/mL Total Protein 6.4 5.7-8.2 g/dL Albumin 3.7 3.2-4.8 g/dL Assessment Pneumonia. Acute hypoxic respiratory failure. CHF exacerbation. COPD exacerbation. Plan/Recommendation I agree with your ongoing assessment and care of plan. Telemetry reviewed. Echocardiogram. Morphine and [place] for pain management. IV antibiotics as ordered. Coreg. DVT prophylactics. Diuretics with Lasix. Additional plan as per the hospital course. A total of 45 minutes was spent reviewing the patient record, examining the patient, making a diagnostic and therapeutic plan, discussing this plan with medical personnel, following up on diagnostic studies and following the patient for clinical stability excluding any and all procedures. At least 50% of this time was spent in direct, [id number] contact. Plan discussed with: Patient SCHUYLER PLUMMER MD Feb 10, 2025 22:51
[2025-02-11] VITALS (14 sets, daily range): BP systolic 110–170; BP diastolic 41–83; PULSE 83–96; RESP 18–20; TEMP 97.8–98.7; O2SAT 92–100
[2025-02-11] MEDS: ALBUTEROL SULF 2.5 MG/0.5ML(0.5%) NEB SOLN NEB PRN (01:47)
[2025-02-11] MEDS: IPRATROPIUM BROM 0.5 MG/2.5ML INH SOL NEB PRN (01:47)
[2025-02-11 05:58] LABS: Basophils # (auto) 0 10 ^3/uL (0-0.2); Basophils % (auto) 0.2 % (0.0-2.0); Eosinophils # (auto) 0 10 ^3/uL (0-0.8); Eosinophils % (auto) 0.1 % (0.0-7.0); Hematocrit 47.1 % (36.0-46.0); Hemoglobin 15.2 g/dL (12.2-16.2); Lymphocytes # (auto) 0.9 10 ^3/uL (0.4-5.4); Lymphocytes % (auto) 10.8 % (10.0-50.0); Mean Corpuscular Hemoglobin 28.3 pg (28.0-32.0); Mean Corpuscular Hgb Conc. 32.3 g/dL (32.0-36.0); Mean Corpuscular Volume 87.8 fL (80.0-100.0); Monocytes # (auto) 0.1 10 ^3/uL (0-1.3); Monocytes % (auto) 0.8 % (0.0-12.0); Neutrophils % (auto) 88.1 % (37.0-80.0); Nucleated Red Blood Cells % 0.1 %; Platelet Count (auto) 186 10^3/uL (140-450); Red Blood Cells 5.36 10^6/uL (4.0-5.20); Red Cell Distribution Width 15.8 % (11.8-14.3)
[2025-02-11 06:15] LABS: Albumin 3.9 g/dL (3.2-4.8); Alkaline Phosphatase 84 U/L (46-116); Anion Gap 7 (5-15); Aspartate Aminotransferase 15 U/L (13-40); Bilirubin, Total 0.7 mg/dL (0.2-1.0); Blood Urea Nitrogen 20 mg/dL (9-23); Calcium 9.4 mg/dL (8.7-10.4); Chloride 102 mmol/L (98-107); Potassium 4.9 mmol/L (3.5-5.1); Sodium 140 mmol/L (136-145); Total Protein 7.1 g/dL (5.7-8.2)
[2025-02-11 06:19] LABS: Alanine Aminotransferase < 9 U/L (7-40); Carbon Dioxide 31 mmol/L (20-31); Glucose 201 mg/dL (74-106)
[2025-02-11] MEDS: HYDROcodone-ACET 5/325MG TAB PO PRN (06:20)
[2025-02-11] MEDS ORDERED: FUROSEMIDE 40 MG/4 ML VIAL IV SCH (10:00)
[2025-02-11] MEDS: ENOXAPARIN SOD 40 MG/0.4 ML SYRINGE SC SCH (10:51)
[2025-02-11 12:01] LABS: COVID19 ANTIGEN SOFIA FIA NEGATIVE (NEGATIVE); Rapid Influenza A Negative (Negative); Rapid Influenza B Negative (Negative)
--- NOTE | 2025-02-11 13:01 | ECG ---
[facility] Test Date: 2025-02-10 Test Time: 15:09:10 Pat Name: BENI YANEZ Department: ER Room: 0283T Gender: F Vegetable Inspector: WILFREDO : 1965 Requested By: JOSE ANTONIO MCKEON Order Number: [id number] Reading MD: Tim Houser Measurements Intervals [place] Rate: 95 P: 69 PA: 128 QRS: 117 QRSD: 98 T: -56 QT: 349 QTc: 439 Interpretive Statements Sinus rhythm Low voltage, precordial leads Probable RVH w/ secondary repol abnormality Baseline wander in lead(s) V3 Electronically Signed On 02-12-2025 19:12:03 PDT by Tim Houser Please click the below link to view image of tracing.
[2025-02-11 13:03] LABS: INR 1.14 (0.9-1.15); Partial Thromboplastin Time 25.6 SEC (24.5-34.5); Prothrombin Time 11.9 sec (9.3-11.8)
--- NOTE | 2025-02-11 14:01 | DVHINCON2 ---
Date of Service if different f: Feb 11, 2025 Time of Service: 13:38 Consultation ([facility]) Consulting Physician: RACHEL JEFFRIES MD Labs Laboratory Tests Test 02/10/25 15:57 02/10/25 19:00 02/10/25 22:26 02/11/25 05:36 B-Type Natriuretic Peptide 150.89 pg/mL (0-100) Lactic Acid Level 1.1 mmol/L (0.4-2.0) Troponin I High Sensitivity 13 ng/L (</=34) Urine Color Yellow (Yellow) Urine Clarity Turbid (Clear) Urine pH 5.5 (5.0-9.0) Urine Specific [place] 1.028 (1.001-1.035) Urine Protein 1+ (Negative) Urine Ketones Negative (Negative) Urine Blood 1+ /uL (Negative) Urine Nitrite Negative (Negative) Urine Bilirubin Negative (Negative) Urine Urobilinogen 3 mg/dL (Negative) Urine Leukocyte Esterase Negative /uL (Negative) Urine RBC 7 /hpf (0 - 4) Urine Microscopic WBC 2 /HPF (0-5) Urine Squamous Epithelial Cells Mod /hpf (<5) Urine Bacteria Few /hpf (None Seen) Urine Mucus Few (None Seen) Urine Glucose Trace mg/dL (Normal) White Blood Count 8.0 10^3/uL (4.4-10.8) Red Blood Count 5.36 10^6/uL (4.0-5.20) Hemoglobin 15.2 g/dL (12.2-16.2) Hematocrit 47.1 % (36.0-46.0) Mean Corpuscular Volume 87.8 fL (80.0-100.0) Mean Corpuscular Hemoglobin 28.3 pg (28.0-32.0) Mean Corpuscular Hemoglobin Concent 32.3 g/dL (32.0-36.0) Red Cell Distribution Width 15.8 % (11.8-14.3) Platelet Count 186 10^3/uL (140-450) Mean Platelet Volume 7.9 fL (6.9-10.8) Neutrophils (%) (Auto) 88.1 % (37.0-80.0) Lymphocytes (%) (Auto) 10.8 % (10.0-50.0) Monocytes (%) (Auto) 0.8 % (0.0-12.0) Eosinophils (%) (Auto) 0.1 % (0.0-7.0) Basophils (%) (Auto) 0.2 % (0.0-2.0) Neutrophils # (Auto) 7.0 10 ^3/uL (1.6-8.6) Lymphocytes # (Auto) 0.9 10 ^3/uL (0.4-5.4) Monocytes # (Auto) 0.1 10 ^3/uL (0-1.3) Eosinophils # (Auto) 0 10 ^3/uL (0-0.8) Basophils # (Auto) 0 10 ^3/uL (0-0.2) Nucleated Red Blood Cells 0.1 % Sodium Level 140 mmol/L (136-145) Potassium Level 4.9 mmol/L (3.5-5.1) Chloride Level 102 mmol/L (98-107) Carbon Dioxide Level 31 mmol/L (20-31) Anion Gap 7 (5-15) Blood Urea Nitrogen 20 mg/dL (9-23) Creatinine 0.91 mg/dL (0.550-1.02) Glomerular Filtration Rate Calc 72 mL/min (>90) BUN/Creatinine Ratio 22.0 (10.0-20.0) Serum Glucose 201 mg/dL (74-106) Hemoglobin A1c 6.3 % A1C (<5.7) Calcium Level 9.4 mg/dL (8.7-10.4) Magnesium Level 1.8 mg/dL (1.6-2.6) Total Bilirubin 0.7 mg/dL (0.2-1.0) Aspartate Amino Transf (AST/SGOT) 15 U/L (13-40) Alanine Aminotransferase (ALT/SGPT) < 9 U/L (7-40) Alkaline Phosphatase 84 U/L (46-116) Total Protein 7.1 g/dL (5.7-8.2) Albumin 3.9 g/dL (3.2-4.8) Thyroid Stimulating Hormone (TSH) 0.64 uIU/mL (0.55-4.78) Test 02/11/25 11:30 02/11/25 12:28 02/11/25 12:37 Influenza Type A Antigen Negative (Negative) Influenza Type B Antigen Negative (Negative) SARS-CoV-2 Antigen (Rapid) Negative (NEGATIVE) Prothrombin Time 11.9 sec (9.3-11.8) Prothromb Time International Ratio 1.14 (0.9-1.15) Activated Partial Thromboplast Time 25.6 SEC (24.5-34.5) Bedside Glucose 198 mg/dl (70-106) Appearance: Stated age Psychomotor activity: WNL Behavioral: Cooperative Eye contact: Appropriate Speech: WNL Affect: Appropriate, Mood Congruent Mood: Depressed Thought processes: Linear/Goal-directed Thought content: WNL Suicidal ideations: Absent Homicidal ideations: Absent Orientation: Person, Place, Time, Situation Memory intact: Recent Intellect: Average Abstractability: WNL Concentration: Adequate Attention: Adequate Judgement: WNL Insight: Good Vitals Vital Signs Date Time Temp Pulse Resp B/P (MAP) Pulse Ox O2 Delivery O2 Flow Rate FiO2 02/11/25 10:53 92 137/83 02/11/25 10:00 92 Nasal Cannula* 4 36 02/11/25 08:07 18 02/11/25 08:00 98.4 98.4 Current medications Current Medications Medications Dose Ordered Sig/Chance Route Start Time Stop Time Status Last Admin Dose Admin Albuterol 2.5 mg Q4HPRN PRN NEB 02/10/25 20:00 02/11/25 08:01 2.5 MG Ipratropium [place] 0.5 mg Q4HPRN PRN NEB 02/10/25 20:00 02/11/25 08:01 0.5 MG Famotidine 20 mg Q12HR IV 02/10/25 22:00 02/11/25 10:51 20 MG Diagnostic Test (Pha) 1 strip ACHS 02/10/25 22:00 02/11/25 06:07 1 STRIP Insulin Human Regular ACHS SC 02/10/25 22:00 02/11/25 06:17 4 UNITS Dextrose 50 ml UD PRN IV 02/10/25 20:00 Carvedilol 3.125 mg Q12HR PO 02/10/25 22:00 02/11/25 10:53 3.125 MG Furosemide 40 mg BIDD IV 02/10/25 20:30 02/11/25 06:06 40 MG Sodium Chloride 10 ml Q8HR IV 02/10/25 22:00 02/11/25 06:06 10 ML Docusate Sodium 100 mg BIDPRN PRN PO 02/10/25 20:30 Acetaminophen 650 mg Q6HP PRN PO 02/10/25 20:30 Acetaminophen/ Hydrocodone Bitart 1 tab Q4HP PRN PO 02/10/25 20:30 02/11/25 10:52 1 TAB Ondansetron HCl 4 mg Q4HP PRN IV 02/10/25 20:30 Morphine Sulfate 2 mg Q4HPRN PRN IV 02/10/25 20:30 Enoxaparin Sodium 40 mg DAILY SC 02/11/25 10:00 02/11/25 10:51 40 MG Treatment plan discussed: With staff Medication adjusted: No Labs ordered: No Psychotherapy provided: Yes Type: Voluntary History of Present Illness Reason for Consult : psychiatric evaluation PER H&P:59y F who presents to the ED via EMS for chief complaint of shortness of breath. Pt states she has been having shortness of breath, chest pains, cough with associated clear sputum for the past 2 weeks and called EMS to due exacerbation of her symptoms. Pt states over the past few weeks, she has started to get increased swelling diffusely across her chest and extremities. Pt states she saw PCP a few weeks prior and states her Lasix were increased from 20 to 40. Pt now in the ED, states she has pain around her neck, shoulder and diffusely across her chest. Per EKG, pt received 324 ASA, 0.4 nitro x 1 and they state her was a 1/10 upon arrival to the ED. Pt now in the ED, has stable vitals with noted 02 sat of 95% on 4 L via nc, BP of 114/66, rr 18, and heart rate of 87. Pt states she has history of COPD and CHF and is on home 02. Pt otherwise denies any other symptoms at this time. PSYCHIATRIST HPI: The patient was seen and evaluated at [facility] via telepsychiatry platform. 59 yr old female was admitted for shortness of breath. She reported that she feels "hopeless in her situation". She is supposed to move out in January, but can't afford the rent. She is applying for social security. She is unsure about what she is supposed to do.She said she just feels like she is depressed because she doesn't have money. She noted she has an infection and heart failure and other medical issues. She noted she is a "happy go ezequiel" person but she is unhappy about her financial and housing situation. She stated she didn't want to be on medications although we spoke about starting wellbutrin, but she was not interested. She denied having suicidal or homicidal ideation, and denied having auditory or visual hallucinations. Past Psychiatric History: No h/o hospitalizations, treatment or suicide attempts. Current psych medications: Metformin, gabapentin, hydrocodone, NKDA She noted she had celexa prescribed but doesn't take it anymore because she feels like it didn't work. Substance use: Past smoker. Denied using alcohol and drugs. Social History : Lives in [place] by self. 30 yrs, she noted they don't want to live together anymore. She has two children in their thirties. 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 DIAGNOSIS: UNSPECIFIED DEPRESSIVE DISORDER Formulation: This 59 yr old female appears to suffer from depression which she attributes to her financial situation. She may benefit from starting an antidepressant, but does not desire to start medications. She may also benefit from social work consult to help with housing and financial resources She does not warrant psychiatric hospitalization Plan: 1. Safety. The patient is a low risk for self-harm and may be managed as an outpatient. 2. Legal-voluntary. 3. Medications: She does not desire medication at this time. 4. Case discussed with RACQUEL Monae. Follow up with outpatient mental health for medication management and therapy. 5. Please recontact psychiatry for further follow up or reevaluation. Assessment/Diagnosis/Plan Reviewed: Labs, Medications, Previous Orders RACHEL JEFFRIES MD Feb 11, 2025 13:16
[2025-02-11] MEDS: ERGOCALCIFEROL 50,000 UNIT(1.25MG) CAP PO SCH (16:15)
--- NOTE | 2025-02-11 16:15 | DVHPNRES ---
Progress Note Date Seen: Feb 11, 2025 Resident Creating Document: ANN-MARIE COLLINS RESIDENT Medical Necessity Reason Pt with a Central, PICC or Fol: No Subjective Review of Systems Ms. Diez is a 59-year-old female with past medical history of heart failure with preserved ejection fraction-EF 55 %,, COPD on 2 L home oxygen, diabetes mellitus type 2, hypertension, nephrolithiasis 2020, who presented to the ER with a chief complaint of presyncope, feeling low mood and shortness of breath. She reports that she was sitting in a chair when she felt like she was going to pass out for about a couple of seconds, dizziness or lightheadedness. Denies seizure-like activity. Denies tongue biting or losing urine. Denies confusion. Hitting her head or falls. She reports shortness of breath on exertion, but denies cough for phlegm. Reports says he recently from her and their relationship was not great, she lives alone and has low mood, lack of interest in obese and daily life activities and reports a lot of stress in life. She required oxygen supplementation with 4 L, her baseline is 2 L. On examination, patient had bilateral crackles basilar region, bilateral 3+ pitting edema. Bilateral signs of chronic venous insufficiency. She was started on IV Lasix and echo was ordered. Tele psych was consulted given the patient's depressive symptoms, recommended outpatient management. MRSA nares positive and patient was started on mupirocin ointment. Past medical history: See above Social history: Denies smoking, drinking, illicit drug Patient seen and examined at bedside. Tele psych completed, recommended outpatient. Echocardiogram pending. Objective vital signs Vital Sign Date Time Temp Pulse Resp B/P (MAP) Pulse Ox O2 Delivery O2 Flow Rate FiO2 02/11/25 14:15 110/62 (78) 111/57 (75) 113/63 (80) 02/11/25 12:00 98.4 88 20 92 98.4 02/11/25 10:00 Nasal Cannula* 4 36 Total Intake and Output 02/10/25 02/10/25 02/11/25 15:00 23:00 07:00 Intake Total 300 ml Output Total 200 ml Balance 300 ml -200 ml medications Current Medications Medications Dose Ordered Sig/Chance Route Start Time Stop Time Status Last Admin Dose Admin Albuterol 2.5 mg Q4HPRN PRN NEB 02/10/25 20:00 02/11/25 08:01 2.5 MG Ipratropium [place] 0.5 mg Q4HPRN PRN NEB 02/10/25 20:00 02/11/25 08:01 0.5 MG Famotidine 20 mg Q12HR IV 02/10/25 22:00 02/11/25 10:51 20 MG Diagnostic Test (Pha) 1 strip ACHS 02/10/25 22:00 02/11/25 06:07 1 STRIP Insulin Human Regular ACHS SC 02/10/25 22:00 02/11/25 12:48 3 UNITS Dextrose 50 ml UD PRN IV 02/10/25 20:00 Carvedilol 3.125 mg Q12HR PO 02/10/25 22:00 02/11/25 10:53 3.125 MG Furosemide 40 mg BIDD IV 02/10/25 20:30 02/11/25 06:06 40 MG Sodium Chloride 10 ml Q8HR IV 02/10/25 22:00 02/11/25 06:06 10 ML Docusate Sodium 100 mg BIDPRN PRN PO 02/10/25 20:30 Acetaminophen 650 mg Q6HP PRN PO 02/10/25 20:30 Acetaminophen/ Hydrocodone Bitart 1 tab Q4HP PRN PO 02/10/25 20:30 02/11/25 10:52 1 TAB Ondansetron HCl 4 mg Q4HP PRN IV 02/10/25 20:30 Morphine Sulfate 2 mg Q4HPRN PRN IV 02/10/25 20:30 Enoxaparin Sodium 40 mg DAILY SC 02/11/25 10:00 02/11/25 10:51 40 MG Examination Patient lying in bed, in no acute distress General: Well-built, afebrile, palor, mucosae are moist Cardiovascular: Regular S1 and S2. No murmurs, gallops or rubs. No JVD elevation. Bilateral 3+ pitting edema Respiratory: bilateral crackles basilar region, bilateral 3+ pitting edema. Bilateral signs of chronic venous insufficiency. Abdomen: Soft, nontender, nondistended, normoactive bowel sounds, no rebound tenderness, no organomegaly, no masses Genitourinary: Deferred MSK/skin: Mobilizes 4 limbs. Skin is dry and warm Neurological: No motor, no sensitive deficits, normal speech. Pupils are isocoric and reactive. Psych/Mental Status: A/Ox3 laboratory and microbiology Laboratory Tests 02/11/25 05:36 Test 02/11/25 05:36 Range/Units Serum Glucose 201 H 74-106 mg/dL Microbiology Date/Time Source Procedure Growth Status 02/11/25 01:30 Nose MRSA Screen - Final Complete Labs and/or images reviewed: Labs reviewed by me, Image(s) reviewed by me Problem List/Assessment/Plan Problem List/Assessment/Plan Likely diastolic congestive heart failure-NYHA class 3 Uncontrolled hypertension Hypertensive heart disease with diastolic dysfunction Acute hypoxic respiratory failure on chronic respiratory failure secondary to above Currently requiring oxygen supplementation with 4 L NC, baseline 2 L IV Lasix 40 mg b.i.d. and Coreg 3.125 b.i.d. Echocardiogram pending Echocardiogram showed EF 55% Ruled out orthostatic hypotension COPD-no exacerbation on 2 L home oxygen Nebulized treatment MRSA nares positive 2% mupirocin ointment Blood culture ordered Diabetes mellitus type 2-hemoglobin A1c 6.3 On ISS Vitamin-D deficiency Supplemented Morbid obesity Counseled regarding lifestyle measures for more than 25 minutes Anxiety ? generalized anxiety disorder Tele psych consulted, recommended resources the outpatient Plan discussed with patient in which all questions have been answered Goals of care discussed with patient for more than 28 minutes, full code status Decreased discussed with Dr. Schulz Plan discussed with: Patient My Orders My Orders Orders - ANN-MARIE COLLINS Procedure Category Date Status Time Orthostatic Vital ORDERS 02/11/25 Transmitted Signs 10:52 Cardiac DIET 02/11/25 Transmitted Diet-2gna,Lofat,Lochol Lunch Maintain Fluid FELIX 02/11/25 In Process Restrictions 10:52 Strict I & O FELIX 02/11/25 In Process 10:52 Vitamin B12 LAB 02/11/25 In Process 10:54 Drug Screen LAB 02/11/25 Logged 10:54 Soc Telemed Psych CONS 02/11/25 Transmitted Consult 10:56 Communication Order ORDERS 02/11/25 Transmitted 10:56 Date of Service: Feb 11, 2025 Billing Provider: JEAN CLAUDE SCHULZ MD Common Visit Codes: [id number] INP/OBS CARE(HIGH) ANN-MARIE COLLINS RESIDENT Feb 11, 2025 16:15 JEAN CLAUDE SCHULZ MD Feb 12, 2025 15:11
[2025-02-11] MEDS: MUPIROCIN 2% OINT 15gm or 22gm FOR MRSA NARES EACHNOSTRI SCH (16:45)
--- NOTE | 2025-02-11 22:19 | DVHPN2 ---
Progress Note - Dictate Date Seen: Feb 11, 2025 Medical Necessity Reason Pt with a Central, PICC or Fol: No Subjective Patient was seen and evaluated in follow up. Patient is complaining of SOB. The patient is on 3 LPM NC. BS are in the 220's. Influenza A/B and covid are negative. Echocardiogram is ordered and pending. Telemetry reviewed. vital signs Vital Sign Date Time Temp Pulse Resp B/P (MAP) Pulse Ox O2 Delivery O2 Flow Rate FiO2 02/11/25 10:53 92 137/83 02/11/25 08:07 18 93 02/11/25 08:01 Nasal Cannula 3.0 02/11/25 08:01 32 02/11/25 08:00 98.4 98.4 Total Intake and Output 02/10/25 02/10/25 02/11/25 15:00 23:00 07:00 Intake Total 300 ml Output Total 200 ml Balance 300 ml -200 ml medications Current Medications Medications Dose Ordered Sig/Chance Route Start Time Stop Time Status Last Admin Dose Admin Albuterol 2.5 mg Q4HPRN PRN NEB 02/10/25 20:00 02/11/25 08:01 2.5 MG Ipratropium [place] 0.5 mg Q4HPRN PRN NEB 02/10/25 20:00 02/11/25 08:01 0.5 MG Famotidine 20 mg Q12HR IV 02/10/25 22:00 02/11/25 10:51 20 MG Diagnostic Test (Pha) 1 strip ACHS 02/10/25 22:00 02/11/25 06:07 1 STRIP Insulin Human Regular ACHS SC 02/10/25 22:00 02/11/25 06:17 4 UNITS Dextrose 50 ml UD PRN IV 02/10/25 20:00 Carvedilol 3.125 mg Q12HR PO 02/10/25 22:00 02/11/25 10:53 3.125 MG Furosemide 40 mg BIDD IV 02/10/25 20:30 02/11/25 06:06 40 MG Sodium Chloride 10 ml Q8HR IV 02/10/25 22:00 02/11/25 06:06 10 ML Docusate Sodium 100 mg BIDPRN PRN PO 02/10/25 20:30 Acetaminophen 650 mg Q6HP PRN PO 02/10/25 20:30 Acetaminophen/ Hydrocodone Bitart 1 tab Q4HP PRN PO 02/10/25 20:30 02/11/25 10:52 1 TAB Ondansetron HCl 4 mg Q4HP PRN IV 02/10/25 20:30 Morphine Sulfate 2 mg Q4HPRN PRN IV 02/10/25 20:30 Enoxaparin Sodium 40 mg DAILY SC 02/11/25 10:00 02/11/25 10:51 40 MG objective GENERAL: Awake, alert, oriented. Obese LUNGS: Bilateral wheezing posterior lung malagon . CARDIOVASCULAR: Heart sounds are good. ABDOMEN: Soft. EXT: Bilateral lower extremity edema. laboratory and microbiology Laboratory Tests 02/11/25 05:36 Test 02/11/25 05:36 Range/Units Serum Glucose 201 H 74-106 mg/dL Problem List Pneumonia. Acute hypoxic respiratory failure. CHF exacerbation. COPD exacerbation. Assessment/Plan Continued all current supportive medical care. Echocardiogram. Morphine and [place] for pain management. IV antibiotics as ordered. Coreg. DVT prophylactics. Diuretics with Lasix. Additional plan as per the hospital course. Plan discussed with: Patient SCHUYLER PLUMMER MD Feb 11, 2025 11:45
[2025-02-12] VITALS (11 sets, daily range): BP systolic 105–144; BP diastolic 63–85; PULSE 62–78; RESP 18–20; TEMP 97.4–98.7; O2SAT 91–94
[2025-02-12] MEDS ORDERED: ERGOCALCIFEROL 50,000 UNIT(1.25MG) CAP PO SCH (07:30)
[2025-02-12 07:45] LABS: Basophils # (auto) 0.1 10 ^3/uL (0-0.2); Basophils % (auto) 0.6 % (0.0-2.0); Eosinophils # (auto) 0.1 10 ^3/uL (0-0.8); Eosinophils % (auto) 0.7 % (0.0-7.0); Hematocrit 47.7 % (36.0-46.0); Hemoglobin 15.1 g/dL (12.2-16.2); Lymphocytes # (auto) 2.9 10 ^3/uL (0.4-5.4); Lymphocytes % (auto) 28.8 % (10.0-50.0); Mean Corpuscular Hemoglobin 27.5 pg (28.0-32.0); Mean Corpuscular Hgb Conc. 31.6 g/dL (32.0-36.0); Mean Corpuscular Volume 87.1 fL (80.0-100.0); Monocytes # (auto) 0.7 10 ^3/uL (0-1.3); Monocytes % (auto) 7.2 % (0.0-12.0); Neutrophils # (auto) 6.3 10 ^3/uL (1.6-8.6); Neutrophils % (auto) 62.7 % (37.0-80.0); Nucleated Red Blood Cells % 0.1 %; Platelet Count (auto) 200 10^3/uL (140-450); Red Blood Cells 5.48 10^6/uL (4.0-5.20); Red Cell Distribution Width 15.7 % (11.8-14.3)
[2025-02-12 07:55] LABS: Potassium 4.9 mmol/L (3.5-5.1); Sodium 138 mmol/L (136-145)
[2025-02-12 07:56] LABS: Anion Gap 4 (5-15); Calcium 9.8 mg/dL (8.7-10.4); Carbon Dioxide 38 mmol/L (20-31); Chloride 96 mmol/L (98-107)
[2025-02-12 08:01] LABS: BUN/Creatinine Ratio 24.3 (10.0-20.0)
[2025-02-12 08:02] LABS: Blood Urea Nitrogen 26 mg/dL (9-23); Glucose 128 mg/dL (74-106)
--- NOTE | 2025-02-12 09:47 | DVHPNRES ---
Progress Note Date Seen: Feb 12, 2025 Resident Creating Document: ANN-MARIE COLLINS RESIDENT Medical Necessity Reason Pt with a Central, PICC or Fol: No Subjective Review of Systems Ms. Diez is a 59-year-old female with past medical history of heart failure with preserved ejection fraction-EF 55 %,, COPD on 2 L home oxygen, diabetes mellitus type 2, hypertension, nephrolithiasis 2020, who presented to the ER with a chief complaint of presyncope, feeling low mood and shortness of breath. She reports that she was sitting in a chair when she felt like she was going to pass out for about a couple of seconds, dizziness or lightheadedness. Denies seizure-like activity. Denies tongue biting or losing urine. Denies confusion. Hitting her head or falls. She reports shortness of breath on exertion, but denies cough for phlegm. Reports says he recently from her and their relationship was not great, she lives alone and has low mood, lack of interest in obese and daily life activities and reports a lot of stress in life. She required oxygen supplementation with 4 L, her baseline is 2 L. On examination, patient had bilateral crackles basilar region, bilateral 3+ pitting edema. Bilateral signs of chronic venous insufficiency. She was started on IV Lasix and echo was ordered. Tele psych was consulted given the patient's depressive symptoms, recommended outpatient management. MRSA nares positive and patient was started on mupirocin ointment. Past medical history: See above Social history: Denies smoking, drinking, illicit drug 02/11 - Patient seen and examined at bedside. Tele psych completed, recommended outpatient. Echocardiogram pending. 02/12 - patient seen and examined at the bedside. Reports feeling better, lower extremity swelling is resolving. Lasix changed to 40 mg IV daily given increase in serum bicarb. CPAP ordered for nighttime, physical therapy ordered, [place] changed to 7.5/325 mg daily. Holding patient's gabapentin given that it may cause worsening fluid overload. Objective vital signs Vital Sign Date Time Temp Pulse Resp B/P (MAP) Pulse Ox O2 Delivery O2 Flow Rate FiO2 02/12/25 07:31 91 Nasal Cannula 2.0 02/12/25 07:31 28 02/12/25 06:02 138/69 02/12/25 05:00 98.4 77 18 98.4 Total Intake and Output 02/11/25 02/11/25 02/12/25 15:00 23:00 07:00 Intake Total 686 ml 800 ml Output Total 150 ml 700 ml Balance 536 ml 100 ml medications Current Medications Medications Dose Ordered Sig/Chance Route Start Time Stop Time Status Last Admin Dose Admin Albuterol 2.5 mg Q4HPRN PRN NEB 02/10/25 20:00 02/11/25 08:01 2.5 MG Ipratropium [place] 0.5 mg Q4HPRN PRN NEB 02/10/25 20:00 02/11/25 08:01 0.5 MG Famotidine 20 mg Q12HR IV 02/10/25 22:00 02/11/25 22:05 20 MG Diagnostic Test (Pha) 1 strip ACHS 02/10/25 22:00 02/12/25 06:06 1 STRIP Insulin Human Regular ACHS SC 02/10/25 22:00 02/12/25 06:03 2 UNITS Dextrose 50 ml UD PRN IV 02/10/25 20:00 Carvedilol 3.125 mg Q12HR PO 02/10/25 22:00 02/11/25 22:03 3.125 MG Sodium Chloride 10 ml Q8HR IV 02/10/25 22:00 02/12/25 06:04 10 ML Docusate Sodium 100 mg BIDPRN PRN PO 02/10/25 20:30 Acetaminophen 650 mg Q6HP PRN PO 02/10/25 20:30 Acetaminophen/ Hydrocodone Bitart 1 tab Q4HP PRN PO 02/10/25 20:30 02/12/25 06:56 1 TAB Ondansetron HCl 4 mg Q4HP PRN IV 02/10/25 20:30 Morphine Sulfate 2 mg Q4HPRN PRN IV 02/10/25 20:30 Enoxaparin Sodium 40 mg DAILY SC 02/11/25 10:00 02/11/25 10:51 40 MG Ergocalciferol 50,000 unit Q7D PO 02/11/25 16:15 Mupirocin 1 applic BID EACHNOSTRI 02/11/25 16:45 02/16/25 16:44 02/11/25 22:00 1 APPLIC Ergocalciferol 50,000 unit Q7D PO 02/12/25 07:30 UNV Acetaminophen/ Hydrocodone Bitart 1 tab Q6HP PRN PO 02/12/25 08:00 UNV Furosemide 40 mg DAILY IV 02/12/25 10:00 UNV Examination Patient lying in bed, in no acute distress General: Well-built, afebrile, palor, mucosae are moist Cardiovascular: Regular S1 and S2. No murmurs, gallops or rubs. No JVD elevation. Bilateral 3+ pitting edema Respiratory: bilateral crackles basilar region, bilateral 3+ pitting edema. Bilateral signs of chronic venous insufficiency. Abdomen: Soft, nontender, nondistended, normoactive bowel sounds, no rebound tenderness, no organomegaly, no masses Genitourinary: Deferred MSK/skin: Mobilizes 4 limbs. Skin is dry and warm Neurological: No motor, no sensitive deficits, normal speech. Pupils are isocoric and reactive. Psych/Mental Status: A/Ox3 laboratory and microbiology Laboratory Tests 02/12/25 06:48 Test 02/12/25 06:48 Range/Units Serum Glucose 128 H 74-106 mg/dL Microbiology Date/Time Source Procedure Growth Status 02/11/25 01:30 Nose MRSA Screen - Final Complete Labs and/or images reviewed: Labs reviewed by me, Image(s) reviewed by me Problem List/Assessment/Plan Problem List/Assessment/Plan 02/12 - patient seen and examined at the bedside. Reports feeling better, lower extremity swelling is resolving. Lasix changed to 40 mg IV daily given increase in serum bicarb. CPAP ordered for nighttime, physical therapy ordered, [place] changed to 7.5/325 mg daily. Holding patient's gabapentin given that it may cause worsening fluid overload. Likely diastolic congestive heart failure-NYHA class 3 Uncontrolled hypertension Hypertensive heart disease with diastolic dysfunction Acute hypoxic respiratory failure on chronic respiratory failure secondary to above Currently requiring oxygen supplementation with 4 L NC, baseline 2 L IV Lasix 40 mg b.i.d, changed to once daily. and Coreg 3.125 b.i.d. Echocardiogram pending Previous Echocardiogram showed EF 55% Ruled out orthostatic hypotension COPD-no exacerbation on 2 L home oxygen Nebulized treatment MRSA nares positive 2% mupirocin ointment Blood culture ordered Diabetes mellitus type 2-hemoglobin A1c 6.3 On ISS Vitamin-D deficiency Supplemented Morbid obesity Probable obstructive sleep apnea Counseled regarding lifestyle measures for more than 25 minutes CPAP at nighttime Anxiety ? generalized anxiety disorder Tele psych consulted, recommended resources the outpatient Pending echocardiogram PT eval Lovenox 40 mg sc daily Plan discussed with patient in which all questions have been answered Goals of care discussed with patient for more than 28 minutes, full code status Decreased discussed with Dr. Schulz Plan discussed with: Patient My Orders My Orders Orders - ANN-MARIE COLLINS Procedure Category Date Status Time Orthostatic Vital ORDERS 02/11/25 Transmitted Signs 10:52 Cardiac DIET 02/11/25 Transmitted Diet-2gna,Lofat,Lochol Lunch Maintain Fluid FELIX 02/11/25 In Process Restrictions 10:52 Strict I & O FELIX 02/11/25 In Process 10:52 Vitamin B12 LAB 02/11/25 In Process 10:54 Drug Screen LAB 02/11/25 Logged 10:54 Soc Telemed Psych CONS 02/11/25 Transmitted Consult 10:56 Communication Order ORDERS 02/11/25 Transmitted 10:56 Ergocalciferol PHA 02/11/25 In Process (Vitamin D 50,000 16:15 Mupirocin 2% Oint PHA 02/11/25 In Process Mrsa Nares (Bactroban 16:45 Blood Culture NATALY 02/11/25 In Process 16:40 Ergocalciferol PHA 02/12/25 Logged (Vitamin D 50,000 07:30 Pt Request For Service PT 02/12/25 Logged 07:52 Hydrocodone-Acet PHA 02/12/25 Logged 7.5/325mg Tab ([place] 08:00 Bipap/Cpap For Sleep RT 02/12/25 Logged Apnea 09:13 Furosemide Injection PHA 02/12/25 Logged (Lasix Injection) 10:00 Date of Service: Feb 12, 2025 Billing Provider: JEAN CLAUDE SCHULZ MD Common Visit Codes: [id number] INP/OBS CARE(HIGH) ANN-MARIE COLLINS RESIDENT Feb 12, 2025 09:47 JEAN CLAUDE SCHULZ MD Feb 12, 2025 15:11
[2025-02-12] MEDS: HYDROcodone-ACET 7.5/325MG TAB PO PRN (11:24)
--- NOTE | 2025-02-12 22:18 | DVHPN2 ---
Progress Note - Dictate Date Seen: Feb 12, 2025 Medical Necessity Reason Pt with a Central, PICC or Fol: No Subjective Patient was seen and evaluated in follow up. Patient is complaining of SOB. Patient is on 2 LPM NC. Tele psych completed, recommended outpatient follow up. 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 Echocardiogram pending. Telemetry reviewed. vital signs Vital Sign Date Time Temp Pulse Resp B/P (MAP) Pulse Ox O2 Delivery O2 Flow Rate FiO2 02/12/25 19:55 94 Nasal Cannula* 2 28 02/12/25 16:35 97.7 62 18 105/73 (84) 97.7 Total Intake and Output 02/11/25 02/11/25 02/12/25 15:00 23:00 07:00 Intake Total 686 ml 800 ml Output Total 150 ml 700 ml Balance 536 ml 100 ml medications Current Medications Medications Dose Ordered Sig/Chance Route Start Time Stop Time Status Last Admin Dose Admin Albuterol 2.5 mg Q4HPRN PRN NEB 02/10/25 20:00 02/11/25 08:01 2.5 MG Ipratropium [place] 0.5 mg Q4HPRN PRN NEB 02/10/25 20:00 02/11/25 08:01 0.5 MG Famotidine 20 mg Q12HR IV 02/10/25 22:00 02/12/25 11:01 20 MG Diagnostic Test (Pha) 1 strip ACHS 02/10/25 22:00 02/12/25 17:00 1 STRIP Insulin Human Regular ACHS SC 02/10/25 22:00 02/12/25 06:03 2 UNITS Dextrose 50 ml UD PRN IV 02/10/25 20:00 Carvedilol 3.125 mg Q12HR PO 02/10/25 22:00 02/12/25 11:01 3.125 MG Sodium Chloride 10 ml Q8HR IV 02/10/25 22:00 02/12/25 14:00 10 ML Docusate Sodium 100 mg BIDPRN PRN PO 02/10/25 20:30 Acetaminophen 650 mg Q6HP PRN PO 02/10/25 20:30 Acetaminophen/ Hydrocodone Bitart 1 tab Q4HP PRN PO 02/10/25 20:30 02/12/25 06:56 1 TAB Ondansetron HCl 4 mg Q4HP PRN IV 02/10/25 20:30 Morphine Sulfate 2 mg Q4HPRN PRN IV 02/10/25 20:30 Enoxaparin Sodium 40 mg DAILY SC 02/11/25 10:00 02/12/25 11:01 40 MG Ergocalciferol 50,000 unit Q7D PO 02/11/25 16:15 02/11/25 16:15 50,000 UNIT Mupirocin 1 applic BID EACHNOSTRI 02/11/25 16:45 02/16/25 16:44 02/12/25 10:00 1 APPLIC Acetaminophen/ Hydrocodone Bitart 1 tab Q6HP PRN PO 02/12/25 08:00 02/12/25 11:24 1 TAB Furosemide 40 mg DAILY IV 02/13/25 10:00 objective GENERAL: Awake, alert, oriented. Obese LUNGS: Bilateral wheezing posterior lung malagon . CARDIOVASCULAR: Heart sounds are good. ABDOMEN: Soft. EXT: Bilateral lower extremity edema. laboratory and microbiology Laboratory Tests 02/12/25 06:48 Test 02/12/25 06:48 Range/Units Serum Glucose 128 H 74-106 mg/dL Problem List Pneumonia. Acute hypoxic respiratory failure. CHF exacerbation. COPD exacerbation. Assessment/Plan Continued all current supportive medical care. Echocardiogram. Morphine and [place] for pain management. IV antibiotics as ordered. Coreg. DVT prophylactics. Diuretics with Lasix. Additional plan as per the hospital course. Plan discussed with: Patient SCHUYLER PLUMMER MD Feb 12, 2025 20:14
[2025-02-13] VITALS (10 sets, daily range): BP systolic 96–156; BP diastolic 55–82; PULSE 64–87; RESP 18–20; TEMP 97.4–98.6; O2SAT 92–100
--- NOTE | 2025-02-13 01:11 | DVHSR ---
APPROVED REPORT EXAM: LIMITED Two-dimensional echocardiogram with contrast. Blood Pressure: 141/87 mmHg INDICATION CHF Exacerbtion RISK FACTORS Obesity: Height: 5'3, Weight: 326 DIMENSIONS LVDd4.6 (3.8-5.7cm)LA (2D)4.0 (1.9-4.0cm)Aortic Root3.1 (2.0-3.7cm) LVDs3.4 (2.5-4.0cm)LA (MM) (1.9-4.0cm)Aortic Cusp Exc2.0 (1.5-2.0cm) EF (%) 52.0 (55-70%)Rt. Atrium3.4 (1.9-4.0cm)Asc. Aorta3.7 cm IVSd1.2 (0.7-1.1cm)RV (D)5.0 (1.8-2.4cm) PWd1.3 (0.7-1.1cm) Mitral Valve MitralMitral Stenosis E wave1.08m/sMV Mean GR.mmHg A wave1.24m/sMV Peak GR.69mmHg E/A ratio0.92D MVAcm2 DECEL [id number] 1/2 [place] Aortic Valve Aortic ValveAortic Stenosis V11.51m/Ped[place] Mean GR.7mmHg V21.83m/[place] Peak GR.13mmHg LVOT Diameter2.2 (1.8-2.4cm)Doppler AVA3.14cm2 Pulmonic Valve V20.89m/s Tricuspid Valve TR Velocity2.68m/s [id number] Other Information Quality : Technically LimitedRhythm : Technically limited study due to body habitus.patient position. Conclusion LV EF IS 65% AND IS NORMAL MODERATELY DILATED RV RVSP IS 45 MM OF HG AND IS MODERATELY HIGH NORMAL VALVES NO EFFUSION
[2025-02-13 09:51] LABS: Alanine Aminotransferase 14 U/L (7-40); Albumin 3.5 g/dL (3.2-4.8); Alkaline Phosphatase 64 U/L (46-116); Anion Gap 3 (5-15); Aspartate Aminotransferase 22 U/L (13-40); BUN/Creatinine Ratio 27.7 (10.0-20.0); Calcium 9.1 mg/dL (8.7-10.4); Potassium 4.5 mmol/L (3.5-5.1); Sodium 138 mmol/L (136-145); Total Protein 6.4 g/dL (5.7-8.2)
[2025-02-13 09:52] LABS: Bilirubin, Total 0.8 mg/dL (0.2-1.0)
[2025-02-13 09:53] LABS: Blood Urea Nitrogen 26 mg/dL (9-23); Carbon Dioxide 38 mmol/L (20-31); Chloride 97 mmol/L (98-107); Glucose 165 mg/dL (74-106)
[2025-02-13] MEDS: FUROSEMIDE 40 MG/4 ML VIAL IV SCH (10:01)
--- NOTE | 2025-02-13 11:36 | DVHPNRES ---
Progress Note Medical Necessity Reason Pt with a Central, PICC or Fol: No Objective vital signs Vital Sign Date Time Temp Pulse Resp B/P (MAP) Pulse Ox O2 Delivery O2 Flow Rate FiO2 02/13/25 11:21 68 18 92 02/13/25 11:15 Nasal Cannula* 2 28 02/13/25 10:01 123/72 02/13/25 09:00 97.4 97.4 Total Intake and Output 02/12/25 02/12/25 02/13/25 15:00 23:00 07:00 Intake Total 448 ml 675 ml Output Total 1200 ml 950 ml Balance -752 ml -275 ml medications Current Medications Medications Dose Ordered Sig/Chance Route Start Time Stop Time Status Last Admin Dose Admin Albuterol 2.5 mg Q4HPRN PRN NEB 02/10/25 20:00 02/13/25 11:15 2.5 MG Ipratropium [place] 0.5 mg Q4HPRN PRN NEB 02/10/25 20:00 02/13/25 11:15 0.5 MG Famotidine 20 mg Q12HR IV 02/10/25 22:00 02/13/25 10:28 20 MG Diagnostic Test (Pha) 1 strip ACHS 02/10/25 22:00 02/13/25 06:40 1 STRIP Insulin Human Regular ACHS SC 02/10/25 22:00 02/12/25 06:03 2 UNITS Dextrose 50 ml UD PRN IV 02/10/25 20:00 Carvedilol 3.125 mg Q12HR PO 02/10/25 22:00 02/13/25 10:01 3.125 MG Sodium Chloride 10 ml Q8HR IV 02/10/25 22:00 02/13/25 06:00 10 ML Docusate Sodium 100 mg BIDPRN PRN PO 02/10/25 20:30 Acetaminophen 650 mg Q6HP PRN PO 02/10/25 20:30 Acetaminophen/ Hydrocodone Bitart 1 tab Q4HP PRN PO 02/10/25 20:30 02/12/25 06:56 1 TAB Ondansetron HCl 4 mg Q4HP PRN IV 02/10/25 20:30 Morphine Sulfate 2 mg Q4HPRN PRN IV 02/10/25 20:30 Enoxaparin Sodium 40 mg DAILY SC 02/11/25 10:00 3/16/25 10:00 40 MG Ergocalciferol 50,000 unit Q7D PO 02/11/25 16:15 02/11/25 16:15 50,000 UNIT Mupirocin 1 applic BID EACHNOSTRI 02/11/25 16:45 02/16/25 16:44 02/13/25 10:28 1 APPLIC Acetaminophen/ Hydrocodone Bitart 1 tab Q6HP PRN PO 02/12/25 08:00 02/13/25 08:11 1 TAB Furosemide 40 mg DAILY IV 02/13/25 10:00 02/13/25 10:01 40 MG laboratory and microbiology Laboratory Tests 02/13/25 08:55 02/12/25 06:48 Test 02/13/25 08:55 Range/Units Serum Glucose 165 H 74-106 mg/dL Microbiology Date/Time Source Procedure Growth Status 02/11/25 17:40 Blood Blood Culture - Preliminary NO GROWTH AFTER 24 HOURS OF INCUBATION. Resulted 02/11/25 01:30 Nose MRSA Screen - Final Complete My Orders My Orders Orders - LAURE MASTERS Procedure Category Date Status Time Chest Xray 1 View XY 02/13/25 Logged 10:11 LAURE MASTERS RESIDENT Feb 13, 2025 11:36
[2025-02-13] MEDS ORDERED: CARV-214 PO (15:06)
[2025-02-13] MEDS ORDERED: EMPA1TAB PO (15:06)
--- NOTE | 2025-02-13 15:58 | DVHDSRES ---
Discharge Summary Date of Admission Resident Creating Document: ANN-MARIE COLLINS RESIDENT Feb 10, 2025 at 20:18 Date of Discharge: Feb 13, 2025 Admitting Diagnosis acute heart failure exacerbation Labs/Diagnostic Data: Laboratory Results Test 02/13/25 11:40 02/13/25 08:55 02/12/25 06:48 02/11/25 22:26 POC Glucose 130 mg/dl (70-106) Sodium Level 138 mmol/L (136-145) Potassium Level 4.5 mmol/L (3.5-5.1) Chloride Level 97 mmol/L (98-107) Carbon Dioxide Level 38 mmol/L (20-31) Anion Gap 3 (5-15) Blood Urea Nitrogen 26 mg/dL (9-23) Creatinine 0.94 mg/dL (0.550-1.02) Glomerular Filtration Rate Calc 69 mL/min (>90) BUN/Creatinine Ratio 27.7 (10.0-20.0) Serum Glucose 165 mg/dL (74-106) Calcium Level 9.1 mg/dL (8.7-10.4) Total Bilirubin 0.8 mg/dL (0.2-1.0) Aspartate Amino Transferase (AST) 22 U/L (13-40) Alanine Aminotransferase (ALT) 14 U/L (7-40) Alkaline Phosphatase 64 U/L (46-116) Total Protein 6.4 g/dL (5.7-8.2) Albumin 3.5 g/dL (3.2-4.8) White Blood Count 10.0 10^3/uL (4.4-10.8) Red Blood Count 5.48 10^6/uL (4.0-5.20) Hemoglobin 15.1 g/dL (12.2-16.2) Hematocrit 47.7 % (36.0-46.0) Mean Corpuscular Volume 87.1 fL (80.0-100.0) Mean Corpuscular Hemoglobin 27.5 pg (28.0-32.0) Mean Corpuscular Hemoglobin Concent 31.6 g/dL (32.0-36.0) Red Cell Distribution Width 15.7 % (11.8-14.3) Platelet Count 200 10^3/uL (140-450) Mean Platelet Volume 7.9 fL (6.9-10.8) Neutrophils (%) (Auto) 62.7 % (37.0-80.0) Lymphocytes (%) (Auto) 28.8 % (10.0-50.0) Monocytes (%) (Auto) 7.2 % (0.0-12.0) Eosinophils (%) (Auto) 0.7 % (0.0-7.0) Basophils (%) (Auto) 0.6 % (0.0-2.0) Neutrophils # (Auto) 6.3 10 ^3/uL (1.6-8.6) Lymphocytes # (Auto) 2.9 10 ^3/uL (0.4-5.4) Monocytes # (Auto) 0.7 10 ^3/uL (0-1.3) Eosinophils # (Auto) 0.1 10 ^3/uL (0-0.8) Basophils # (Auto) 0.1 10 ^3/uL (0-0.2) Nucleated Red Blood Cells 0.1 % Test 02/11/25 12:28 02/11/25 11:30 02/11/25 05:36 02/10/25 22:26 Prothrombin Time 11.9 sec (9.3-11.8) Prothrombin Time INR 1.14 (0.9-1.15) Activated Partial Thromboplast Time 25.6 SEC (24.5-34.5) Vitamin D 25-Hydroxy 24.9 ng/mL (30.0-100) Influenza Type A Antigen Negative (Negative) Influenza Type B Antigen Negative (Negative) SARS-CoV-2 Antigen (Rapid) Negative (NEGATIVE) Hemoglobin A1c 6.3 % A1C (<5.7) Magnesium Level 1.8 mg/dL (1.6-2.6) Thyroid Stimulating Hormone (TSH) 0.64 uIU/mL (0.55-4.78) Urine Color Yellow (Yellow) Urine Clarity Turbid (Clear) Urine pH 5.5 (5.0-9.0) Urine Specific [place] 1.028 (1.001-1.035) Urine Protein 1+ (Negative) Urine Ketones Negative (Negative) Urine Blood 1+ /uL (Negative) Urine Nitrite Negative (Negative) Urine Bilirubin Negative (Negative) Urine Urobilinogen 3 mg/dL (Negative) Urine Leukocyte Esterase Negative /uL (Negative) Urine RBC 7 /hpf (0 - 4) Urine Microscopic WBC 2 /HPF (0-5) Urine Squamous Epithelial Cells Mod /hpf (<5) Urine Bacteria Few /hpf (None Seen) Urine Mucus Few (None Seen) Urine Glucose Trace mg/dL (Normal) Test 02/10/25 19:00 02/10/25 15:57 Lactic Acid Level 1.1 mmol/L (0.4-2.0) Troponin I High Sensitivity 13 ng/L (</=34) B-Type Natriuretic Peptide 150.89 pg/mL (0-100) Other Laboratory Tests 02/13/25 08:55 02/12/25 06:48 Brief Hx & Hospital Course: Patient: A 59-year-old female with a past medical history of heart failure with preserved ejection fraction (EF 55%), COPD on 2L home oxygen, diabetes mellitus type 2, hypertension, nephrolithiasis, obesity, probable obstructive sleep apnea and anxiety disorder. Hospital Course: The patient was admitted with presyncope, dizziness, and shortness of breath with bilateral lower extremity edema, worked up showed chronic venous insufficiency. She was started on IV Lasix with titration based on response. Echocardiogram showed an EF of 52-55%, moderate right ventricular dilation, and a moderately high RVSP of 45 mmHg. She was managed with diuresis, oxygen supplementation, and optimization of heart failure therapy, resulting in symptom improvement. Disposition: The patient is stable for discharge with follow-up in the [place] clinic. Patient lying in bed, in no acute distress General: Well-built, afebrile, palor, mucosae are moist Cardiovascular: Regular S1 and S2. No murmurs, gallops or rubs. No JVD elevation. Bilateral 3+ pitting edema Respiratory: bilateral crackles basilar region, bilateral 3+ pitting edema. Bilateral signs of chronic venous insufficiency. Abdomen: Soft, nontender, nondistended, normoactive bowel sounds, no rebound tenderness, no organomegaly, no masses Genitourinary: Deferred MSK/skin: Mobilizes 4 limbs. Skin is dry and warm Neurological: No motor, no sensitive deficits, normal speech. Pupils are isocoric and reactive. Psych/Mental Status: A/Ox3 Case discussed with Dr Schulz Consults/Reason for consult psych due to depression and cardio due to chf exacerbation Operations or Procedures EXAM: LIMITED Two-dimensional echocardiogram with contrast. Blood Pressure: 141/87 mmHg INDICATION CHF Exacerbtion RISK FACTORS Obesity: Height: 5'3, Weight: 326 DIMENSIONS LVDd 4.6 (3.8-5.7cm) LA (2D) 4.0 (1.9-4.0cm) Aortic Root 3.1 (2.0- 3.7cm) LVDs 3.4 (2.5-4.0cm) LA (MM) (1.9-4.0cm) Aortic Cusp Exc 2.0 (1.5- 2.0cm) EF (%) 52.0 (55-70%) Rt. Atrium 3.4 (1.9-4.0cm) Asc. Aorta 3.7 cm IVSd 1.2 (0.7-1.1cm) RV (D) 5.0 (1.8-2.4cm) PWd 1.3 (0.7-1.1cm) Mitral Valve Mitral Mitral Stenosis E wave 1.08m/s MV Mean GR. mmHg A wave 1.24m/s MV Peak GR. 69mmHg E/A ratio 0.9 2D MVA cm2 DECEL Time 267ms PRESS 1/2 Time ms Aortic Valve Aortic Valve Aortic Stenosis V1 1.51m/s AO Mean GR. 7mmHg V2 1.83m/s AO Peak GR. 13mmHg LVOT Diameter 2.2 (1.8-2.4cm) Doppler OLIVIA 3.14cm2 Pulmonic Valve V2 0.89m/s Tricuspid Valve TR Velocity 2.68m/s RVSP 45mmHg Other Information Quality : Technically Limited Rhythm : Technically limited study due to body habitus.patient position. Conclusion LV EF IS 65% AND IS NORMAL MODERATELY DILATED RV RVSP IS 45 MM OF HG AND IS MODERATELY HIGH NORMAL VALVES NO EFFUSION Condition at Discharge: Stable Final Diagnosis/Problems List Likely diastolic congestive heart failure-NYHA class 3 Uncontrolled hypertension Hypertensive heart disease with diastolic dysfunction Acute hypoxic respiratory failure on chronic respiratory failure secondary to above Anxiety ? generalized anxiety disorder Morbid obesity Probable obstructive sleep apnea Vitamin-D deficiency Diabetes mellitus type 2-hemoglobin A1c 6.3 MRSA nares positive Ruled out orthostatic hypotension COPD-no exacerbation on 2 L home oxygen Discharge Disposition: Home Discharge Instruct/Medications Diet: Cardiac 2g Na,low cholest Activity: Light activity Follow Up/Referral: f/u dc clinic Medications: see prescription Discharge Statement: "Patient was advised to return to the ER or call 911 if any headaches, dizziness, shortness of breath, chest pain, abdominal pain, bleeding, fevers, or worsening of medical condition. Patient was counseled about treatment plan, medications, possible side effects, patientverbalized understanding. All questions were answered to the best of my ability. This discharge took greater then 30 minutes in planning, reviewing documentation, counseling the patient, and discussing with other team members." ASSESSMENT ASSESSMENT Assessment acute respiratory failure acute HF exacerbation Date of Service: Feb 13, 2025 Billing Provider: JEAN CLAUDE SCHULZ MD Common Visit Codes: 90879-PTD/OBS DISCH DAY >30min LAURE MASTERS RESIDENT Feb 13, 2025 15:58 JEAN CLAUDE SCHULZ MD Feb 14, 2025 22:16
--- NOTE | 2025-02-13 16:30 | DVH ---
Procedure: XY CHEST XRAY 1 VIEW 02/13/2025 04:05 PM Indication: fu pulmonary congestion Comparison: XY CHEST PORTABLE on DOS: 02/10/25, XY CHEST PORTABLE on DOS: 03/22/24, XY CHEST PORTABLE o n DOS: 03/20/24 FINDINGS: Lines and Tubes: None. Cardiomediastinal: The heart is moderately enlarged . Pulmonary vasculature is prominent. Atheroscler otic calcification of the aortic arch noted. Lungs: Suggestion of small bilateral pleural effusions. Mild bilateral lower lung zone pulmonary opa cities noted. No pneumothorax. Bones/soft tissues: No acute abnormality is noted. IMPRESSION: 1. Persistent CHF with improving bilateral pulmonary opacities.
--- NOTE | 2025-02-13 18:59 | DVHPN2 ---
Progress Note - Dictate Date Seen: Feb 13, 2025 Medical Necessity Reason Pt with a Central, PICC or Fol: No Subjective Patient was seen and evaluated in follow up. Patient has no new complaints at this time. Echocardiogram shows an EF of 65%. Patient denies any cardiac symptoms. Patient is cardiac stable for discharge. Telemetry reviewed. vital signs Vital Sign Date Time Temp Pulse Resp B/P (MAP) Pulse Ox O2 Delivery O2 Flow Rate FiO2 02/13/25 17:00 98.1 84 20 129/77 (94) 93 98.1 02/13/25 11:15 Nasal Cannula* 2 28 Total Intake and Output 02/12/25 02/12/25 02/13/25 15:00 23:00 07:00 Intake Total 448 ml 675 ml Output Total 1200 ml 950 ml Balance -752 ml -275 ml objective GENERAL: Awake, alert, oriented. Obese LUNGS: Bilateral wheezing posterior lung malagon . CARDIOVASCULAR: Heart sounds are good. ABDOMEN: Soft. EXT: Bilateral lower extremity edema. laboratory and microbiology Laboratory Tests 02/13/25 08:55 02/12/25 06:48 Test 02/13/25 08:55 Range/Units Serum Glucose 165 H 74-106 mg/dL Problem List Pneumonia. Acute hypoxic respiratory failure. CHF exacerbation. COPD exacerbation. Assessment/Plan Continued all current supportive medical care. Morphine and [place] for pain management. IV antibiotics as ordered. Coreg. DVT prophylactics. Diuretics with Lasix. Additional plan as per the hospital course. Dietary Evaluation Review Recommendations by RD: Dietary education by RD Comments: 1) Continue to encourage optimal PO intake 2) Refer to outpatient RD/CDCES for weight management and d/t elevated BG levels 3) F/u with cardiology and pulmonology 4) Continue to monitor I&O, labs, and skin integrity Expected Outcomes/Goals: Goals/Expected Outcomes: 1) appetite and labs to improve 2) f/u in 3-5 days Plan discussed with: Patient SCHUYLER PLUMMER MD Feb 13, 2025 18:15
== END 2025-02-13 17:10 | disposition home or self-care (01) | DRG 194 ==
LOC: ER 15:06 → EDBD 15:06 → OVERFLOW 20:18 → TELE-WESTW 23:24 → WEST WING 02-13 09:17
PROVIDERS: ADMIT Internal Medicine; ATTEND Internal Medicine
DX: I11.0 Hypertensive heart disease with heart failure (principal); J96.21 Acute and chronic respiratory failure with hypoxia; I50.33 Acute on chronic diastolic (congestive) heart failure; Z68.43 Body mass index [BMI] 50.0-59.9, adult; J44.9 Chronic obstructive pulmonary disease, unspecified; E55.9 Vitamin D deficiency, unspecified; G47.33 Obstructive sleep apnea (adult) (pediatric); E66.01 Morbid (severe) obesity due to excess calories; F41.9 Anxiety disorder, unspecified; Z20.822 Contact with and (suspected) exposure to COVID-19; F32.A Depression, unspecified; E11.9 Type 2 diabetes mellitus without complications; F17.210 Nicotine dependence, cigarettes, uncomplicated; Z90.710 Acquired absence of both cervix and uterus; Z88.1 Allergy status to other antibiotic agents; Z83.3 Family history of diabetes mellitus; Z87.442 Personal history of urinary calculi; Z90.49 Acquired absence of other specified parts of digestive tract; Z79.84 Long term (current) use of oral hypoglycemic drugs; Z79.899 Other long term (current) drug therapy; Z91.018 Allergy to other foods
CPT/HCPCS: 36415; 71045; 80048; 80053; 81001; 82306; 82607; 82962; 83036; 83605; 83735; 83880; 84443; 84484; 85025; 85610; 85730; 87040; 87081; 87426; 87804; 93005; 93306; 93970; 94640; 96374; 97110; 97116; 97163; 97530; G0378; J1815; J3490

== ENCOUNTER 2025-03-20 05:36 | Inpatient (IN) | payer MEDICAID ==
[~2025-03-20] VITALS: Ht 162.6 cm; Wt 155.4 kg
[~2025-03-20 05:36] MED LIST changes: +CARV-214 PO; -CITA10TA5 PO; +EMPA1TAB PO; +FURO40TA4 PO; +HYDR-4069 PO; +IBUP1TAB5 PO; +NALO4SPR3 NAS; +POTA-180 PO
--- NOTE | 2025-03-20 06:26 | ED.PDOC ---
Altered Mental Status HPI Comments 59 y.o female with PMHx of COPD, DM, HTN, CAD, ovarian cancer, and CHF, presents to the ED via EMS for an evaluation of multiple syncopal episodes x 1 month. Patient reports feeling dizzy at this time which is described as the room spinning. Patient also mentions neck pain x 1 year that has recently worsened and radiates to her shoulders. Patient denies any SOB, chest pain, fever, chills, sick contact, recent travel outside the country. She admits to tobacco use but does state cutting back from one pack a day to occasionally smoking. Patient is on home oxygen and mentions she is non ambulatory at home. Chief Complaint: Neck Pain Time Seen by MD: 06:18 Primary Care Provider: ABELINO Reviewed Notes: Nurses Notes, Analyst Market Intelligence Notes, Medications, Allergies Allergies: Coded Allergies: [place] (Verified Allergy, Unknown, 04/04/21) Vancomycin (Verified Allergy, Unknown, 04/03/21) Hydromorphone (Unverified Adverse Reaction, Intermediate, 02/11/25) Home Meds Active Scripts Carvedilol (COREG) 3.125 Mg Tab, 3.125 MG PO Q12HR for 30 Days, #60 TAB Prov:LAURE MASTERS RESIDENT 02/13/25 Empagliflozin (Jardiance) 10 Mg Tab, 10 MG PO DAILY for 30 Days, #30 TAB Prov:LAURE MASTERS RESIDENT 02/13/25 Reported Medications Varenicline Tartrate (Varenicline Starti... 0.5 mg X 11 & 1 mg X 42) 1 Tab Tab Use as directed. 03/02/24 Furosemide (Furosemide) 20 Mg Tab, 1 TAB PO DAILY 03/02/24 Hydrocodone-Acetaminophen (Hydrocodone Bitartrate/AC 5-325 mg) 1 Tab Tab, 1 TAB PO Q8HR PRN 03/02/24 Ibuprofen Micronized (Ibuprofen) 800 Mg Tab, 1 TAB PO Q12HR PRN 03/02/24 Semaglutide (Ozempic) 4 Mg/3 Ml Inj, 1 MG SC QWEEKLY 03/02/24 Metformin HCl (Metformin Hydrochloride) 1,000 Mg Tab, 1 TAB PO BID 03/02/24 Gabapentin (Gabapentin) 600 Mg Tab, 600 MG PO TID for peripheral neuropathy for 30 Days, MG 04/03/21 Information Source: Patient Mode of Arrival: EMS Severity: Moderate Timing: Months (1) Duration: Since onset Quality: Decreased Alertness Recent: None History of: Diabetes Associated Signs and Symptoms: Other Past Medical History PAST MEDICAL HISTORY: Cancer, CHF, COPD, DM, HTN, Kidney Stones Surgical History: Cholecystectomy, Hysterectomy 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: Ovarian Cancer, Ovarian Cysts Family History Family History: Family hx of DM Social History Smoker: Cigarettes Alcohol: Denies ETOH Use Drugs: Denies Drug Use Lives In: Home Constitutional: denies: chills, diaphoresis, fatigue, fever, malaise, sweats, weakness, others EENTM: denies: blurred vision, double vision, ear bleeding, ear discharge, ear drainage, ear pain, ear ringing, eye pain, eye redness, hearing loss, mouth pain, mouth swelling, nasal discharge, nose bleeding, nose congestion, nose pain, photophobia, tearing, throat pain, throat swelling, voice changes, others Respiratory: denies: cough, hemoptysis, orthopnea, SOB at rest, shortness of breath, SOB with excertion, stridor, wheezing, others Cardiovascular: reports: syncope; denies: chest pain, dizzy spells, diapho resis, Dyspnea on exertion, edema, irregular heart beat, left arm pain, lightheadedness, palpitations, PND, others Gastrointestinal: denies: abdomen distended, abdominal pain, blood streaked bowels, constipated, diarrhea, dysphagia, difficulty swallowing, hematemesis, melena, nausea, poor appetite, poor fluid intake, rectal bleeding, rectal pain, vomiting, others Genitourinary: denies: abnormal vagina bleeding, burning, dyspareunia, dysuria, flank pain, frequency, hematuria, incontinence, pain, , vagina discharge, urgency, others Neurological: denies: dizziness, fainting, headache, left sided numbness, left sided weakness, numbness, paresthesia, pre-existing deficit, right sided numbne ss, right sided weakness, seizure, speech problems, tingling, tremors, weakness, others Musculoskeletal: reports: neck pain; denies: back pain, gout, joint pain, joint swelling, muscle pain, muscle stiffness, others Integumetry: denies: bruises, change in color, change in hair/nails, dryness, laceration, lesions, lumps, rash, wounds, others Allergic/Immunocompromised: denies: Difficulty Healing, Frequent Infections, Hives, Itching, others Hematologic/Lymphatic: denies: anemia, blood clots, easy bleeding, easy bruising, swollen glands, others Endocrine: denies: excessive hunger, excessive sweating, excessive thirst, excessive urination, flushing, intolerance to cold, intolerance to heat, unexplained weight gain, unexplained weight loss, others Psychiatric: denies: anxiety, bipolar disorder, depression, hopeless, panic disorder, schizophrenia, sleepless, suicidal, others All Other Systems: Reviewed and Negative Physical Exam General Appearance: Moderate Distress, Obese HEENT: Normal ENT Inspection, Pharynx Normal, TMs Normal Neck: Full Range of Motion, Non-Tender, Normal, Normal Inspection Respiratory: Wheezing Cardiovascular: No Edema, No JVD, No Murmur, No Gallop, Normal Peripheral Pulses, Regular Rate/Rhythm Breast Exam: Deferred Gastrointestinal: No Organomegaly, Non Tender, No Pulsatile Mass, Normal Bowel Sounds, Soft Genitalia: Deferred Pelvic: Deferred Rectal: Deferred Extremities: No calf tenderness, Pedal edema Musculoskeletal : Apperance: Normal Neurologic: Alert, No Motor Deficits, No Sensory Deficits Cerebellar Function: NOT DONE Reflexes: NOT DONE Skin: Normal Color Peripheral Pulses: 3+ Radial (R), 3+ Radial (L) Lymphatic: No Adenopathy EKG EKG : [place]: Normal Cardiac Rhythm: NSR Was a procedure done? Was a procedure done?: No Differential Diagnosis (ALOC) Differential Diagnosis: Dehydration, Sepsis, Hypoxemia, Heart Failure, Renal Failure X-Ray, Labs, Meds, VS Vital Signs Date Time Temp Pulse Resp B/P (MAP) Pulse Ox O2 Delivery O2 Flow Rate FiO2 03/20/25 05:36 97.7 93 16 171/102 (125) 92 97.7 Patient alert. Complaining of dizziness. Blood pressure elevated. Heart rate within normal limits. Placed on oxygen. Continues to smoke cigarettes. Counseled patient on effects of smoking cigarettes for 15 minutes. Was given clonidine. Good muscle strength. Possible autonomic disorder. Reviewed her history. Explained to the patient. Continue monitoring. Time of 1ST Reevaluation: 06:21 Reevaluation 1ST: Unchanged Patient Education/Counseling: Diagnosis, Treatment, Prognosis Family Education/Counseling: No Family Present Departure 1 Departure Time of Disposition: 06:31 Impression: Primary Impression: COPD with acute exacerbation Additional Impressions: Hypertensive urgency Autonomic disorder Disposition: ADMITTED INPATIENT Admit to: Med Surg Condition: Guarded Critical Care Note Critical Care Time?: Yes (90 min-critical care time only) Critical care comment: Placed on oxygen continue to monitor Stability Stability form required: No Heart Score Heart Score: Heart Score Response (Comments) Value History Slightly Suspicious 0 EKG Normal 0 Age 45-64 1 Risk Factors >3 or Hx ASHD 2 Troponin Normal limit 0 Total 3 I personally scribed for YURIY RUFF MD ([email or web address]) on 03/20/25 at 06:26. Electronically submitted by Wendy Coffey ([facility]). YURIY RUFF MD Mar 20, 2025 06:26
[2025-03-20] MEDS: methylPREDNISolone SOD SUCC 125 MG/2 ML VL IV ONE (06:48)
[2025-03-20 06:59] LABS: Basophils # (auto) 0 10 ^3/uL (0-0.2); Chloride 102 mmol/L (98-107); Eosinophils # (auto) 0.1 10 ^3/uL (0-0.8); Monocytes # (auto) 0.7 10 ^3/uL (0-1.3); Potassium 3.6 mmol/L (3.5-5.1)
[2025-03-20 07:00] LABS: Anion Gap 5 (5-15)
[2025-03-20 07:01] LABS: Basophils % (auto) 0.4 % (0.0-2.0); Carbon Dioxide 38 mmol/L (20-31); Eosinophils % (auto) 1.6 % (0.0-7.0); Lymphocytes % (auto) 26.1 % (10.0-50.0); Mean Corpuscular Hemoglobin 26.9 pg (28.0-32.0); Mean Corpuscular Hgb Conc. 31.2 g/dL (32.0-36.0); Monocytes % (auto) 9.4 % (0.0-12.0); Neutrophils # (auto) 4.9 10 ^3/uL (1.6-8.6); Neutrophils % (auto) 62.5 % (37.0-80.0); Platelet Count (auto) 162 10^3/uL (140-450); Red Blood Cells 5.23 10^6/uL (4.0-5.20); Red Cell Distribution Width 17.1 % (11.8-14.3); Sodium 145 mmol/L (136-145); White Blood Cell 7.8 10^3/uL (4.4-10.8)
[2025-03-20 07:05] LABS: BUN/Creatinine Ratio 33.3 (10.0-20.0); Glucose 78 mg/dL (74-106)
[2025-03-20 07:06] LABS: Blood Urea Nitrogen 27 mg/dL (9-23)
[2025-03-20 07:20] VITALS: O2SAT 93
[2025-03-20] MEDS: IPRATROPIUM BROM 0.5 MG/2.5ML INH SOL NEB ONE (07:20)
[2025-03-20] MEDS: ALBUTEROL SULF 2.5 MG/0.5ML(0.5%) NEB SOLN NEB ONE (07:21)
--- NOTE | 2025-03-20 07:27 | DVH ---
Procedure: XY CHEST PORTABLE 03/20/2025 06:44 AM Indication: sob Comparison: XY CHEST XRAY 1 VIEW on DOS: 02/13/25, XY CHEST PORTABLE on DOS: 02/10/25, XY CHEST PORTABL E on DOS: 03/22/24 FINDINGS: Lines and Tubes: None. Cardiomediastinal: The heart is moderately enlarged . Pulmonary vasculature is prominent. Lungs: There is blunting of right costophrenic angle. Bilateral lower lung zone pulmonary opacities a re seen. Interstitial opacities noted bilaterally. No pneumothorax. Bones/soft tissues: No acute abnormality is noted. IMPRESSION: 1. CHF, bilateral pleural effusions and bilateral pulmonary edema.
[2025-03-20] MEDS: cloNIDine HCL 0.1 MG TAB PO ONE (07:39)
[2025-03-20] MEDS ORDERED: ACETAMINOPHEN 325 MG TAB PO PRN (10:15)
[2025-03-20] MEDS ORDERED: NITROGLYCERIN 0.4 MG SL TAB SL PRN (10:15)
[2025-03-20] MEDS ORDERED: DOCUSATE SOD 100 MG CAP PO PRN (10:15)
[2025-03-20] MEDS ORDERED: ONDANSETRON HCL 4 MG/2 ML VIAL IV PRN (10:15)
[2025-03-20] MEDS ORDERED: MORPHINE SULFATE INJ 2 MG/ml SYRG IV PRN ×2 (10:15)
[2025-03-20] MEDS ORDERED: DEXTROSE (50%) 50ML SYRG IV PRN (10:30)
[2025-03-20] MEDS ORDERED: ALBUTEROL SULF 2.5 MG/0.5ML(0.5%) NEB SOLN NEB PRN (10:45)
[2025-03-20] MEDS ORDERED: IPRATROPIUM BROM 0.5 MG/2.5ML INH SOL NEB PRN (10:45)
--- NOTE | 2025-03-20 11:06 | DVHHP2 ---
History of Present Illness Reason for Visit: CHF exacerbation History of Present Illness 59-year-old female presented to the ED via EMS for syncope, dizziness and patient also mentions neck pain x1 year, on chronic oxygen. Patient was recently admitted in January for similar symptoms, patient had echocardiogram which showed ejection fraction of 65%, RVSP 45 with right ventricular dilation. 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 Almaguer, she states she forgot. Patient did not follow up with Pulmonary, she forgot about this as well. It was recommended to patient that she follow up with Pulmonary for a sleep study, she has not followed through on that as well, she does state that she snores, wakes gasping at nighttime and does not feel well rested during the daytime. 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 Bang due to her being noncompliant with follow-up appointments. Per patient it was because she did not have transportation to her appointments. Patient's chest x- ray shows CHF with pulmonary edema and bilateral pleural effusions. Patient has +2 pitting edema to the lower extremities. When patient stands up to walk she is visibly short of breath and states she feels dizzy and unsteady on her feet. Admitting patient to telemetry giving Lasix antibiotics, steroids, ultrasound to check pleural effusion amount, thoracentesis if needed. Past Surgical History Cholecystectomy, hysterectomy Family History Denies Smoke: <1 pack per day ALCOHOL: none Drugs: None Lives: Other (Home) Review of Systems Constitutional: No: Fever, Chills, Sweats, Weakness, Malaise, Other Eyes: No: Pain, Vision change, Conjunctivae inflammation, Eyelid inflammation, Other, Redness ENT: No: Ear pain, Ear discharge, Nose pain, Nose discharge, Nose congestion, Mouth pain, Mouth swelling, Throat pain, Throat swelling, Other Respiratory: Shortness of breath, SOB with excertion, Wheezing Cardiovascular: Edema (Bilateral lower extremities +2); No: Chest Pain, Palpitations, Orthopnea, Paroxysmal Noc. Dyspnea, Lt Headedness, Other Gastrointestinal: No: Nausea, Vomiting, Abdominal Pain, Diarrhea, Constipation, Melena, Hematochezia, Other Genitourinary: No Dysuria, No Frequency, No Incontinence, No Hematuria, No Retention, No Other Musculoskeletal: neck pain (Chronic x1 year); No: other, shoulder pain, arm pain, back pain, hand pain, leg pain, foot pain Skin: Other (Lower extremity discoloration due to frequent edema); No: Rash, Lesions, Jaundice, Bruising Neurological: Other (Dizziness); No: Weakness, Numbness, Incoordination, Change in speech, Confusion, Seizures Allergies: Coded Allergies: [place] (Verified Allergy, Unknown, 04/04/21) Vancomycin (Verified Allergy, Unknown, 04/03/21) Hydromorphone (Unverified Adverse Reaction, Intermediate, 02/11/25) Medications Current Medications Medications Dose Ordered Sig/Chance Route Start Time Stop Time Status Last Admin Dose Admin Ondansetron HCl 4 mg Q4HP PRN IV 03/20/25 10:15 Docusate Sodium 100 mg BIDPRN PRN PO 03/20/25 10:15 Enoxaparin Sodium 40 mg DAILY SC 03/21/25 10:00 Acetaminophen 650 mg Q6HP PRN PO 03/20/25 10:15 Nitroglycerin 0.4 mg Q5MINP PRN SL 03/20/25 10:15 Morphine Sulfate 2 mg Q30M PRN IV 03/20/25 10:15 Acetaminophen/ Hydrocodone Bitart 1 tab Q6HP PRN PO 03/20/25 10:15 Morphine Sulfate 2 mg Q6HPRN PRN IV 03/20/25 10:15 Azithromycin 250 ml @ 125 mls/hr DAILY IV 03/20/25 10:30 UNV Ceftriaxone Sodium 50 ml @ 100 mls/hr DAILY@09 IV 03/20/25 10:30 Furosemide 40 mg DAILY IV 03/20/25 10:30 Potassium Chloride 20 meq DAILY PO 03/21/25 10:00 Pantoprazole Sodium 40 mg DAILY@0600 PO 03/21/25 06:00 Diagnostic Test (Pha) 1 strip ACHS 03/20/25 11:30 Insulin Human Regular ACHS SC 03/20/25 11:30 Dextrose 50 ml UD PRN IV 03/20/25 10:30 Methylprednisolone Sodium Succinate 40 mg Q8HR IV 03/20/25 14:00 Carvedilol 3.125 mg Q12HR PO 03/20/25 22:00 Albuterol 2.5 mg Q4HPRN PRN NEB 03/20/25 10:45 Ipratropium [place] 0.5 mg Q4HPRN PRN NEB 03/20/25 10:45 Exam Vital Signs Vital Signs Date Time Temp Pulse Resp B/P (MAP) Pulse Ox O2 Delivery O2 Flow Rate FiO2 03/20/25 08:44 130/57 03/20/25 07:40 Room Air* 0 21 03/20/25 07:40 98.1 88 14 92 98.1 General Appearance: Alert, Oriented X3, Cooperative, mild distress HEENT: Atraumatic, PERRLA, EOMI, Mucous membr. moist/pink Respiratory: Normal air movement, Other (Some slight wheezes bilateral, diminished breath sounds bilateral lower lobes) Cardiovascular: Regular rate, Normal S1, Normal S2, No murmurs Abdominal: Normal bowel sounds, Soft, No tenderness, No hepatospenomegaly, No masses Extremities: No clubbing, No cyanosis, Normal pulses, Other (Edema to lower extremities +2-3 ) Skin: No rashes, No breakdown, No significant lesion Neuro: Normal gait, Normal speech, Strength at 5/5 X4 ext, Normal tone, Sensation intact, Cranial nerves 3-12 NL, Reflexes 2+ Psych/Mental Status: Mental status NL, Mood NL Labs/Xrays Labs and imaging reviewed Labs Test 03/20/25 09:34 03/20/25 06:35 Range/Units Troponin I High Sensitivity 12 </=34 ng/L White Blood Count 7.8 4.4-10.8 10^3/uL Red Blood Count 5.23 H 4.0-5.20 10^6/uL Hemoglobin 14.0 12.2-16.2 g/dL Hematocrit 45.0 36.0-46.0 % Mean Corpuscular Volume 86.0 80.0-100.0 fL Mean Corpuscular Hemoglobin 26.9 L 28.0-32.0 pg Mean Corpuscular Hemoglobin Concent 31.2 L 32.0-36.0 g/dL Red Cell Distribution Width 17.1 H 11.8-14.3 % Platelet Count 162 140-450 10^3/uL Mean Platelet Volume 7.8 6.9-10.8 fL Neutrophils (%) (Auto) 62.5 37.0-80.0 % Lymphocytes (%) (Auto) 26.1 10.0-50.0 % Monocytes (%) (Auto) 9.4 0.0-12.0 % Eosinophils (%) (Auto) 1.6 0.0-7.0 % Basophils (%) (Auto) 0.4 0.0-2.0 % Neutrophils # (Auto) 4.9 1.6-8.6 10 ^3/uL Lymphocytes # (Auto) 2.0 0.4-5.4 10 ^3/uL Monocytes # (Auto) 0.7 0-1.3 10 ^3/uL Eosinophils # (Auto) 0.1 0-0.8 10 ^3/uL Basophils # (Auto) 0 0-0.2 10 ^3/uL Nucleated Red Blood Cells 0.0 % Sodium Level 145 136-145 mmol/L Potassium Level 3.6 3.5-5.1 mmol/L Chloride Level 102 98-107 mmol/L Carbon Dioxide Level 38 H 20-31 mmol/L Anion Gap 5 5-15 Blood Urea Nitrogen 27 H 9-23 mg/dL Creatinine 0.81 0.550-1.02 mg/dL Glomerular Filtration Rate Calc 83 >90 mL/min BUN/Creatinine Ratio 33.3 H 10.0-20.0 Serum Glucose 78 74-106 mg/dL Calcium Level 9.0 8.7-10.4 mg/dL Assessment/Plan Assessment/Plan CHF exacerbation Chest x-ray shows CHF, bilateral pleural effusions and pulmonary edema Lasix 40 mg IV Fall risk prevention strategies Ultrasound to check fluid, thoracentesis if needed Hypertensive urgency Better controlled now Coreg p.o. q.12 hours Acute on chronic hypoxic respiratory failure Supplemental oxygen p.r.n. to keep SpO2 greater than 90% COPD exacerbation Med nebs p.r.n. Methylprednisone Q8- taper down Prophylactic azithromycin and Rocephin Nicotine dependence Half a pack or less a day per patient Discussed smoking cessation with patient for at least 10 minutes Nicotine patch declined by patient Diabetes mellitus type 2 Accu-Cheks AC and HS insulin sliding scale Resume home dose Gabapentin Chronic back and leg pain Resume home [place] dose Tylenol for mild pain Morphine for severe pain Zofran p.r.n. nausea VTE prophylaxis-Lovenox GI prophylaxis-Protonix Patient would benefit from palliative/home health or similar once closer to discharge to assist to connect to resources/specialists/transportation and prevent readmission Plan discussed with: Patient My Orders Orders - HUIZAR,ADRIAN J MATHEMATICAL PHYSICIST Procedure Category Date Status Time Admit ADMIT 03/20/25 Transmitted 10:12 Allergies FELIX 03/20/25 In Process 10:12 Code Status CODE 03/20/25 Transmitted 10:12 Oxygen Per Hour RT 03/20/25 Transmitted 10:12 Ondansetron Hcl PHA 03/20/25 In Process (Zofran) 10:15 Docusate Sodium PHA 03/20/25 In Process Capsule (Colace 10:15 Enoxaparin Sodium PHA 03/21/25 In Process (Lovenox) 10:00 Fall Risk Precautions FELIX 03/20/[address] 10:12 Complete Blood Count LAB 03/21/25 Verified 04:00 Comprehensive LAB 03/21/25 Verified Metabolic Panel 04:00 Condition: Serious FELIX 03/20/25 In Process 10:12 Acetaminophen Tablet PHA 03/20/25 In Process (Tylenol Tablet) 10:15 Bedside Commode FELIX 03/20/25 In Process 10:12 Nitroglycerin PHA 03/20/25 In Process Sublingual (Ntrostat 10:15 Morphine Sulfate PHA 03/20/25 In Process Injection 10:15 Stat Ekg For Chest FELIX 03/20/25 In Process Pain 10:12 Notify Md Of Changes FELIX 03/20/25 In Process From Base 10:12 Recreation Officer For [facility] 03/20/25 In Process 24 Hours 10:12 Emergency Dysrhythmia FELIX 03/20/25 In Process Protocol 10:12 Rhythm Strips Once FELIX 03/20/25 In Process Every Shift 10:12 Oxygen By Nasal RT 03/20/25 Transmitted Cannula 10:12 Hydrocodone-Acet PHA 03/20/25 In Process 7.5/325mg Tab ([place] 10:15 Morphine Sulfate PHA 03/20/25 In Process Injection 10:15 Azithromycin 500mg/ PHA 03/20/25 Logged 250ml (Zithromax 50 10:30 Ceftriaxone 1gm/50ml PHA 03/20/25 In Process D5w (Rocephin) 10:30 Furosemide Injection PHA 03/20/25 In Process (Lasix Injection) 10:30 Potassium Er Tablet PHA 03/21/25 In Process (Klor-Con Tablet) 10:00 Pantoprazole Tablet PHA 03/21/25 In Process (Protonix Tablet) 06:00 Glucose Blood PHA 03/20/25 In Process (Accu-Chek Comfort 11:30 Insulin R (Human) PHA 03/20/25 In Process (Insulin R) 11:30 Dextrose 50% Syringe PHA 03/20/25 In Process 10:30 Carvedilol Tablet PHA 03/20/25 In Process (Coreg Tablet) 22:00 Thoracentesis US 03/20/25 Logged 10:30 Albuterol Medneb PHA 03/20/25 In Process (Ventolin Medneb) 10:45 Ipratropium [place] PHA 03/20/25 In Process (Atrovent Medneb) 10:45 Med Mariusz Sub Treatment RT 03/20/25 Logged 10:32 Chest Ultrasound US 03/20/25 Logged Methylprednisolone PHA 03/20/25 In Process Sod Succ (Solu Medrol 14:00 Date of Service: Mar 20, 2025 Billing Provider: ADRIAN HUIZAR Common Visit Codes: [id number] INP/OBS CARE(HIGH) ADRIAN HUIZAR Mar 20, 2025 11:06
[2025-03-20 11:24] VITALS: PULSE 84; RESP 20; O2SAT 90
[2025-03-20] MEDS: methylPREDNISolone SOD SUCC 125 MG/2 ML VL IV SCH (11:43)
[2025-03-20] MEDS: cefTRIAXone 1GM/50ML D5W 50 ML IV SCH (11:44)
[2025-03-20] MEDS: FUROSEMIDE 40 MG/4 ML VIAL IV SCH (11:44)
[2025-03-20] MEDS: AZITHROMYCIN 500MG/ 250ML 250 ML IV SCH (11:46)
[2025-03-20] MEDS: ACCU-CHEK COMFORT CURVE STRIP VI SCH (11:46)
[2025-03-20] MEDS: InsuLIN REG 1unit/0.01ml Soln (100units/ml) SC SCH ×3 (12:00→23:23)
[2025-03-20 13:02] LABS: Urine Bacteria FEW /hpf (None Seen); Urine Blood Negative /uL (Negative); Urine Clarity Clear (Clear); Urine Color Light-Yellow (Yellow); Urine Protein, UAD Negative (Negative); Urine Specific Gravity 1.006 (1.001-1.035); Urine Squamous Epithelial Cell FEW /hpf (<5); Urine Urobilinogen Normal (Negative); Urine WBC 5 /HPF (0-5)
[2025-03-20] MEDS ORDERED: hydrALAZINE HCL 20 MG/ML VL IV PRN (13:30)
[2025-03-20 13:50] VITALS: BP 156/96; PULSE 85; RESP 20; TEMP 97.6; O2SAT 95
--- NOTE | 2025-03-20 13:58 | DVH ---
CLINICAL HISTORY: 59 years old, Female; FLUID CHECK. TECHNIQUE: Grayscale sonographic imaging of the bilateral chest was performed, assisted by color dop pler technique, to evaluate for pleural effusions. COMPARISON: US CHEST ULTRASOUND on DOS: 03/19/24 FINDINGS: Trace right pleural effusion visualized. No left pleural fluid collection identified. IMPRESSION: Trace right pleural effusion.
[2025-03-20 19:05] VITALS: O2SAT 95
[2025-03-20] MEDS: HYDROcodone-ACET 7.5/325MG TAB PO PRN (19:36)
[2025-03-20 20:00] VITALS: PULSE 89; RESP 20; O2SAT 90
[2025-03-20] MEDS: CARVEDILOL 3.125 MG TAB PO SCH (23:06)
[2025-03-21] VITALS (15 sets, daily range): BP systolic 106–152; BP diastolic 61–89; PULSE 75–147; RESP 16–23; TEMP 97.4–97.9; O2SAT 89–97
[2025-03-21 05:51] LABS: Basophils # (auto) 0 10 ^3/uL (0-0.2); Eosinophils # (auto) 0 10 ^3/uL (0-0.8); Monocytes # (auto) 0.2 10 ^3/uL (0-1.3); Neutrophils # (auto) 4.6 10 ^3/uL (1.6-8.6); White Blood Cell 5.8 10^3/uL (4.4-10.8)
[2025-03-21 05:53] LABS: Basophils % (auto) 0.1 % (0.0-2.0); Eosinophils % (auto) 0.1 % (0.0-7.0); Hematocrit 46.2 % (36.0-46.0); Hemoglobin 14.4 g/dL (12.2-16.2); Mean Corpuscular Hemoglobin 26.2 pg (28.0-32.0); Mean Corpuscular Hgb Conc. 31.2 g/dL (32.0-36.0); Mean Corpuscular Volume 83.8 fL (80.0-100.0); Monocytes % (auto) 3.9 % (0.0-12.0); Neutrophils % (auto) 78.9 % (37.0-80.0); Nucleated Red Blood Cells % 0.2 %; Platelet Count (auto) 173 10^3/uL (140-450); Red Blood Cells 5.51 10^6/uL (4.0-5.20); Red Cell Distribution Width 17.3 % (11.8-14.3)
[2025-03-21] MEDS: PANTOPRAZOLE 40 MG TAB PO SCH (05:58)
[2025-03-21 06:06] LABS: Alanine Aminotransferase 10 U/L (7-40); Alkaline Phosphatase 66 U/L (46-116); BUN/Creatinine Ratio 24.1 (10.0-20.0); Blood Urea Nitrogen 20 mg/dL (9-23); Calcium 9.7 mg/dL (8.7-10.4); Potassium 4.2 mmol/L (3.5-5.1); Sodium 141 mmol/L (136-145); Total Protein 6.8 g/dL (5.7-8.2)
[2025-03-21 06:07] LABS: Albumin 3.8 g/dL (3.2-4.8); Bilirubin, Total 0.6 mg/dL (0.2-1.0)
[2025-03-21 06:12] LABS: Anion Gap 5.99999 (5-15); Aspartate Aminotransferase 13 U/L (13-40); Chloride 95 mmol/L (98-107); Glucose 197 mg/dL (74-106)
[2025-03-21 06:13] LABS: Carbon Dioxide > 40 mmol/L (20-31)
[2025-03-21 06:44] LABS: Base Excess 14.1 mmol/L (-2.0-3.0)
[2025-03-21 07:49] LABS: INR 1.19 (0.9-1.15); Partial Thromboplastin Time 25.9 SEC (24.5-34.5); Prothrombin Time 12.4 sec (9.3-11.8)
[2025-03-21 09:10] LABS: Base Excess 13.9 mmol/L (-2.0-3.0)
[2025-03-21] MEDS ORDERED: methylPREDNISolone SOD SUCC 40 MG/ML VL IV SCH (10:00)
[2025-03-21] MEDS: ENOXAPARIN SOD 40 MG/0.4 ML SYRINGE SC SCH (10:14)
[2025-03-21] MEDS: POTASSIUM CHL 20 Meq TABLET PO SCH (10:21)
[2025-03-21] MEDS: IPRATROPIUM BROM 0.5 MG/2.5ML INH SOL NEB SCH (11:16)
[2025-03-21] MEDS: ALBUTEROL SULF 2.5 MG/0.5ML(0.5%) NEB SOLN NEB SCH (11:16)
[2025-03-21] MEDS: FUROSEMIDE 40 MG/4 ML VIAL IV ONE (14:21)
--- NOTE | 2025-03-21 17:05 | DVHPNRES ---
Progress Note Date Seen: Mar 21, 2025 Resident Creating Document: MADELINE HUMPHRIES TAY Has the PT tested + for MRSA If YES, has PT been informed?: No Medical Necessity Reason Pt with a Central, PICC or Fol: No Subjective Review of Systems This is a 59-year-old female with past medical history of HFpEF, COPD (on 2 L of oxygen at home, diabetes type 2, hypertension, came to the hospital due to shortness of breath functional class 4. She was discharged from hospital 1 month back, had admitted due to heart failure exacerbation. Per patient she had shortness of breaths since discharge, has progressively worsened which prompted this visit. She also reports chest discomfort, cough, bilateral lower limb swelling, generalized weakness and fatigue. She denies fever, nausea, vomiting, or any recent bowel or bladder habit changes. Previous hospitalization: Discharged from [facility] on 02/10/2025, had admitted due to CHF exacerbation PMHx: HFpEF, COPD (on 2 L of oxygen at home, diabetes type 2, hypertension, dyslipidemia, morbid obesity, obstructive sleep apnea (recommended CPAP at home, but the patient is noncompliant, diabetes type 2, chronic back pain, anxiety and depression PSHx: Cholecystectomy and hysterectomy Family history: Noncontributory Social history: Current smoker 50 pack year history Home medication: [place], Ozempic, Lasix, gabapentin, carvedilol, Allergic history: Hydromorphone, strawberry, vancomycin Patient seen and examined at the bedside. Patient is still complaining of shortness of breaths. Patient reports: No new complaints Changes from previous H/P or p: No Changes Objective vital signs Vital Sign Date Time Temp Pulse Resp B/P (MAP) Pulse Ox O2 Delivery O2 Flow Rate FiO2 03/21/25 14:35 81 135/78 03/21/25 14:31 20 96 03/21/25 14:25 Nasal Cannula* 4 36 03/21/25 13:00 97.9 97.9 Total Intake and Output 03/20/25 03/20/25 03/21/25 15:00 23:00 07:00 Output Total 800 ml 500 ml Balance -800 ml -500 ml medications Current Medications Medications Dose Ordered Sig/Chance Route Start Time Stop Time Status Last Admin Dose Admin Ondansetron HCl 4 mg Q4HP PRN IV 03/20/25 10:15 Docusate Sodium 100 mg BIDPRN PRN PO 03/20/25 10:15 Enoxaparin Sodium 40 mg DAILY SC 03/21/25 10:00 03/21/25 10:14 40 MG Acetaminophen 650 mg Q6HP PRN PO 03/20/25 10:15 Nitroglycerin 0.4 mg Q5MINP PRN SL 03/20/25 10:15 Morphine Sulfate 2 mg Q30M PRN IV 03/20/25 10:15 Acetaminophen/ Hydrocodone Bitart 1 tab Q6HP PRN PO 03/20/25 10:15 03/21/25 10:16 1 TAB Morphine Sulfate 2 mg Q6HPRN PRN IV 03/20/25 10:15 Azithromycin 250 ml @ 125 mls/hr DAILY IV 03/20/25 10:30 03/21/25 10:15 125 MLS/HR Potassium Chloride 20 meq DAILY PO 03/21/25 10:00 03/21/25 10:21 20 MEQ Pantoprazole Sodium 40 mg DAILY@0600 PO 03/21/25 06:00 03/21/25 05:58 40 MG Diagnostic Test (Pha) 1 strip ACHS 03/20/25 11:30 03/21/25 11:58 1 STRIP Dextrose 50 ml UD PRN IV 03/20/25 10:30 Carvedilol 3.125 mg Q12HR PO 03/20/25 22:00 03/21/25 10:21 3.125 MG Ipratropium [place] 0.5 mg Q4HPRN PRN NEB 03/20/25 10:45 Insulin Human Regular HS SC 03/20/25 22:00 03/20/25 23:23 4 UNITS Insulin Human Regular AC SC 03/20/25 17:00 03/21/25 12:04 9 UNITS Albuterol 2.5 mg Q4HPRN NEB 03/21/25 09:15 03/21/25 14:25 2.5 MG Furosemide 40 mg BIDD IV 03/21/25 18:00 Methylprednisolone Sodium Succinate 40 mg DAILY IV 03/22/25 10:00 Ipratropium [place] 0.5 mg Q4HWA NEB 03/21/25 10:00 03/21/25 14:25 0.5 MG Gabapentin 600 mg TID PO 03/21/25 22:00 Examination General Appearance: Alert, Oriented X3, Cooperative, in severe respiratory distress HEENT: Atraumatic, PERRLA, EOMI, Mucous membrane moist/pink Respiratory: Bilateral crackles and rhonchi Cardiovascular: Regular rate, Normal S1, Normal S2, No murmurs, no chest wall tenderness Abdominal: Normal bowel sounds, Soft, No tenderness, No hepatospenomegaly, No masses Extremities: No clubbing, No cyanosis, No edema, Normal pulses, No tenderness/swelling Skin: No rashes, No breakdown, No significant lesion Neuro: Normal gait, Normal speech, Strength at 5/5 X4 ext, Normal tone, Sensation intact, Cranial nerves 3-12 NL, Reflexes 2+ Psych/Mental Status: Mental status NL, Mood NL laboratory and microbiology Laboratory Tests 03/21/25 05:30 Test 03/21/25 05:30 Range/Units Serum Glucose 197 H 74-106 mg/dL Labs and/or images reviewed: Labs reviewed by me, Image(s) reviewed by me Problem List/Assessment/Plan Problem List/Assessment/Plan Acute on chronic hypoxic respiratory failure, likely due to COPD exacerbation/CHF exacerbation COPD exacerbation Acute on chronic CHF exacerbation History of diastolic heart failure Hypertension Dyslipidemia Ruled out hypertensive urgency Chest x-ray shows, cardiomegaly level bilateral lower zone infiltration Chest U/S shows mild right pleural effusion ABGs shows severe respiratory acidosis with metabolic compensation BiPAP Empiric antibiotic, Rocephin and azithromycin Breathing treatment IV fluid Lasix 40 mg b.i.d. Continue home meds Morbid obesity Obstructive sleep apnea Obesity hyperventilation syndrome BiPAP Uncontrolled diabetes type 2 with hyperglycemia Insulin regular mild SS History of anxiety/depression Chronic back pain Current smoker Smoking cessation per 4 for more than 18 minutes Nicotine patch DIET: Cardiac diet DVT PROPHYLAXIS: Lovenox GI PROPHYLAXIS:: Protonix CODE STATUS: Goal of care discussed for more than 18 minutes, DNR DISPOSITION: Telemetry Patient was counseled for the requirement of BiPAP/CPAP with the patient refuses to use. Patient's status and plan discussed with the patient. Case discussed with Dr. San. Plan discussed with: Patient, Other (RN) My Orders My Orders Orders - MADELINE HUMPHRIES RESDITHAD Procedure Category Date Status Time Albuterol Medneb PHA 03/21/25 In Process (Ventolin Medneb) 09:15 Furosemide Injection PHA 03/21/25 In Process (Lasix Injection) 18:00 Ipratropium Medneb PHA 03/21/25 In Process (Atrovent Medneb) 10:00 Methylprednisolone PHA 03/22/25 In Process Sod Succ (Solu Medrol 10:00 Code Status CODE 03/21/25 Transmitted 10:58 Gabapentin Capsule PHA 03/21/25 In Process (Neurontin Capsule) 22:00 Date of Service: Mar 21, 2025 Billing Provider: JOHN NAZARIO MD Common Visit Codes: [id number] INP/OBS CARE(HIGH) MADELINE HUMPHRIES RESDIENT Mar 21, 2025 17:05 JOHN NAZARIO MD Mar 23, 2025 00:33
[2025-03-21] MEDS: GABAPENTIN 300 MG CAP PO ONE (17:31)
[2025-03-21] MEDS: NICOTINE 21MG/24 HR TOPICAL PATCH TD ONE (17:33)
[2025-03-21] MEDS: FUROSEMIDE 40 MG/4 ML VIAL IV SCH (18:26)
[2025-03-21 19:16] LABS: COVID19 ANTIGEN SOFIA FIA NEGATIVE (NEGATIVE); Rapid Influenza A Negative (Negative); Rapid Influenza B Negative (Negative)
[2025-03-21] MEDS: GABAPENTIN 300 MG CAP PO SCH (21:45)
[2025-03-21 23:37] LABS: Opiate Scree,Urine Neg (NEGATIVE)
[2025-03-21 23:39] LABS: Amphetamine Screen, Urine Neg (NEGATIVE); Barbiturate Scree,Urine Neg (NEGATIVE); Benzodiazephine Screen, Urine Neg (NEGATIVE); Cannabinoid Screen, Urine Neg (NEGATIVE); Cocaine Screen, Urine Neg (NEGATIVE); Phencyclidine Screen, Urine Neg (NEGATIVE)
[2025-03-22] VITALS (16 sets, daily range): BP systolic 103–135; BP diastolic 63–85; PULSE 60–88; RESP 13–19; TEMP 97.9–98.6; O2SAT 91–99
[2025-03-22 07:33] LABS: Basophils # (auto) 0 10 ^3/uL (0-0.2); Basophils % (auto) 0.1 % (0.0-2.0); Eosinophils # (auto) 0.1 10 ^3/uL (0-0.8); Eosinophils % (auto) 0.7 % (0.0-7.0); Hematocrit 46.3 % (36.0-46.0); Hemoglobin 14.5 g/dL (12.2-16.2); Lymphocytes # (auto) 2.7 10 ^3/uL (0.4-5.4); Lymphocytes % (auto) 28.8 % (10.0-50.0); Mean Corpuscular Hemoglobin 26.4 pg (28.0-32.0); Mean Corpuscular Hgb Conc. 31.4 g/dL (32.0-36.0); Mean Corpuscular Volume 84.1 fL (80.0-100.0); Monocytes # (auto) 0.8 10 ^3/uL (0-1.3); Monocytes % (auto) 8.5 % (0.0-12.0); Neutrophils # (auto) 5.9 10 ^3/uL (1.6-8.6); Neutrophils % (auto) 61.9 % (37.0-80.0); Nucleated Red Blood Cells % 0.1 %; Platelet Count (auto) 175 10^3/uL (140-450); Red Cell Distribution Width 16.9 % (11.8-14.3); White Blood Cell 9.5 10^3/uL (4.4-10.8)
[2025-03-22 07:35] LABS: Alanine Aminotransferase 11 U/L (7-40); Albumin 3.8 g/dL (3.2-4.8); Alkaline Phosphatase 63 U/L (46-116); Anion Gap 5 (5-15); Aspartate Aminotransferase 15 U/L (13-40); BUN/Creatinine Ratio 24.7 (10.0-20.0); Blood Urea Nitrogen 19 mg/dL (9-23); Calcium 9.7 mg/dL (8.7-10.4); Potassium 4.1 mmol/L (3.5-5.1); Total Protein 6.8 g/dL (5.7-8.2)
[2025-03-22 07:36] LABS: Bilirubin, Total 0.7 mg/dL (0.2-1.0)
[2025-03-22 07:39] LABS: Carbon Dioxide 38 mmol/L (20-31); Chloride 93 mmol/L (98-107); Glucose 144 mg/dL (74-106); Sodium 136 mmol/L (136-145)
[2025-03-22] MEDS: NICOTINE 21MG/24 HR TOPICAL PATCH TD SCH (10:22)
[2025-03-22] MEDS: methylPREDNISolone SOD SUCC 125 MG/2 ML VL IV SCH (10:24)
--- NOTE | 2025-03-22 18:59 | DVHPNRES ---
Progress Note Date Seen: Mar 22, 2025 Resident Creating Document: MADELINE HUMPHRIES TAY Has the PT tested + for MRSA If YES, has PT been informed?: No Medical Necessity Reason Pt with a Central, PICC or Fol: No Subjective Review of Systems Patient seen and examined at the bedside. Patient is still complaining of shortness of breaths and bilateral lower limb swelling. Patient reports: Feels better Objective vital signs Vital Sign Date Time Temp Pulse Resp B/P (MAP) Pulse Ox O2 Delivery O2 Flow Rate FiO2 03/22/25 17:45 103/61 03/22/25 17:00 98.3 77 19 92 98.3 03/22/25 14:20 Nasal Cannula 4.0 03/22/25 14:20 36 Total Intake and Output 03/21/25 03/21/25 03/22/25 15:00 23:00 07:00 Intake Total 300 ml 600 ml 800 ml Output Total 2350 ml 750 ml Balance 300 ml -1750 ml 50 ml medications Current Medications Medications Dose Ordered Sig/Chance Route Start Time Stop Time Status Last Admin Dose Admin Ondansetron HCl 4 mg Q4HP PRN IV 03/20/25 10:15 Docusate Sodium 100 mg BIDPRN PRN PO 03/20/25 10:15 Enoxaparin Sodium 40 mg DAILY SC 03/21/25 10:00 03/22/25 10:23 40 MG Acetaminophen 650 mg Q6HP PRN PO 03/20/25 10:15 Nitroglycerin 0.4 mg Q5MINP PRN SL 03/20/25 10:15 Morphine Sulfate 2 mg Q30M PRN IV 03/20/25 10:15 Acetaminophen/ Hydrocodone Bitart 1 tab Q6HP PRN PO 03/20/25 10:15 03/22/25 15:50 1 TAB Morphine Sulfate 2 mg Q6HPRN PRN IV 03/20/25 10:15 Azithromycin 250 ml @ 125 mls/hr DAILY IV 03/20/25 10:30 03/22/25 12:24 125 MLS/HR Potassium Chloride 20 meq DAILY PO 03/21/25 10:00 03/22/25 10:22 20 MEQ Pantoprazole Sodium 40 mg DAILY@0600 PO 03/21/25 06:00 03/22/25 05:43 40 MG Diagnostic Test (Pha) 1 strip ACHS 4/20/25 11:30 03/22/25 17:00 1 STRIP Dextrose 50 ml UD PRN IV 03/20/25 10:30 Carvedilol 3.125 mg Q12HR PO 03/20/25 22:00 03/22/25 10:24 3.125 MG Ipratropium [place] 0.5 mg Q4HPRN PRN NEB 03/20/25 10:45 Insulin Human Regular HS SC 03/20/25 22:00 03/21/25 21:45 2 UNITS Insulin Human Regular AC SC 03/20/25 17:00 03/22/25 17:49 3 UNITS Furosemide 40 mg BIDD IV 03/21/25 18:00 03/22/25 17:45 40 MG Methylprednisolone Sodium Succinate 40 mg DAILY IV 03/22/25 10:00 03/22/25 10:24 40 MG Ipratropium [place] 0.5 mg Q4HWA NEB 03/21/25 10:00 03/22/25 14:19 0.5 MG Gabapentin 600 mg TID PO 03/21/25 22:00 03/22/25 13:54 600 MG Nicotine 1 patch DAILY TD 03/22/25 10:00 03/22/25 10:22 1 PATCH Albuterol 2.5 mg Q4HPRN PRN NEB 03/22/25 18:00 Examination General Appearance: Alert, Oriented X3, Cooperative, in severe respiratory distress HEENT: Atraumatic, PERRLA, EOMI, Mucous membrane moist/pink Respiratory: Bilateral crackles and rhonchi Cardiovascular: Regular rate, Normal S1, Normal S2, No murmurs, no chest wall tenderness Abdominal: Normal bowel sounds, Soft, No tenderness, No hepatospenomegaly, No masses Extremities: No clubbing, No cyanosis, No edema, Normal pulses, No tenderness/swelling Skin: No rashes, No breakdown, No significant lesion Neuro: Normal gait, Normal speech, Strength at 5/5 X4 ext, Normal tone, Sensation intact, Cranial nerves 3-12 NL, Reflexes 2+ Psych/Mental Status: Mental status NL, Mood NL laboratory and microbiology Laboratory Tests 03/22/25 06:28 Test 03/22/25 06:28 Range/Units Serum Glucose 144 H 74-106 mg/dL Labs and/or images reviewed: Labs reviewed by me, Image(s) reviewed by me Problem List/Assessment/Plan Problem List/Assessment/Plan Acute on chronic hypoxic respiratory failure, likely due to COPD exacerbation/CHF exacerbation COPD exacerbation Acute on chronic CHF exacerbation History of diastolic heart failure Hypertension Dyslipidemia Ruled out hypertensive urgency Chest x-ray shows, cardiomegaly level bilateral lower zone infiltration Chest U/S shows mild right pleural effusion ABGs shows severe respiratory acidosis with metabolic compensation BiPAP Empiric antibiotic, Rocephin and azithromycin Breathing treatment IV fluid Lasix 40 mg b.i.d. Continue home meds Morbid obesity Obstructive sleep apnea Obesity hyperventilation syndrome BiPAP Uncontrolled diabetes type 2 with hyperglycemia Insulin regular mild SS History of anxiety/depression Chronic back pain Current smoker Smoking cessation per 4 for more than 18 minutes Nicotine patch DIET: Cardiac diet DVT PROPHYLAXIS: Lovenox GI PROPHYLAXIS:: Protonix CODE STATUS: Goal of care discussed for more than 18 minutes, DNR DISPOSITION: Telemetry Patient was counseled for the requirement of BiPAP/CPAP but the patient refuses to use. Patient's status and plan discussed with the patient. Case discussed with Dr. San. Plan discussed with: Patient, Other (RN) My Orders My Orders Orders - MADELINE HUMPHRIES RESDITHAD Procedure Category Date Status Time Albuterol Medneb PHA 03/22/25 In Process (Ventolin Medneb) 18:00 Date of Service: Mar 22, 2025 Billing Provider: JOHN NAZARIO MD Common Visit Codes: [id number] INP/OBS CARE(HIGH) MADELINE HUMPHRIES RESDIENT Mar 22, 2025 18:59 JOHN NAZARIO MD Mar 23, 2025 00:43
[2025-03-22] MEDS: ALBUTEROL SULF 2.5 MG/0.5ML(0.5%) NEB SOLN NEB PRN (21:58)
[2025-03-23] VITALS (19 sets, daily range): BP systolic 95–118; BP diastolic 51–72; PULSE 50–94; RESP 17–97; TEMP 98.2–98.7; O2SAT 20–98
[2025-03-23 07:19] LABS: Basophils # (auto) 0 10 ^3/uL (0-0.2); Basophils % (auto) 0.2 % (0.0-2.0); Eosinophils # (auto) 0.1 10 ^3/uL (0-0.8); Hemoglobin 14.5 g/dL (12.2-16.2); Neutrophils # (auto) 5.3 10 ^3/uL (1.6-8.6); White Blood Cell 8.3 10^3/uL (4.4-10.8)
[2025-03-23 07:25] LABS: Eosinophils % (auto) 1.7 % (0.0-7.0); Hematocrit 46.5 % (36.0-46.0); Lymphocytes # (auto) 2.2 10 ^3/uL (0.4-5.4); Lymphocytes % (auto) 25.8 % (10.0-50.0); Mean Corpuscular Hemoglobin 26.5 pg (28.0-32.0); Mean Corpuscular Hgb Conc. 31.3 g/dL (32.0-36.0); Mean Corpuscular Volume 84.6 fL (80.0-100.0); Monocytes # (auto) 0.7 10 ^3/uL (0-1.3); Monocytes % (auto) 8.8 % (0.0-12.0); Neutrophils % (auto) 63.5 % (37.0-80.0); Nucleated Red Blood Cells % 0.1 %; Platelet Count (auto) 154 10^3/uL (140-450); Red Blood Cells 5.49 10^6/uL (4.0-5.20)
[2025-03-23 07:32] LABS: Alanine Aminotransferase 17 U/L (7-40); Albumin 3.9 g/dL (3.2-4.8); Alkaline Phosphatase 67 U/L (46-116); Aspartate Aminotransferase 21 U/L (13-40); BUN/Creatinine Ratio 28.2 (10.0-20.0); Calcium 9.8 mg/dL (8.7-10.4); Potassium 4.2 mmol/L (3.5-5.1); Sodium 139 mmol/L (136-145); Total Protein 6.9 g/dL (5.7-8.2)
[2025-03-23 07:33] LABS: Bilirubin, Total 0.8 mg/dL (0.2-1.0)
[2025-03-23 07:41] LABS: Anion Gap 5.99999 (5-15); Blood Urea Nitrogen 24 mg/dL (9-23); Chloride 93 mmol/L (98-107); Glucose 145 mg/dL (74-106)
[2025-03-23 07:43] LABS: Carbon Dioxide > 40 mmol/L (20-31)
[2025-03-23] MEDS ORDERED: DOXYCYCLINE 100MG/100ML 100 ML IV ONE (10:30)
[2025-03-23] MEDS: FUROSEMIDE 40 MG/4 ML VIAL IV SCH (11:07)
[2025-03-23] MEDS: DOXYCYCLINE 100MG/100ML 100 ML IV SCH (11:07)
--- NOTE | 2025-03-23 13:16 | DVH ---
CLINICAL HISTORY: DVT/ Abscess TECHNIQUE: Color and duplex doppler imaging of the left lower extremity veins was performed. Vessel c ompression if possible was also performed. WID: COMPARISON: US BILAT LOWER DVT on DOS: 02/10/25, US BILAT LOWER DVT on DOS: 03/01/24 FINDINGS: Left common femoral vein: Normal compressibility and flow. Left femoral vein: Normal compressibility and flow. Left popliteal vein: Normal compressibility and flow. Proximal calf veins are normally compressible. Moderate Subcutaneous edema in the lateral calf. No discrete fluid collection. IMPRESSION: 1. NO SONOGRAPHIC EVIDENCE FOR DEEP VENOUS THROMBOSIS IN THE LEFT LOWER EXTREMITY VEINS. 2. Moderate subcutaneous edema in the lateral left calf. No discrete fluid collection.
--- NOTE | 2025-03-23 15:47 | DVHPNRES ---
Progress Note Date Seen: Mar 23, 2025 Resident Creating Document: MADELINE HUMPHRIES TAY Has the PT tested + for MRSA If YES, has PT been informed?: No Medical Necessity Reason Pt with a Central, PICC or Fol: No Subjective Review of Systems Patient seen and examined at the bedside. Patient is still complaining of shortness of breaths and is in respiratory distress. Also complained of bilateral lower limb heaviness and left-sided limb pain. Patient reports: Feels better Changes from previous H/P or p: Changes Objective vital signs Vital Sign Date Time Temp Pulse Resp B/P (MAP) Pulse Ox O2 Delivery O2 Flow Rate FiO2 03/23/25 14:05 90 20 98 03/23/25 13:57 Nasal Cannula 3.0 03/23/25 13:57 32 03/23/25 13:45 108/51 03/23/25 13:00 98.2 98.2 Total Intake and Output 03/22/25 03/22/25 03/23/25 15:00 23:00 07:00 Intake Total 750 ml 700 ml Output Total 400 ml 2500 ml Balance 350 ml -1800 ml medications Current Medications Medications Dose Ordered Sig/Chance Route Start Time Stop Time Status Last Admin Dose Admin Ondansetron HCl 4 mg Q4HP PRN IV 03/20/25 10:15 Docusate Sodium 100 mg BIDPRN PRN PO 03/20/25 10:15 Enoxaparin Sodium 40 mg DAILY SC 03/21/25 10:00 03/23/25 09:46 40 MG Acetaminophen 650 mg Q6HP PRN PO 03/20/25 10:15 Nitroglycerin 0.4 mg Q5MINP PRN SL 03/20/25 10:15 Morphine Sulfate 2 mg Q30M PRN IV 03/20/25 10:15 Acetaminophen/ Hydrocodone Bitart 1 tab Q6HP PRN PO 03/20/25 10:15 03/23/25 09:46 1 TAB Morphine Sulfate 2 mg Q6HPRN PRN IV 03/20/25 10:15 Azithromycin 250 ml @ 125 mls/hr DAILY IV 03/20/25 10:30 03/22/25 12:24 125 MLS/HR Potassium Chloride 20 meq DAILY PO 03/21/25 10:00 03/23/25 09:47 20 MEQ Pantoprazole Sodium 40 mg DAILY@0600 PO 03/21/25 06:00 03/23/25 06:01 40 MG Diagnostic Test (Pha) 1 strip ACHS 03/20/25 11:30 03/23/25 11:49 1 STRIP Dextrose 50 ml UD PRN IV 03/20/25 10:30 Carvedilol 3.125 mg Q12HR PO 03/20/25 22:00 03/23/25 11:07 3.125 MG Ipratropium [place] 0.5 mg Q4HPRN PRN NEB 03/20/25 10:45 Insulin Human Regular HS SC 03/20/25 22:00 03/21/25 21:45 2 UNITS Insulin Human Regular AC SC 03/20/25 17:00 03/23/25 12:27 6 UNITS Methylprednisolone Sodium Succinate 40 mg DAILY IV 03/22/25 10:00 03/23/25 09:47 40 MG Ipratropium [place] 0.5 mg Q4HWA NEB 03/21/25 10:00 03/23/25 13:57 0.5 MG Gabapentin 600 mg TID PO 03/21/25 22:00 03/23/25 06:01 600 MG Nicotine 1 patch DAILY TD 03/22/25 10:00 03/22/25 10:22 1 PATCH Albuterol 2.5 mg Q4HPRN PRN NEB 03/22/25 18:00 03/23/25 13:57 2.5 MG Furosemide 40 mg TID IV 03/23/25 10:30 03/23/25 11:07 40 MG Doxycycline Hyclate 100 ml @ 50 mls/hr Q12H IV 03/23/25 10:30 03/23/25 11:07 50 MLS/HR Examination General Appearance: Alert, Oriented X3, Cooperative, in severe respiratory distress HEENT: Atraumatic, PERRLA, EOMI, Mucous membrane moist/pink Respiratory: Bilateral crackles and rhonchi Cardiovascular: Regular rate, Normal S1, Normal S2, No murmurs, no chest wall tenderness Abdominal: Normal bowel sounds, Soft, No tenderness, No hepatospenomegaly, No masses Extremities: No clubbing, No cyanosis, No edema, Normal pulses, No tenderness/swelling Skin: No rashes, No breakdown, No significant lesion Neuro: Normal gait, Normal speech, Strength at 5/5 X4 ext, Normal tone, Sensation intact, Cranial nerves 3-12 NL, Reflexes 2+ Psych/Mental Status: Mental status NL, Mood NL laboratory and microbiology Laboratory Tests 03/23/25 05:55 Test 03/23/25 05:55 Range/Units Serum Glucose 145 H 74-106 mg/dL Microbiology Date/Time Source Procedure Growth Status 03/21/25 17:25 Nose MRSA Screen - Final Complete Labs and/or images reviewed: Labs reviewed by me, Image(s) reviewed by me Problem List/Assessment/Plan Problem List/Assessment/Plan Acute on chronic hypoxic respiratory failure, likely due to COPD exacerbation/CHF exacerbation COPD exacerbation Acute on chronic CHF exacerbation History of diastolic heart failure Hypertension Dyslipidemia Ruled out hypertensive urgency Chest x-ray shows, cardiomegaly level bilateral lower zone infiltration Chest U/S shows mild right pleural effusion ABGs shows severe respiratory acidosis with metabolic compensation BiPAP Empiric antibiotic, Rocephin and azithromycin Breathing treatment IV fluid Lasix 40 mg b.i.d. Continue home meds Morbid obesity Obstructive sleep apnea Obesity hyperventilation syndrome BiPAP Uncontrolled diabetes type 2 with hyperglycemia Insulin regular mild SS History of anxiety/depression Chronic back pain Current smoker Smoking cessation per 4 for more than 18 minutes Nicotine patch Left lower limb cellulitis Ultrasound shows, moderate subcutaneous edema in the lateral left calf. No discrete fluid collection Empiric antibiotic, doxycycline DIET: Cardiac diet DVT PROPHYLAXIS: Lovenox GI PROPHYLAXIS:: Protonix CODE STATUS: Goal of care discussed for more than 18 minutes, DNR DISPOSITION: Telemetry Patient was counseled for the requirement of BiPAP/CPAP but the patient refuses to use. Patient's status and plan discussed with the patient. Case discussed with Dr. San. Plan discussed with: Patient, Other (RN) My Orders My Orders Orders - MADELINE HUMPHRIES RESDITHAD Procedure Category Date Status Time Albuterol Medneb PHA 03/22/25 In Process (Ventolin Medneb) 18:00 Discontinue Tele FELIX 03/23/25 In Process 06:40 Transfer Orders XFER 03/23/25 Transmitted 06:40 Communication Order ORDERS 03/23/25 Transmitted 06:40 Pt Request For Service PT 03/23/25 Logged 08:14 Lt Lower Dvt US 03/23/25 Resulted 10:03 Furosemide Injection PHA 03/23/25 In Process (Lasix Injection) 10:30 Doxycycline PHA 03/23/25 In Process 100mg/100ml 10:30 Dietary Evaluation Review Comments: 1. 2 Na CCHO-60 diet, monitor PO intake to meet 75% of her needs 2. Life style changes; tobacco cessation classes and Wt loss programs Expected Outcomes/Goals: gradual wt loss. Date of Service: Mar 23, 2025 Billing Provider: JOHN NAZARIO MD Common Visit Codes: [id number] INP/OBS CARE(HIGH) MADELINE HUMPHRIES RESDIENT Mar 23, 2025 15:47 JOHN NAZARIO MD April 02, 2025 21:28
[2025-03-24] VITALS (15 sets, daily range): BP systolic 110–136; BP diastolic 57–81; PULSE 81–89; RESP 14–20; TEMP 97.5–98.6; O2SAT 90–99
[2025-03-24 07:25] LABS: Alanine Aminotransferase 26 U/L (7-40); Albumin 3.8 g/dL (3.2-4.8); Alkaline Phosphatase 67 U/L (46-116); BUN/Creatinine Ratio 24.4 (10.0-20.0); Blood Urea Nitrogen 20 mg/dL (9-23); Potassium 4.1 mmol/L (3.5-5.1); Sodium 139 mmol/L (136-145); Total Protein 6.8 g/dL (5.7-8.2)
[2025-03-24 07:26] LABS: Aspartate Aminotransferase 29 U/L (13-40)
[2025-03-24 07:28] LABS: Basophils # (auto) 0 10 ^3/uL (0-0.2); Eosinophils # (auto) 0.1 10 ^3/uL (0-0.8); Eosinophils % (auto) 1.1 % (0.0-7.0); Hematocrit 46.9 % (36.0-46.0); Hemoglobin 14.6 g/dL (12.2-16.2); Lymphocytes # (auto) 1.4 10 ^3/uL (0.4-5.4); Lymphocytes % (auto) 17.7 % (10.0-50.0); Mean Corpuscular Hemoglobin 26.1 pg (28.0-32.0); Mean Corpuscular Hgb Conc. 31.2 g/dL (32.0-36.0); Mean Corpuscular Volume 83.7 fL (80.0-100.0); Monocytes # (auto) 0.7 10 ^3/uL (0-1.3); Neutrophils # (auto) 5.6 10 ^3/uL (1.6-8.6); Neutrophils % (auto) 72.2 % (37.0-80.0); Nucleated Red Blood Cells % 0.1 %; Platelet Count (auto) 136 10^3/uL (140-450); Red Blood Cells 5.61 10^6/uL (4.0-5.20); Red Cell Distribution Width 16.8 % (11.8-14.3); White Blood Cell 7.8 10^3/uL (4.4-10.8)
[2025-03-24 07:34] LABS: Anion Gap 8.99999 (5-15); Chloride 90 mmol/L (98-107); Glucose 130 mg/dL (74-106)
[2025-03-24 07:35] LABS: Carbon Dioxide > 40 mmol/L (20-31)
[2025-03-24] MEDS: predniSONE 20 MG TAB PO ONE (10:52)
[2025-03-24] MEDS: cefTRIAXone 1GM/50ML D5W 50 ML IV ONE (11:02)
--- NOTE | 2025-03-24 18:05 | DVHPNRES ---
Progress Note Date Seen: Mar 24, 2025 Resident Creating Document: MADELINE HUMPHRIES TAY Has the PT tested + for MRSA If YES, has PT been informed?: No Medical Necessity Reason Pt with a Central, PICC or Fol: No Subjective Review of Systems Patient seen and examined at bedside. Patient is still complaining of shortness but feeling better than yesterday. Objective vital signs Vital Sign Date Time Temp Pulse Resp B/P (MAP) Pulse Ox O2 Delivery O2 Flow Rate FiO2 03/24/25 13:48 82 18 98 03/24/25 13:41 Nasal Cannula* 4 36 03/24/25 13:00 97.5 118/59 (78) 97.5 Total Intake and Output 03/23/25 03/23/25 03/24/25 15:00 23:00 07:00 Intake Total 1200 ml 750 ml Output Total 3100 ml Balance 1200 ml -2350 ml medications Current Medications Medications Dose Ordered Sig/Chance Route Start Time Stop Time Status Last Admin Dose Admin Ondansetron HCl 4 mg Q4HP PRN IV 03/20/25 10:15 Docusate Sodium 100 mg BIDPRN PRN PO 03/20/25 10:15 Enoxaparin Sodium 40 mg DAILY SC 03/21/25 10:00 03/24/25 10:49 40 MG Acetaminophen 650 mg Q6HP PRN PO 03/20/25 10:15 Nitroglycerin 0.4 mg Q5MINP PRN SL 03/20/25 10:15 Morphine Sulfate 2 mg Q30M PRN IV 03/20/25 10:15 Acetaminophen/ Hydrocodone Bitart 1 tab Q6HP PRN PO 03/20/25 10:15 03/24/25 11:46 1 TAB Morphine Sulfate 2 mg Q6HPRN PRN IV 03/20/25 10:15 Azithromycin 250 ml @ 125 mls/hr DAILY IV 03/20/25 10:30 03/24/25 10:48 125 MLS/HR Potassium Chloride 20 meq DAILY PO 03/21/25 10:00 03/24/25 10:49 20 MEQ Pantoprazole Sodium 40 mg DAILY@0600 PO 03/21/25 06:00 03/24/25 05:58 40 MG Diagnostic Test (Pha) 1 strip ACHS 03/20/25 11:30 03/24/25 17:59 1 STRIP Dextrose 50 ml UD PRN IV 03/20/25 10:30 Carvedilol 3.125 mg Q12HR PO 03/20/25 22:00 03/24/25 10:50 3.125 MG Ipratropium [place] 0.5 mg Q4HPRN PRN NEB 03/20/25 10:45 Insulin Human Regular HS SC 03/20/25 22:00 03/23/25 21:35 6 UNITS Insulin Human Regular AC SC 03/20/25 17:00 03/24/25 18:00 9 UNITS Ipratropium [place] 0.5 mg Q4HWA NEB 03/21/25 10:00 03/24/25 13:41 0.5 MG Gabapentin 600 mg TID PO 03/21/25 22:00 03/24/25 14:17 600 MG Nicotine 1 patch DAILY TD 03/22/25 10:00 03/24/25 10:49 1 PATCH Albuterol 2.5 mg Q4HPRN PRN NEB 03/22/25 18:00 03/24/25 13:41 2.5 MG Doxycycline Hyclate 100 ml @ 50 mls/hr Q12H IV 03/23/25 10:30 03/24/25 10:50 50 MLS/HR Furosemide 40 mg BIDD IV 03/24/25 18:00 Ceftriaxone Sodium 50 ml @ 100 mls/hr DAILY@09 IV 03/25/25 09:00 Prednisone 40 mg DAILY PO 03/25/25 10:00 Examination General Appearance: Alert, Oriented X3, Cooperative, in moderate respiratory distress HEENT: Atraumatic, PERRLA, EOMI, Mucous membrane moist/pink Respiratory: Bilateral crackles and rhonchi Cardiovascular: Regular rate, Normal S1, Normal S2, No murmurs, no chest wall tenderness Abdominal: Normal bowel sounds, Soft, No tenderness, No hepatospenomegaly, No masses Extremities: No clubbing, No cyanosis, No edema, Normal pulses, No tenderness/swelling Skin: No rashes, No breakdown, No significant lesion Neuro: Normal gait, Normal speech, Strength at 5/5 X4 ext, Normal tone, Sensation intact, Cranial nerves 3-12 NL, Reflexes 2+ Psych/Mental Status: Mental status NL, Mood NL laboratory and microbiology Laboratory Tests 03/24/25 05:52 Test 03/24/25 05:52 Range/Units Serum Glucose 130 H 74-106 mg/dL Microbiology Date/Time Source Procedure Growth Status 03/21/25 17:25 Nose MRSA Screen - Final Complete Labs and/or images reviewed: Labs reviewed by me, Image(s) reviewed by me Problem List/Assessment/Plan Problem List/Assessment/Plan Acute on chronic hypoxic respiratory failure, likely due to COPD exacerbation/CHF exacerbation COPD exacerbation Acute on chronic CHF exacerbation History of diastolic heart failure Hypertension Dyslipidemia Ruled out hypertensive urgency Chest x-ray shows, cardiomegaly level bilateral lower zone infiltration Chest U/S shows mild right pleural effusion ABGs shows severe respiratory acidosis with metabolic compensation BiPAP Empiric antibiotic, Rocephin and azithromycin Breathing treatment IV fluid Lasix 40 mg b.i.d. Continue home meds Morbid obesity Obstructive sleep apnea Obesity hyperventilation syndrome BiPAP Uncontrolled diabetes type 2 with hyperglycemia Insulin regular mild SS History of anxiety/depression Chronic back pain Current smoker Smoking cessation per 4 for more than 18 minutes Nicotine patch Left lower limb cellulitis Ultrasound shows, moderate subcutaneous edema in the lateral left calf. No discrete fluid collection Empiric antibiotic, doxycycline DIET: Cardiac diet DVT PROPHYLAXIS: Lovenox GI PROPHYLAXIS:: Protonix CODE STATUS: Goal of care discussed for more than 18 minutes, DNR DISPOSITION: Telemetry Patient was counseled for the requirement of BiPAP/CPAP but the patient refuses to use. Patient's status and plan discussed with the patient. Case discussed with Dr. San. Plan discussed with: Patient, Other (RN) My Orders My Orders Orders - MADELINE HUMPHRIES RESDITHAD Procedure Category Date Status Time Furosemide Injection PHA 03/24/25 In Process (Lasix Injection) 18:00 Ceftriaxone 1gm/50ml PHA 03/25/25 In Process D5w (Rocephin) 09:00 Prednisone Tablet PHA 03/25/25 In Process 10:00 Dietary Evaluation Review Comments: 1. 2 Na CCHO-60 diet, monitor PO intake to meet 75% of her needs 2. Life style changes; tobacco cessation classes and Wt loss programs Expected Outcomes/Goals: gradual wt loss. Date of Service: Mar 24, 2025 Billing Provider: JOHN NAZARIO MD Common Visit Codes: [id number] INP/OBS CARE(HIGH) MADELINE HUMPHRIES RESDIENT Mar 24, 2025 18:05 JOHN NAZARIO MD April 02, 2025 21:14
[2025-03-24] MEDS: FUROSEMIDE 40 MG/4 ML VIAL IV SCH (18:24)
[2025-03-25] VITALS (14 sets, daily range): BP systolic 88–144; BP diastolic 40–84; PULSE 71–88; RESP 16–22; TEMP 36.7; O2SAT 90–98
[2025-03-25 08:10] LABS: Basophils # (auto) 0 10 ^3/uL (0-0.2); Basophils % (auto) 0.1 % (0.0-2.0); Eosinophils # (auto) 0.1 10 ^3/uL (0-0.8); Monocytes # (auto) 0.6 10 ^3/uL (0-1.3); Red Blood Cells 5.61 10^6/uL (4.0-5.20)
[2025-03-25 08:13] LABS: Eosinophils % (auto) 1.6 % (0.0-7.0); Hemoglobin 14.8 g/dL (12.2-16.2); Lymphocytes # (auto) 2.3 10 ^3/uL (0.4-5.4); Lymphocytes % (auto) 25.6 % (10.0-50.0); Mean Corpuscular Hemoglobin 26.4 pg (28.0-32.0); Mean Corpuscular Hgb Conc. 31.5 g/dL (32.0-36.0); Mean Corpuscular Volume 83.7 fL (80.0-100.0); Monocytes % (auto) 7.2 % (0.0-12.0); Neutrophils # (auto) 5.8 10 ^3/uL (1.6-8.6); Neutrophils % (auto) 65.5 % (37.0-80.0); Nucleated Red Blood Cells % 0.2 %; Platelet Count (auto) 139 10^3/uL (140-450); Red Cell Distribution Width 17.1 % (11.8-14.3); White Blood Cell 8.9 10^3/uL (4.4-10.8)
[2025-03-25 08:29] LABS: Alanine Aminotransferase 31 U/L (7-40); Alkaline Phosphatase 63 U/L (46-116); Aspartate Aminotransferase 28 U/L (13-40); BUN/Creatinine Ratio 26.6 (10.0-20.0); Blood Urea Nitrogen 21 mg/dL (9-23); Calcium 10.2 mg/dL (8.7-10.4); Potassium 3.6 mmol/L (3.5-5.1); Sodium 140 mmol/L (136-145)
[2025-03-25 08:37] LABS: Anion Gap 10.99999 (5-15); Bilirubin, Total 1.3 mg/dL (0.2-1.0); Chloride 89 mmol/L (98-107); Glucose 132 mg/dL (74-106)
[2025-03-25 08:38] LABS: Carbon Dioxide > 40 mmol/L (20-31)
[2025-03-25] MEDS: cefTRIAXone 1GM/50ML D5W 50 ML IV SCH (09:25)
[2025-03-25] MEDS: predniSONE 20 MG TAB PO SCH (09:56)
--- NOTE | 2025-03-25 10:22 | DVHDSRES ---
Discharge Summary Date of Admission Resident Creating Document: MADELINE HUMPHRIES RESDIENT Mar 20, 2025 at 10:12 Date of Discharge: Mar 25, 2025 Admitting Diagnosis SHORTNESS OF BREATHS Labs/Diagnostic Data: Laboratory Results Test 03/25/25 07:30 03/25/25 06:10 03/21/25 22:55 03/21/25 17:25 White Blood Count 8.9 10^3/uL (4.4-10.8) Red Blood Count 5.61 10^6/uL (4.0-5.20) Hemoglobin 14.8 g/dL (12.2-16.2) Hematocrit 47.0 % (36.0-46.0) Mean Corpuscular Volume 83.7 fL (80.0-100.0) Mean Corpuscular Hemoglobin 26.4 pg (28.0-32.0) Mean Corpuscular Hemoglobin Concent 31.5 g/dL (32.0-36.0) Red Cell Distribution Width 17.1 % (11.8-14.3) Platelet Count 139 10^3/uL (140-450) Mean Platelet Volume 8.0 fL (6.9-10.8) Neutrophils (%) (Auto) 65.5 % (37.0-80.0) Lymphocytes (%) (Auto) 25.6 % (10.0-50.0) Monocytes (%) (Auto) 7.2 % (0.0-12.0) Eosinophils (%) (Auto) 1.6 % (0.0-7.0) Basophils (%) (Auto) 0.1 % (0.0-2.0) Neutrophils # (Auto) 5.8 10 ^3/uL (1.6-8.6) Lymphocytes # (Auto) 2.3 10 ^3/uL (0.4-5.4) Monocytes # (Auto) 0.6 10 ^3/uL (0-1.3) Eosinophils # (Auto) 0.1 10 ^3/uL (0-0.8) Basophils # (Auto) 0 10 ^3/uL (0-0.2) Nucleated Red Blood Cells 0.2 % Sodium Level 140 mmol/L (136-145) Potassium Level 3.6 mmol/L (3.5-5.1) Chloride Level 89 mmol/L (98-107) Carbon Dioxide Level > 40 mmol/L (20-31) Anion Gap 10.12240 (5-15) Blood Urea Nitrogen 21 mg/dL (9-23) Creatinine 0.79 mg/dL (0.550-1.02) Glomerular Filtration Rate Calc 86 mL/min (>90) BUN/Creatinine Ratio 26.6 (10.0-20.0) Serum Glucose 132 mg/dL (74-106) Calcium Level 10.2 mg/dL (8.7-10.4) Total Bilirubin 1.3 mg/dL (0.2-1.0) Aspartate Amino Transferase (AST) 28 U/L (13-40) Alanine Aminotransferase (ALT) 31 U/L (7-40) Alkaline Phosphatase 63 U/L (46-116) Total Protein 7.0 g/dL (5.7-8.2) Albumin 4.0 g/dL (3.2-4.8) POC Glucose 146 mg/dl (70-106) Urine Opiates Screen Neg (NEGATIVE) Urine Fentanyl Screen Neg (NEGATIVE) Urine Barbiturates Screen Neg (NEGATIVE) Urine Phencyclidine Screen Neg (NEGATIVE) Urine Amphetamines Screen Neg (NEGATIVE) Urine Benzodiazepines Screen Neg (NEGATIVE) Urine Cocaine Screen Neg (NEGATIVE) Urine Cannabinoids Screen Neg (NEGATIVE) Influenza Type A Antigen Negative (Negative) Influenza Type B Antigen Negative (Negative) SARS-CoV-2 Antigen (Rapid) Negative (NEGATIVE) Test 03/21/25 09:04 03/21/25 05:30 03/20/25 12:50 03/20/25 09:34 Blood Gas Specimen Type Arterial Blood Gas Sample Site Left radial Blood Gas Patient Temperature 37.0 Arterial Blood Date Drawn [id number] Arterial Blood pH 7.406 (7.350-7.450) Arterial Blood Partial Pressure CO2 68.9 mmHg (32.0-45.0) Arterial Blood Partial Pressure O2 64.9 mmHg (83.0-108.0) Arterial Blood HCO3 42.3 mmol/L (21.0-28.0) Arterial Blood Oxygen Saturation 93.7 % (94.0-98.0) Arterial Blood Base Excess 13.9 mmol/L (-2.0-3.0) Arterial Blood Oxyhemoglobin 90.5 % (94.0-98.0) Arterial Blood Carboxyhemoglobin 2.9 % (0.5-1.5) Arterial Blood Methemoglobin 0.5 % (0.0-1.5) Paulo Test Yes Blood Gas Total Hemoglobin 15.20 g/dL (12.0-16.0) Blood Gas Set Respiration Rate 16.0 Blood Gas Modality Mask - bipap FiO2 % 40.0 Blood Gas EPAP 6 Blood Gas IPAP 18 Blood Gas Critical Value Read Back Yes Blood Gas Notified Whom latisha Marmolejo Blood Gas Notified Time [id number] Blood Gas Notified By Core Placer lobito farrell Prothrombin Time 12.4 sec (9.3-11.8) Prothrombin Time INR 1.19 (0.9-1.15) Activated Partial Thromboplast Time 25.9 SEC (24.5-34.5) B-Type Natriuretic Peptide 523.35 pg/mL (0-100) Urine Color Light-yellow (Yellow) Urine Clarity Clear (Clear) Urine pH 7.0 (5.0-9.0) Urine Specific [place] 1.006 (1.001-1.035) Urine Protein Negative (Negative) Urine Ketones Negative (Negative) Urine Blood Negative /uL (Negative) Urine Nitrite Negative (Negative) Urine Bilirubin Negative (Negative) Urine Urobilinogen Normal mg/dL (Negative) Urine Leukocyte Esterase Negative /uL (Negative) Urine RBC 1 /hpf (0 - 4) Urine Microscopic WBC 5 /HPF (0-5) Urine Squamous Epithelial Cells Few /hpf (<5) Urine Bacteria Few /hpf (None Seen) Urine Glucose Normal mg/dL (Normal) Troponin I High Sensitivity 12 ng/L (</=34) Other Laboratory Tests 03/25/25 07:30 Brief Hx & Hospital Course: This is a 59-year-old female with past medical history of HFpEF, COPD (on 2 L of oxygen at home, diabetes type 2, hypertension, came to the hospital due to shortness of breath functional class 4. She was discharged from hospital 1 month back, had admitted due to heart failure exacerbation. Per patient she had shortness of breaths since discharge, has progressively worsened which prompted this visit. She also reports chest discomfort, cough, bilateral lower limb swelling, generalized weakness and fatigue. She denies fever, nausea, vomiting, or any recent bowel or bladder habit changes. Previous hospitalization: Discharged from [facility] on 02/10/2025, had admitted due to CHF exacerbation PMHx: HFpEF, COPD (on 2 L of oxygen at home, diabetes type 2, hypertension, dyslipidemia, morbid obesity, obstructive sleep apnea (recommended CPAP at home, but the patient is noncompliant, diabetes type 2, chronic back pain, anxiety and depression PSHx: Cholecystectomy and hysterectomy Family history: Noncontributory Social history: Current smoker 50 pack year history Home medication: Clyde, Ozempic, Lasix, gabapentin, carvedilol, Allergic history: Hydromorphone, strawberry, vancomycin Hospital course: Patient was admitted on the line of COPD exacerbation and acute on chronic diastolic heart failure. She was started on IV diuretic (Lasix), ABGs showed severe respiratory acidosis with pCO2 89, put on BiPAP on subsequent ABGs pCO2 decreased to 69, but later the patient refused CPAP and did not use the CPAP/BiPAP during all hospitalization course including during night. For COPD exacerbation, the patient was given breathing treatment, IV steroid, and empiric antibiotic of azithromycin. The patient also had left lower limb cellulitis, DVT and abscess for ruled out through ultrasound, the patient was given empiric antibiotic of doxycycline. Patient's home medication except Jardiance were continued. Condition at Discharge: Stable Final Diagnosis/Problems List Acute on chronic hypoxic respiratory failure, likely due to COPD exacerbation/CHF exacerbation COPD exacerbation Acute on chronic CHF exacerbation History of diastolic heart failure Hypertension Dyslipidemia Ruled out hypertensive urgency Morbid obesity Uncontrolled diabetes type 2 with hyperglycemia History of anxiety/depression Current smoker, nicotine dependence Chronic back pain Nonadherence to the medicine Ruled out hypertensive urgency Ruled out autonomic disorder Obstructive sleep apnea on CPAP Discharge Disposition: Home Discharge Instruct/Medications Diet: Cardiac 2g Na,low cholest Activity: No Restrictions, As Tolerated Follow Up/Referral: Follow up with the PCP within 1 week of the discharge. Follow up with the pulmonology on outpatient basis. Follow up with the Cardiology on outpatient basis Follow up with the discharge Clinic within 1 week after discharge. Medications: Increased dose of Lasix from 20 mg daily to 40 mg daily. Start Aldactone 25 mg daily Continue home meds Discharge Statement: "Patient was advised to return to the ER or call 911 if any headaches, dizziness, shortness of breath, chest pain, abdominal pain, bleeding, fevers, or worsening of medical condition. Patient was counseled about treatment plan, medications, possible side effects, patientverbalized understanding. All questions were answered to the best of my ability. This discharge took greater then 30 minutes in planning, reviewing documentation, counseling the patient, and discussing with other team members." DME: Diagnosis: OBESITY, NECK PAIN, SOB ASSESSMENT ASSESSMENT Assessment Acute exacerbation of CHF Acute COPD exacerbation Date of Service: Mar 25, 2025 Billing Provider: JOHN NAZARIO MD Common Visit Codes: 70234-CWJ/OBS DISCH DAY >30min MADELINE HUMPHRIES RESDIENT Mar 25, 2025 10:22 JOHN NAZARIO MD April 02, 2025 22:22
== END 2025-03-25 19:05 | disposition home or self-care (01) | DRG 133 ==
LOC: ER 05:36 → EDBD 05:36 → OVERFLOW 10:12 → TELE-CENTR 03-21 09:28 → CENTRAL 03-23 08:06
PROVIDERS: ADMIT Student in an Organized Health Care Education/Training Program; ATTEND Student in an Organized Health Care Education/Training Program
PROC: 5A09357 Assistance with Respiratory Ventilation, Less than 24 Consecutive Hours, Continuous Positive Airway Pressure (ICD-10-PCS; principal; 2025-03-21)
DX: J96.21 Acute and chronic respiratory failure with hypoxia (principal); I50.33 Acute on chronic diastolic (congestive) heart failure; J44.1 Chronic obstructive pulmonary disease with (acute) exacerbation; L03.116 Cellulitis of left lower limb; E66.2 Morbid (severe) obesity with alveolar hypoventilation; Z68.43 Body mass index [BMI] 50.0-59.9, adult; I11.0 Hypertensive heart disease with heart failure; Z99.81 Dependence on supplemental oxygen; G89.29 Other chronic pain; F17.210 Nicotine dependence, cigarettes, uncomplicated; E11.65 Type 2 diabetes mellitus with hyperglycemia; E78.5 Hyperlipidemia, unspecified; Z91.018 Allergy to other foods; Z88.6 Allergy status to analgesic agent; Z79.84 Long term (current) use of oral hypoglycemic drugs; Z79.1 Long term (current) use of non-steroidal anti-inflammatories (NSAID); Z79.899 Other long term (current) drug therapy; Z90.49 Acquired absence of other specified parts of digestive tract; Z71.6 Tobacco abuse counseling; Z83.3 Family history of diabetes mellitus; Z87.442 Personal history of urinary calculi; Z90.710 Acquired absence of both cervix and uterus; Z88.1 Allergy status to other antibiotic agents; Z91.199 Patient's noncompliance with other medical treatment and regimen due to unspecified reason; Z85.43 Personal history of malignant neoplasm of ovary
CPT/HCPCS: 36415; 36600; 71045; 76604; 80048; 80053; 80307; 81001; 82805; 82962; 83880; 84484; 85025; 85610; 85730; 87081; 87426; 87804; 93971; 94640; 94660; 96374; 97110; 97116; 97163; 99291; 99292; G0378; J1815